=== PATIENT | male | born 1975 | race Two or more races ===

== ENCOUNTER 2020-07-07 09:16 | Outpatient (REF) | payer OTHER, SELFPAY ==
[2020-07-07 10:03] LABS: MANUAL DIFF FLAG NO
[2020-07-07 10:09] LABS: Basophils Percent Auto 0.3 % (0-2); Eosinophils Absolute Auto 0.1 X10*3/uL (0.0-0.4); Eosinophils Percent Auto 1.4 % (0-4); Hematocrit 44.6 % (42-52); Hemoglobin 14.7 g/dl (14.0-18.0); Imm Gran Pct Auto 1.1 % (0.0-0.4); Lymphocytes Absolute Auto 2.8 X10*3/uL (1.2-4.9); Lymphocytes Percent Auto 32.5 % (20-40); Mean Corpuscular Hemoglobin 29.3 pg (27.0-33.0); Mean Corpuscular Volume 88.8 fL (80-98); Monocytes Absolute Auto 0.6 X10*3/uL (0.1-1.2); Monocytes Percent Auto 7.3 % (2-11); Neutrophils Percent Auto 57.4 % (45-73); Platelet Count 146 X10*3/uL (160-400); Red Blood Count 5.02 X10*6/uL (4.60-5.80); Red Cell Distribution Width 13.6 % (11.0-16.0); White Blood Count 8.7 X10*3/uL (4.8-10.8)
[2020-07-07 10:36] LABS: Alanine Aminotransferase 74 U/L (0-40); Albumin Level 4.5 g/dL (3.5-5.0); Alkaline Phosphatase 80 U/L (39-117); Anion Gap 14 (12-20); Aspartate Amino Transferase 36 U/L (5-37); Bilirubin Total 0.3 mg/dL (0.0-1.0); Blood Urea Nitrogen 18 mg/dL (9-16); Calcium 9.3 mg/dL (8.4-10.2); Carbon Dioxide 29 mmol/L (22-29); Chloride 104 mmol/L (96-108); Cholesterol 156 mg/dL; Estimated Glomerular Filt Rate > 60; Glucose Fasting 166 mg/dL (60-99); HDL Cholesterol 40 mg/dL; LDL Cholesterol Calculated 76 mg/dl; Potassium 4.6 mmol/l (3.3-5.1); Sodium 142 mmol/L (135-145); Total Protein 7.2 g/dL (6.5-8.0); Triglycerides 204 mg/dL
[2020-07-07 10:43] LABS: Glucose Urine UA NEG (NEG); Leukocyte Esterase Urine NEG (NEG); Nitrite Urine NEG (NEG); PH 5.5 (5.0-8.0); Specific Gravity - Urine >= 1.030 (1.005-1.025); Urine Blood TRACE (NEG); Urine Ketones NEG (NEG); Urine Protein NEG (NEG-TRACE)
[2020-07-07 10:46] LABS: Appearance Urine CLEAR; Color Urine YELLOW
[2020-07-07 10:52] LABS: Creatinine Urine 161.51 mg/dL; Microalbum/Creatinine Ratio Ur 5.5 ug/mg cr
[2020-07-07 10:56] LABS: TSH reflex Free T4 1.64 mIU/mL (0.32-4.0)
[2020-07-07 11:07] LABS: RBC Urine 0-2 /HPF (0); WBC Urine 0-2 /HPF (0-4)
== END 2020-07-07 09:17 | disposition home or self-care (01) ==
LOC: HO.LAB 09:16
PROVIDERS: PCP Internal Medicine; Visit Provider Internal Medicine
DX: M51.36 Other intervertebral disc degeneration, lumbar region (principal); K21.9 Gastro-esophageal reflux disease without esophagitis; G47.62 Sleep related leg cramps; E11.9 Type 2 diabetes mellitus without complications; E78.5 Hyperlipidemia, unspecified; R79.89 Other specified abnormal findings of blood chemistry
CPT/HCPCS: 36415; 80053; 80061; 81001; 82043; 84443; 85025

== ENCOUNTER → 2020-09-22 14:45 | Outpatient (BNVA) | payer OTHER, SELFPAY | PROVIDERS: Visit Provider Nurse Practitioner Family | DX: K21.9 Gastro-esophageal reflux disease without esophagitis (principal); E78.5 Hyperlipidemia, unspecified; E11.9 Type 2 diabetes mellitus without complications; E66.9 Obesity, unspecified; Z87.891 Personal history of nicotine dependence; Z79.899 Other long term (current) drug therapy | CPT/HCPCS: Q3014 ==

== ENCOUNTER 2020-10-07 09:05 | Outpatient (REF) | payer OTHER, SELFPAY ==
[2020-10-07 10:32] LABS: MANUAL DIFF FLAG SCAN; PLT CLUMP 1; SCAN SMEAR FLAG 1
[2020-10-07 10:34] LABS: Basophils Percent Auto 0.3 % (0-2); Eosinophils Absolute Auto 0.1 X10*3/uL (0.0-0.4); Eosinophils Percent Auto 1.2 % (0-4); Hematocrit 45.6 % (42-52); Hemoglobin 14.8 g/dl (14.0-18.0); Imm Gran Abs Auto 0.08 X10*3/uL (0.00-0.03); Imm Gran Pct Auto 0.8 % (0.0-0.4); Lymphocytes Absolute Auto 3.2 X10*3/uL (1.2-4.9); Lymphocytes Percent Auto 33.5 % (20-40); Mean Corpuscular HGB Conc 32.5 g/dl (31.0-36.0); Mean Corpuscular Hemoglobin 29.1 pg (27.0-33.0); Mean Corpuscular Volume 89.6 fL (80-98); Monocytes Absolute Auto 0.7 X10*3/uL (0.1-1.2); Monocytes Percent Auto 7.2 % (2-11); Neutrophils Absolute Auto 5.4 X10*3/uL (2.0-8.3); Red Blood Count 5.09 X10*6/uL (4.60-5.80); White Blood Count 9.4 X10*3/uL (4.8-10.8)
[2020-10-07 10:53] LABS: Microalbum/Creatinine Ratio Ur 6.9 ug/mg cr
[2020-10-07 10:57] LABS: Alanine Aminotransferase 71 U/L (0-40); Albumin Level 4.4 g/dL (3.5-5.0); Alkaline Phosphatase 102 U/L (39-117); Anion Gap 13 (12-20); Aspartate Amino Transferase 35 U/L (5-37); Bilirubin Total 0.7 mg/dL (0.0-1.0); Blood Urea Nitrogen 20 mg/dL (9-16); Calcium 9.2 mg/dL (8.4-10.2); Carbon Dioxide 27 mmol/L (22-29); Chloride 104 mmol/L (96-108); Cholesterol 157 mg/dL; Estimated Glomerular Filt Rate > 60; Glucose Fasting 224 mg/dL (60-99); Glucose Urine UA 100 MG/DL (NEG); HDL Cholesterol 35 mg/dL; LDL Cholesterol Calculated 78 mg/dl; Leukocyte Esterase Urine NEG (NEG); Nitrite Urine NEG (NEG); PH 5.5 (5.0-8.0); Potassium 4.3 mmol/L (3.3-5.1); Sodium 140 mmol/L (135-145); Specific Gravity - Urine >= 1.030 (1.005-1.025); Total Protein 7.2 g/dL (6.5-8.0); Triglycerides 222 mg/dL; Urine Blood NEG (NEG); Urine Ketones 5 MG/DL (NEG); Urine Protein NEG (NEG-TRACE)
[2020-10-07 10:58] LABS: Estimated Average Glucose 186 mg/dL; Hemoglobin A1c % 8.1 %
[2020-10-07 11:06] LABS: Appearance Urine CLEAR; Color Urine YELLOW
[2020-10-07 11:18] LABS: TSH reflex Free T4 2.55 uIU/mL (0.32-4.0)
[2020-10-07 11:28] LABS: Platelet Count 151 X10*3/uL (160-400)
[2020-10-07 11:29] LABS: SLIDE REVIEW VERIFIED
== END 2020-10-07 09:06 | disposition home or self-care (01) ==
LOC: HO.LAB 09:05
PROVIDERS: PCP Internal Medicine; Visit Provider Internal Medicine
DX: E11.9 Type 2 diabetes mellitus without complications (principal); E78.5 Hyperlipidemia, unspecified; R79.89 Other specified abnormal findings of blood chemistry; E66.9 Obesity, unspecified; G47.62 Sleep related leg cramps; K21.9 Gastro-esophageal reflux disease without esophagitis
CPT/HCPCS: 36415; 80053; 80061; 81003; 82043; 83036; 84443; 85025

== ENCOUNTER 2020-12-22 02:06 | Emergency (ER) | payer OTHER, SELFPAY ==
--- NOTE | ~2020-12-22 | CT_ITS ---
EXAMINATION: CT ABDOMEN AND PELVIS WITH CONTRAST CLINICAL INFORMATION: Left lower quadrant pain COMPARISON: 03/17/2015 TECHNIQUE: Multidetector volumetric images were obtained from the superior aspect of the liver through the pubic symphysis following administration 85 mL of Omnipaque 350 intravenous contrast. Sagittal and coronal reformatted images were obtained on the technologist's workstation. Oral contrast: No This CT examination was performed using dose optimization techniques as appropriate, variously including the following: *Automated exposure control *Adjustment of mA and/or kV according to patient size (this includes techniques or standardized protocols for targeted exams where dose is matched to indication/reason for exam; i.e. extremities or head) *Use of iterative reconstruction technique DLP: 702 mGy-cm FINDINGS: LUNG BASES: The visualized lung bases are unremarkable. LIVER, GALLBLADDER, AND BILIARY TREE: The liver is normal in size and shape with decreased attenuation. No focal hepatic lesion or biliary ductal dilatation is present. The gallbladder is unremarkable with no evidence of radiopaque gallstones, gallbladder wall thickening, or obvious pericholecystic inflammatory changes. PANCREAS: Unremarkable. SPLEEN: Unremarkable. ADRENAL GLANDS: Unremarkable. KIDNEYS AND URETERS: The kidneys are normal in size, shape, and attenuation. No hydronephrosis, hydroureter, or calculi seen. No perinephric stranding. 0.8 cm hypoattenuating lesion at the upper pole of the right kidney is too small to further characterize. BLADDER: Unremarkable. GASTROINTESTINAL TRACT: The stomach is unremarkable. Normal caliber small bowel. No obstruction. Normal appendix. No colonic wall thickening or inflammatory change. No free air or free fluid. ABDOMINAL WALL: No significant hernia is appreciated. LYMPH NODES: Normal. VASCULAR: Normal caliber aorta with minimal atherosclerotic calcification. PELVIC VISCERA: Normal size prostate. Central prostate calcification. OSSEOUS STRUCTURES: No acute or suspicious osseous abnormality. Posterior fusion hardware at L5-S1. CT/CT abdomen pelvis w con IMPRESSION: No acute findings of the abdomen or pelvis. No inflammatory change. Hepatic steatosis.
[2020-12-22 02:24] VITALS: BP 144/92; PULSE 83; RESP 18; TEMP 36.3; O2SAT 98; BMI 32.4
[2020-12-22 03:04] LABS: Appearance Urine CLEAR; Color Urine DARK YELLOW; Glucose Urine UA 250 MG/DL (NEG); Leukocyte Esterase Urine NEG (NEG); Nitrite Urine NEG (NEG); PH 5.5 (5.0-8.0); Specific Gravity - Urine >= 1.030 (1.005-1.025); UACC Culture Trigger NO; Urine Blood NEG (NEG); Urine Ketones NEG (NEG); Urine Protein NEG (NEG-TRACE)
[2020-12-22 03:07] LABS: MANUAL DIFF FLAG NO
[2020-12-22 03:08] LABS: Basophils Percent Auto 0.2 % (0-2); Eosinophils Absolute Auto 0.1 X10*3/uL (0.0-0.4); Eosinophils Percent Auto 1.4 % (0-4); Hematocrit 39.1 % (42-52); Imm Gran Abs Auto 0.07 X10*3/uL (0.00-0.03); Imm Gran Pct Auto 0.8 % (0.0-0.4); Lymphocytes Absolute Auto 3.5 X10*3/uL (1.2-4.9); Lymphocytes Percent Auto 38.8 % (20-40); Mean Corpuscular HGB Conc 33.2 g/dl (31.0-36.0); Mean Corpuscular Hemoglobin 29.5 pg (27.0-33.0); Mean Corpuscular Volume 88.7 fL (80-98); Mean Platelet Volume 10.7 fL (9.4-12.4); Monocytes Absolute Auto 0.8 X10*3/uL (0.1-1.2); Monocytes Percent Auto 8.4 % (2-11); Neutrophils Absolute Auto 4.6 X10*3/uL (2.0-8.3); Neutrophils Percent Auto 50.4 % (45-73); Platelet Count 232 X10*3/uL (160-400); Red Blood Count 4.41 X10*6/uL (4.60-5.80); Red Cell Distribution Width 13.5 % (11.0-16.0); White Blood Count 9.1 X10*3/uL (4.8-10.8)
--- NOTE | 2020-12-22 03:32 | ED.ABDPAIN ---
HPI - Abdominal Pain General Chief Complaint: Abdominal Pain Stated Complaint: ABD pain Time Seen by Provider: 12/22/20 02:32 Source: patient Mode of arrival: ambulatory History of Present Illness HPI narrative: 45-year-old male with history of diabetes, GERD states that he began having mild abdominal discomfort in mid to left lower quadrant that is nonradiating and rated at a 5/10 without associated fever, chills, nausea, vomiting, diarrhea. Patient states that he has had a left inguinal hernia repair but otherwise no other intra-abdominal surgical history. Patient's last bowel movement was yesterday and he has continued to pass flatus. Otherwise, he denies any urinary pain / burning /frequency, shortness of breath, chest pain / palpitations. Related Data Home Medications Medication Instructions Recorded Confirmed dulaglutide 1.5 mg/0.5 mL 1.5 mg SUBCUT QWEEK 04/01/20 11/19/20 subcutaneous pen injector oxycodone 10 mg tablet 10 mg PO Q6-8H PRN tab 06/18/20 10/06/20 Previous Rx's Medication Instructions Recorded lancets 28 gauge See Rx Instructions .ROUTE BID 04/07/20 #200 ea blood-glucose meter #1 ea 05/04/20 lancets 28 gauge #100 ea 05/04/20 metformin 1,000 mg tablet 1,000 mg PO BID #180 tab 07/21/20 flash glucose sensor #1 ea 08/07/20 flash glucose sensor #1 ea 08/07/20 flash glucose sensor #1 ea 08/27/20 flash glucose scanning reader #1 ea 09/04/20 pantoprazole 40 mg tablet,delayed 40 mg PO DAILY 90 Days #90 tab 09/22/20 release blood sugar diagnostic 1 strip MISCELLANEOUS BID #200 11/08/20 strip amoxicillin 875 mg-potassium 1 tab PO BID #20 tab 11/19/20 clavulanate 125 mg tablet prednisone 20 mg tablet 20 mg PO .COMPLEX #18 tab 11/19/20 glipizide 5 mg tablet 5 mg PO DAILY #90 tab 11/27/20 pioglitazone 30 mg tablet 30 mg PO DAILY #30 tab 12/05/20 Allergies Allergy/AdvReac Type Severity Reaction Status Date / Time cyclobenzaprine AdvReac Severe confusion Verified 11/19/20 09:57 Review of Systems Review of Systems Pertinent positives and negatives as stated in HPI 10 point review of systems is otherwise negative. Physical Exam Vital Signs: Vital Signs: Last Vital Signs Temp 97.3 F 12/22/20 02:24 Pulse 75 12/22/20 04:00 Resp 20 12/22/20 04:00 BP 139/95 H 12/22/20 04:00 Pulse Ox 98 12/22/20 04:00 Body Mass Index 32.4 VITAL SIGNS: Reviewed. GENERAL: Well developed, well nourished, in no acute distress. HEAD: Normocephalic/atraumatic EYES: PERRLA, EOMI EARS: Ext canals without abnormality OROPHARYNX: no oral lesions noted, posterior pharynx clear NECK: Supple, no adenopathy LUNGS: Normal breath sounds. No adventitious sounds or accessory muscle use. SpO2<98> CARDIOVASCULAR: Regular rate and rhythm without noted murmurs, no JVD or lower extremity edema. ABDOMEN: Soft, Mild tenderness to palpation over left lower quadrant and mid lower abdomen, non-distended with bowel sounds. No rigidity. No guarding. No palpable masses or hernias noted SKIN: Inspection of the skin reveals no rashes NEUROLOGIC: Alert and oriented x 4. Strength and sensation to light touch were grossly intact x 4. Course Course Course Narrative: 45-year-old male with history and clinical presentation suggestive of possible early diverticulitis and less likely hernia and doubt SBO. Review of all investigations negative for any acute findings. All results discussed with patient at bedside and he will be discharged in stable condition with suspected abdominal muscle strain. MDM - Abdominal Pain Lab Data Result diagrams: 12/22/20 02:59 12/22/20 02:59 Labs: Lab Results 12/22/20 12/22/20 12/22/20 Range/Units 02:59 02:59 02:59 WBC 9.1 (4.8-10.8) X10*3/uL RBC 4.41 L (4.60-5.80) X10*6/uL Hgb 13.0 L (14.0-18.0) g/dl Hct 39.1 L (42-52) % MCV 88.7 (80-98) fL MCH 29.5 (27.0-33.0) pg MCHC 33.2 (31.0-36.0) g/dl RDW 13.5 (11.0-16.0) % Plt Count 232 D (160-400) X10*3/uL MPV 10.7 (9.4-12.4) fL Immature Gran % (Auto) 0.8 H (0.0-0.4) % Neut % (Auto) 50.4 (45-73) % Lymph % (Auto) 38.8 (20-40) % [place] % (Auto) 8.4 (2-11) % Eos % (Auto) 1.4 (0-4) % Baso % (Auto) 0.2 (0-2) % Lymph # (Auto) 3.5 (1.2-4.9) X10*3/uL [place] # (Auto) 0.8 (0.1-1.2) X10*3/uL Eos # (Auto) 0.1 (0.0-0.4) X10*3/uL Baso # (Auto) 0.0 (0.0-0.2) X10*3/uL Abs Immat Gran (auto) 0.07 H (0.00-0.03) X10*3/uL Absolute Neuts (auto) 4.6 (2.0-8.3) X10*3/uL Absolute Nucleated RBC 0.000 (0.0-0.012) X10*3/uL Nucleated RBC % (auto) 0.0 (0.0-0.2) /100WBC Sodium 142 (135-145) mmol/L Potassium 4.1 (3.3-5.1) mmol/L Chloride 108 (96-108) mmol/L Carbon Dioxide 25 (22-29) mmol/L Anion Gap 13 (12-20) BUN 15 (9-16) mg/dL Creatinine 0.94 (0.5-1.4) mg/dL Estim Creat Clear Calc 102.7 Estimated GFR > 60 Random Glucose 218 H (60-115) mg/dL Calcium 9.3 (8.4-10.2) mg/dL Total Bilirubin 0.2 (0.0-1.0) mg/dL AST 20 D (5-37) U/L ALT 41 H (0-40) U/L Alkaline Phosphatase 85 (39-117) U/L Total Protein 6.5 (6.5-8.0) g/dL Albumin 4.0 (3.5-5.0) g/dL Lipase 55 (8-78) U/L Urine Color DARK YELLOW Urine Appearance CLEAR Urine pH 5.5 (5.0-8.0) Ur Specific [place] >= 1.030 H (1.005-1.025) Urine Protein NEG (NEG-TRACE) MG/DL Urine Glucose (UA) 250 H (NEG) MG/DL Urine Ketones NEG (NEG) MG/DL Urine Blood NEG (NEG) Urine Nitrite NEG (NEG) Ur Leukocyte Esterase NEG (NEG) Discharge Plan Discharge Clinical Impression: Abdominal muscle strain Patient Disposition: Home, Self-Care Instructions: Muscle Strain (ED) Additional Instructions: 1. Resume all home medications as prescribed. 2. recommend [id number] Tylenol/ ibuprofen as needed for pain control. 3. Please follow-up with your primary care provider for re-evaluation and further outpatient follow-up. Return to the ER for acute worsening of symptoms. Prescriptions: No Action lancets [FreeStyle Lancets] 28 gauge misc See Rx Instructions .ROUTE BID Qty: 200 RF: 0 (DME) lancets [FreeStyle Lancets] 28 gauge misc See Rx Instructions .ROUTE .MEDSUPPLY Qty: 100 RF: 0 (DME) blood-glucose meter [FreeStyle Lite Meter] Kit See Rx Instructions .ROUTE .MEDSUPPLY Qty: 1 RF: 0 oxycodone 10 mg tablet 10 mg PO Q6-8H PRNRF: 0 metformin 1,000 mg tablet 1,000 mg PO BID Qty: 180 RF: 3 (DME) FreeStyle Nikhil 14 Day Sensor Kit See Rx Instructions .ROUTE .MEDSUPPLY Qty: 1 RF: 0 (DME) FreeStyle Nikhil 2 Sensor Kit See Rx Instructions .ROUTE .MEDSUPPLY Qty: 1 RF: 12 (DME) FreeStyle Nikhil 14 Day Sensor Kit See Rx Instructions .ROUTE .MEDSUPPLY Qty: 1 RF: 12 (DME) FreeStyle Nikhil 2 [place] Misc See Rx Instructions .ROUTE .MEDSUPPLY Qty: 1 RF: 0 blood sugar diagnostic [FreeStyle Lite Strips] Strip 1 strip miscellaneous BID Qty: 200 RF: 0 glipizide 5 mg tablet 5 mg PO DAILY Qty: 90 RF: 0 pioglitazone 30 mg tablet 30 mg PO DAILY Qty: 30 RF: 3 Trulicity 1.5 mg/0.5 mL pen injector 1.5 mg subcut QWEEK RF: 0 prednisone 20 mg tablet 20 mg PO .COMPLEX Qty: 18 RF: 0 amoxicillin-pot clavulanate [Augmentin] 875-125 mg tablet 1 tab PO BID Qty: 20 RF: 0 pantoprazole 40 mg tablet,delayed release (DR/EC) 40 mg PO DAILY 90 Days Qty: 90 RF: 2 Referrals: Aki Ritchie MD [Primary Care Provider] - 2 days [facility] Past Medical History Source: nursing notes reviewed Medical History Diabetes mellitus Dyslipidemia Elevated LFTs Erectile dysfunction GERD (gastroesophageal reflux disease) Lumbar degenerative disc disease Nocturnal leg cramps Obesity (BMI 30-39.9) Osteoarthritis of right shoulder Right wrist pain Surgical History History of left inguinal hernia repair (~03/2017) Status post lumbar spine surgery for decompression of spinal cord Family History Family History Father Medical history unknown Mother Medical history unknown Stroke Son No problems noted. Social History Social History Household Members: None Alcohol intake: current Alcohol intake frequency: holidays/special occasions only Advance Directives: No
[2020-12-22 03:40] LABS: Alanine Aminotransferase 41 U/L (0-40); Alkaline Phosphatase 85 U/L (39-117); Anion Gap 13 (12-20); Aspartate Amino Transferase 20 U/L (5-37); Bilirubin Total 0.2 mg/dL (0.0-1.0); Blood Urea Nitrogen 15 mg/dL (9-16); Calcium 9.3 mg/dL (8.4-10.2); Carbon Dioxide 25 mmol/L (22-29); Chloride 108 mmol/L (96-108); Creatinine Clr Calc Pharmacy 102.7; Estimated Glomerular Filt Rate > 60; Glucose Random 218 mg/dL (60-115); Lipase 55 U/L (8-78); Potassium 4.1 mmol/L (3.3-5.1); Sodium 142 mmol/L (135-145); Total Protein 6.5 g/dL (6.5-8.0)
[2020-12-22 04:00] VITALS: BP 139/95; PULSE 75; RESP 20; O2SAT 98
[2020-12-22] MEDS: iohexoL 350 MG/ML 100 ML INFUS..BTL 85 ML IV (04:02)
== END 2020-12-22 04:35 | disposition home or self-care (01) ==
PROVIDERS: Emergency Provider Student in an Organized Health Care Education/Training Program; PCP Internal Medicine
DX: S39.011A Strain of muscle, fascia and tendon of abdomen, initial encounter (principal); X58.XXXA Exposure to other specified factors, initial encounter; Y93.9 Activity, unspecified; Y92.9 Unspecified place or not applicable; Y99.9 Unspecified external cause status
CPT/HCPCS: 36415; 74177; 80053; 81003; 83690; 85025; 99284; Q9967

== ENCOUNTER 2020-12-23 03:52 | Emergency (ER) | payer OTHER, SELFPAY ==
[2020-12-23 04:09] VITALS: BP 146/92; PULSE 84; RESP 22; TEMP 37; O2SAT 97; BMI 69.3
[2020-12-23 04:40] LABS: MANUAL DIFF FLAG NO
[2020-12-23 04:42] LABS: Basophils Percent Auto 0.2 % (0-2); Eosinophils Absolute Auto 0.1 X10*3/uL (0.0-0.4); Eosinophils Percent Auto 1.3 % (0-4); Hemoglobin 13.1 g/dl (14.0-18.0); Imm Gran Abs Auto 0.07 X10*3/uL (0.00-0.03); Imm Gran Pct Auto 0.7 % (0.0-0.4); Lymphocytes Absolute Auto 3.5 X10*3/uL (1.2-4.9); Lymphocytes Percent Auto 37.7 % (20-40); Mean Corpuscular HGB Conc 33.6 g/dl (31.0-36.0); Mean Corpuscular Hemoglobin 29.8 pg (27.0-33.0); Mean Corpuscular Volume 88.8 fL (80-98); Mean Platelet Volume 10.6 fL (9.4-12.4); Monocytes Absolute Auto 0.8 X10*3/uL (0.1-1.2); Monocytes Percent Auto 8.2 % (2-11); Neutrophils Absolute Auto 4.9 X10*3/uL (2.0-8.3); Neutrophils Percent Auto 51.9 % (45-73); Platelet Count 238 X10*3/uL (160-400); Red Blood Count 4.39 X10*6/uL (4.60-5.80); Red Cell Distribution Width 13.6 % (11.0-16.0); White Blood Count 9.4 X10*3/uL (4.8-10.8)
[2020-12-23 05:09] LABS: Alanine Aminotransferase 43 U/L (0-40); Alkaline Phosphatase 88 U/L (39-117); Anion Gap 14 (12-20); Aspartate Amino Transferase 22 U/L (5-37); Bilirubin Total 0.4 mg/dL (0.0-1.0); Blood Urea Nitrogen 17 mg/dL (9-16); Calcium 9.2 mg/dL (8.4-10.2); Carbon Dioxide 25 mmol/L (22-29); Chloride 106 mmol/L (96-108); Creatinine Clr Calc Pharmacy 154.8; Estimated Glomerular Filt Rate > 60; Glucose Random 288 mg/dL (60-115); Potassium 3.8 mmol/L (3.3-5.1); Sodium 141 mmol/L (135-145); Total Protein 6.5 g/dL (6.5-8.0)
[2020-12-23] MEDS: Phenazopyridine HCL 200 MG TABLET PO (05:10)
--- NOTE | 2020-12-23 05:11 | ED.MALEGU ---
HPI - Male Genitourinary General Chief complaint: Urogenital-Male Stated complaint: Pelvic pain Time Seen by Provider: 12/23/20 05:05 Source: patient Mode of arrival: ambulatory Limitations: no limitations History of Present Illness HPI Narrative: patient comes to emergency room complaining of dysuria. Patient states that yesterday he was seen here for abdominal pain, diagnosed with abdominal muscle strain. However, patient states that starting yesterday every time that he urinates it lynne, denies hematuria. Denies fever chills, no flank pain. Denies testicular pain. Denies concerns for sexually transmitted disease Related Data Home Medications Medication Instructions Recorded Confirmed dulaglutide 1.5 mg/0.5 mL 1.5 mg SUBCUT QWEEK 04/01/20 11/19/20 subcutaneous pen injector oxycodone 10 mg tablet 10 mg PO Q6-8H PRN tab 06/18/20 10/06/20 Previous Rx's Medication Instructions Recorded lancets 28 gauge See Rx Instructions .ROUTE BID 04/07/20 #200 ea blood-glucose meter #1 ea 05/04/20 lancets 28 gauge #100 ea 05/04/20 metformin 1,000 mg tablet 1,000 mg PO BID #180 tab 07/21/20 flash glucose sensor #1 ea 08/07/20 flash glucose sensor #1 ea 08/07/20 flash glucose sensor #1 ea 08/27/20 flash glucose scanning reader #1 ea 09/04/20 pantoprazole 40 mg tablet,delayed 40 mg PO DAILY 90 Days #90 tab 09/22/20 release blood sugar diagnostic 1 strip MISCELLANEOUS BID #200 11/08/20 strip amoxicillin 875 mg-potassium 1 tab PO BID #20 tab 11/19/20 clavulanate 125 mg tablet prednisone 20 mg tablet 20 mg PO .COMPLEX #18 tab 11/19/20 glipizide 5 mg tablet 5 mg PO DAILY #90 tab 11/27/20 pioglitazone 30 mg tablet 30 mg PO DAILY #30 tab 12/05/20 ciprofloxacin HCl 500 mg PO BID #20 tab 12/23/20 phenazopyridine 100 mg PO TID PRN #10 tab 12/23/20 Allergies Allergy/AdvReac Type Severity Reaction Status Date / Time cyclobenzaprine AdvReac Severe confusion Verified 11/19/20 09:57 Review of Systems Review of Systems: Constitutional : No Weight loss, No Fever, No Chills, No Night Sweats, No Fatigue, No Malaise ENT/Mouth : No Hearing loss, No Ear Pain, No Nasal Congestion, No Sinus Pain, No Hoarseness, No sore throat, No Rhinorrhea, No Swallowing Difficulty Eyes: No Eye Pain, No Swelling, No Redness, No Foreign Body, No Discharge, No Vision Changes Cardiovascular : No Chest Pain, No SOB, No Dyspnea on Exertion, No Orthopnea, No Edema, No Palpitations Respiratory : No Cough, No Sputum, No Wheezing, No Smoke Exposure, No Dyspnea Gastrointestinal : No Nausea, No Vomiting, No Diarrhea, No Constipation, No abdominal Pain, No Hematochezia, No Melena Genitourinary : complaining of dysuria, no urinary frequency, complaining of suprapubic discomfort, denies testicular pain, no penile discharge No Urinary Incontinence, No Urgency, No Flank Pain, No Urinary Flow Changes, No Hesitancy Musculoskeletal : No joint pain, No Myalgias, No Joint Swelling Skin : No Skin Lesions, No rash Neuro : No Weakness, No Numbness, No Paresthesias, No Loss of Consciousness, No Dizziness, No Headache Psych : No Anxiety/Panic, No Depression, No SI/HI/AH/VH, No Social Issues, Heme/Lymph: No Bruising, No Bleeding,No Lymphadenopathy Endocrine : No Polyuria, No Polydipsia, No Temperature Intolerance [facility] Past Medical History Medical History Diabetes mellitus Dyslipidemia Elevated LFTs Erectile dysfunction GERD (gastroesophageal reflux disease) Lumbar degenerative disc disease Nocturnal leg cramps Obesity (BMI 30-39.9) Osteoarthritis of right shoulder Right wrist pain Surgical History History of left inguinal hernia repair (~03/2017) Status post lumbar spine surgery for decompression of spinal cord Family History Family History Father Medical history unknown Mother Medical history unknown Stroke Son No problems noted. Social History Social History Household Members: None Alcohol intake: never Patient Tobacco Use Status: Never used Tobacco Use of substances other than those prescribed or required for medical reasons: No Advance Directives: No Advance Directives Information Provided: No Physical Exam Vital Signs: Vital Signs: Last Vital Signs Temp 98.6 F 12/23/20 06:00 Pulse 68 12/23/20 06:00 Resp 15 12/23/20 06:00 BP 142/92 H 12/23/20 06:00 Pulse Ox 97 12/23/20 06:00 Body Mass Index 69.3 Appearance: Alert. Oriented X3. No acute distress. Eyes: Pupils equal, round and reactive to light. ENT: Pharynx normal. Neck: Normal inspection. Neck supple. No lymph nodes noted. No crepitus CVS: Normal heart rate and rhythm. Pulses normal. Normal S1 and S2 Respiratory: No respiratory distress. Breath sounds normal. No Wheezing. No rales Abdomen: Soft mild suprapubic tenderness on deep palpation. No rigidity. No distention. back: Negative CVA tenderness bilaterally Skin: Skin warm and dry. Normal skin color. Normal skin turgor. Extremities: No lower extremity edema. No lower extremity edema. No Lacerations. No Rash Neuro: Oriented X 3. No motor deficit. No sensory deficit. Moving all extermities. No slurred speech. Course Course Course Narrative: patient's urinalysis is negative for UTI. Patient complaining of bladder spasms. Patient was given 1 dose of. The main emergency room. I discussed with the patient that the chlamydia results are pending. Patient's symptoms likely secondary to cystitis. Patient will be treated with antibiotic, if patient does not improve in 2-3 days, he will need to follow up with Urology, patient may need a cystoscopy. CT scan from December 22 show no acute findings in the abdomen or pelvis. MDM - Male Genitourinary Lab Data Result diagrams: 12/23/20 04:35 12/23/20 04:35 Labs: Lab Results 12/23/20 12/23/20 12/23/20 Range/Units 04:35 04:35 04:35 WBC 9.4 (4.8-10.8) X10*3/uL RBC 4.39 L (4.60-5.80) X10*6/uL Hgb 13.1 L (14.0-18.0) g/dl Hct 39.0 L (42-52) % MCV 88.8 (80-98) fL MCH 29.8 (27.0-33.0) pg MCHC 33.6 (31.0-36.0) g/dl RDW 13.6 (11.0-16.0) % Plt Count 238 (160-400) X10*3/uL MPV 10.6 (9.4-12.4) fL Immature Gran % (Auto) 0.7 H (0.0-0.4) % Neut % (Auto) 51.9 (45-73) % Lymph % (Auto) 37.7 (20-40) % [place] % (Auto) 8.2 (2-11) % Eos % (Auto) 1.3 (0-4) % Baso % (Auto) 0.2 (0-2) % Lymph # (Auto) 3.5 (1.2-4.9) X10*3/uL [place] # (Auto) 0.8 (0.1-1.2) X10*3/uL Eos # (Auto) 0.1 (0.0-0.4) X10*3/uL Baso # (Auto) 0.0 (0.0-0.2) X10*3/uL Abs Immat Gran (auto) 0.07 H (0.00-0.03) X10*3/uL Absolute Neuts (auto) 4.9 (2.0-8.3) X10*3/uL Absolute Nucleated RBC 0.000 (0.0-0.012) X10*3/uL Nucleated RBC % (auto) 0.0 (0.0-0.2) /100WBC Hold Blue Top SEE NOTE Sodium 141 (135-145) mmol/L Potassium 3.8 (3.3-5.1) mmol/L Chloride 106 (96-108) mmol/L Carbon Dioxide 25 (22-29) mmol/L Anion Gap 14 (12-20) BUN 17 H (9-16) mg/dL Creatinine 0.97 (0.5-1.4) mg/dL Estim Creat Clear Calc 154.8 Estimated GFR > 60 Random Glucose 288 H (60-115) mg/dL Calcium 9.2 (8.4-10.2) mg/dL Total Bilirubin 0.4 (0.0-1.0) mg/dL AST 22 (5-37) U/L ALT 43 H (0-40) U/L Alkaline Phosphatase 88 (39-117) U/L Total Protein 6.5 (6.5-8.0) g/dL Albumin 4.0 (3.5-5.0) g/dL Urine Color Urine Appearance Urine pH (5.0-8.0) Ur Specific [place] (1.005-1.025) Urine Protein (NEG-TRACE) MG/DL Urine Glucose (UA) (NEG) MG/DL Urine Ketones (NEG) MG/DL Urine Blood (NEG) Urine Nitrite (NEG) Ur Leukocyte Esterase (NEG) Urine RBC (0) /HPF Urine WBC (0-4) /HPF Ur Squamous Epith Cells /LPF Calcium Oxalate Crystal /LPF Urine Bacteria /LPF Urine Mucus /LPF 12/23/20 Range/Units 05:40 WBC (4.8-10.8) X10*3/uL RBC (4.60-5.80) X10*6/uL Hgb (14.0-18.0) g/dl Hct (42-52) % MCV (80-98) fL MCH (27.0-33.0) pg MCHC (31.0-36.0) g/dl RDW (11.0-16.0) % Plt Count (160-400) X10*3/uL MPV (9.4-12.4) fL Immature Gran % (Auto) (0.0-0.4) % Neut % (Auto) (45-73) % Lymph % (Auto) (20-40) % [place] % (Auto) (2-11) % Eos % (Auto) (0-4) % Baso % (Auto) (0-2) % Lymph # (Auto) (1.2-4.9) X10*3/uL [place] # (Auto) (0.1-1.2) X10*3/uL Eos # (Auto) (0.0-0.4) X10*3/uL Baso # (Auto) (0.0-0.2) X10*3/uL Abs Immat Gran (auto) (0.00-0.03) X10*3/uL Absolute Neuts (auto) (2.0-8.3) X10*3/uL Absolute Nucleated RBC (0.0-0.012) X10*3/uL Nucleated RBC % (auto) (0.0-0.2) /100WBC Hold Blue Top Sodium (135-145) mmol/L Potassium (3.3-5.1) mmol/L Chloride (96-108) mmol/L Carbon Dioxide (22-29) mmol/L Anion Gap (12-20) BUN (9-16) mg/dL Creatinine (0.5-1.4) mg/dL Estim Creat Clear Calc Estimated GFR Random Glucose (60-115) mg/dL Calcium (8.4-10.2) mg/dL Total Bilirubin (0.0-1.0) mg/dL AST (5-37) U/L ALT (0-40) U/L Alkaline Phosphatase (39-117) U/L Total Protein (6.5-8.0) g/dL Albumin (3.5-5.0) g/dL Urine Color YELLOW Urine Appearance CLEAR Urine pH 6.0 (5.0-8.0) Ur Specific [place] >= 1.030 H (1.005-1.025) Urine Protein NEG (NEG-TRACE) MG/DL Urine Glucose (UA) >=1000 H (NEG) MG/DL Urine Ketones NEG (NEG) MG/DL Urine Blood NEG (NEG) Urine Nitrite NEG (NEG) Ur Leukocyte Esterase NEG (NEG) Urine RBC 0-2 (0) /HPF Urine WBC 0-2 (0-4) /HPF Ur Squamous Epith Cells 1+ /LPF Calcium Oxalate Crystal 2+ /LPF Urine Bacteria NONE /LPF Urine Mucus 1+ /LPF Discharge Plan Discharge Clinical Impression: Cystitis Patient Disposition: Home, Self-Care Instructions: Pelvic Pain in Men (ED) Additional Instructions: Please follow-up with your primary care physician tomorrow. If you have any worsening or new symptoms, please return to the emergency room or call 911 Prescriptions: New ciprofloxacin HCl 500 mg tablet 500 mg PO BID Qty: 20 RF: 0 phenazopyridine 100 mg tablet 100 mg PO TID PRN (Reason: pain) Qty: 10 RF: 0 No Action lancets [FreeStyle Lancets] 28 gauge misc See Rx Instructions .ROUTE BID Qty: 200 RF: 0 (DME) lancets [FreeStyle Lancets] 28 gauge misc See Rx Instructions .ROUTE .MEDSUPPLY Qty: 100 RF: 0 (DME) blood-glucose meter [FreeStyle Lite Meter] Kit See Rx Instructions .ROUTE .MEDSUPPLY Qty: 1 RF: 0 oxycodone 10 mg tablet 10 mg PO Q6-8H PRNRF: 0 metformin 1,000 mg tablet 1,000 mg PO BID Qty: 180 RF: 3 (DME) FreeStyle Nikhil 14 Day Sensor Kit See Rx Instructions .ROUTE .MEDSUPPLY Qty: 1 RF: 0 (DME) FreeStyle Nikhil 2 Sensor Kit See Rx Instructions .ROUTE .MEDSUPPLY Qty: 1 RF: 12 (DME) FreeStyle Nikhil 14 Day Sensor Kit See Rx Instructions .ROUTE .MEDSUPPLY Qty: 1 RF: 12 (DME) FreeStyle Nikhil 2 [place] Misc See Rx Instructions .ROUTE .MEDSUPPLY Qty: 1 RF: 0 blood sugar diagnostic [FreeStyle Lite Strips] Strip 1 strip miscellaneous BID Qty: 200 RF: 0 glipizide 5 mg tablet 5 mg PO DAILY Qty: 90 RF: 0 pioglitazone 30 mg tablet 30 mg PO DAILY Qty: 30 RF: 3 Trulicity 1.5 mg/0.5 mL pen injector 1.5 mg subcut QWEEK RF: 0 prednisone 20 mg tablet 20 mg PO .COMPLEX Qty: 18 RF: 0 amoxicillin-pot clavulanate [Augmentin] 875-125 mg tablet 1 tab PO BID Qty: 20 RF: 0 pantoprazole 40 mg tablet,delayed release (DR/EC) 40 mg PO DAILY 90 Days Qty: 90 RF: 2 Referrals: Nate Xiong MD [Physician] - 2 days
[2020-12-23 05:48] LABS: Glucose Urine UA >=1000 MG/DL (NEG); Leukocyte Esterase Urine NEG (NEG); Nitrite Urine NEG (NEG); Specific Gravity - Urine >= 1.030 (1.005-1.025); Urine Blood NEG (NEG); Urine Ketones NEG (NEG); Urine Protein NEG (NEG-TRACE)
[2020-12-23 05:49] LABS: Appearance Urine CLEAR; Color Urine YELLOW
[2020-12-23 05:59] LABS: Mucus Urine 1+ /LPF; RBC Urine 0-2 /HPF (0); Squamous Epithelial Cell Urine 1+ /LPF; WBC Urine 0-2 /HPF (0-4)
[2020-12-23 06:00] VITALS: BP 142/92; PULSE 68; RESP 15; TEMP 37; O2SAT 97
[2020-12-23 06:00] LABS: Calcium Oxalate Crystals Urine 2+ /LPF
[2020-12-23 06:41] VITALS: BP 141/100; PULSE 72; RESP 13; O2SAT 98
[2020-12-23 07:21] LABS: CT PCR NOT DETECTED (Not Detect.); NG PCR NOT DETECTED (Not Detect.)
== END 2020-12-23 07:25 | disposition home or self-care (01) ==
PROVIDERS: Emergency Provider Emergency Medicine; PCP Internal Medicine
DX: N30.90 Cystitis, unspecified without hematuria (principal); E11.9 Type 2 diabetes mellitus without complications; Z79.84 Long term (current) use of oral hypoglycemic drugs
CPT/HCPCS: 36415; 80053; 81001; 85025; 87491; 87591; 99283; 99285

== ENCOUNTER 2021-01-06 11:16 | Emergency (ER) | payer OTHER, SELFPAY ==
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
[2021-01-06 11:50] VITALS: BP 140/96; PULSE 94; RESP 16; TEMP 36.9; O2SAT 97; BMI 31.4
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
[2021-01-06] MEDS: Ketorolac Tromethamine 15 MG/ML VIAL IM ×2 (13:16→13:18)
== END 2021-01-06 14:09 | disposition home or self-care (01) ==
PROVIDERS: Emergency Provider Emergency Medicine; PCP Internal Medicine
DX: Z04.1 Encounter for examination and observation following transport accident (principal); M54.5 Low back pain; M54.2 Cervicalgia
CPT/HCPCS: 72100; 96372; 99283; 99284; J1885

== ENCOUNTER 2021-01-11 10:50 | Outpatient (REF) | payer OTHER, SELFPAY ==
[2021-01-11 11:34] LABS: MANUAL DIFF FLAG NO
[2021-01-11 11:45] LABS: Estimated Average Glucose 200 mg/dL; Hemoglobin A1c % 8.6 %
[2021-01-11 11:47] LABS: Basophils Percent Auto 0.4 % (0-2); Eosinophils Absolute Auto 0.1 X10*3/uL (0.0-0.4); Eosinophils Percent Auto 1.1 % (0-4); Hematocrit 43.7 % (42-52); Hemoglobin 14.1 g/dl (14.0-18.0); Imm Gran Abs Auto 0.07 X10*3/uL (0.00-0.03); Imm Gran Pct Auto 0.9 % (0.0-0.4); Lymphocytes Absolute Auto 2.8 X10*3/uL (1.2-4.9); Lymphocytes Percent Auto 35.6 % (20-40); Mean Corpuscular HGB Conc 32.3 g/dl (31.0-36.0); Mean Corpuscular Hemoglobin 28.6 pg (27.0-33.0); Mean Corpuscular Volume 88.6 fL (80-98); Mean Platelet Volume 11.7 fL (9.4-12.4); Monocytes Absolute Auto 0.6 X10*3/uL (0.1-1.2); Monocytes Percent Auto 7.3 % (2-11); Neutrophils Absolute Auto 4.3 X10*3/uL (2.0-8.3); Neutrophils Percent Auto 54.7 % (45-73); Platelet Count 202 X10*3/uL (160-400); Red Blood Count 4.93 X10*6/uL (4.60-5.80); Red Cell Distribution Width 13.2 % (11.0-16.0); White Blood Count 7.8 X10*3/uL (4.8-10.8)
[2021-01-11 11:55] LABS: Alanine Aminotransferase 60 U/L (0-40); Albumin Level 4.4 g/dL (3.5-5.0); Alkaline Phosphatase 99 U/L (39-117); Anion Gap 12 (12-20); Aspartate Amino Transferase 35 U/L (5-37); Bilirubin Total 0.3 mg/dL (0.0-1.0); Blood Urea Nitrogen 15 mg/dL (9-16); Calcium 9.6 mg/dL (8.4-10.2); Carbon Dioxide 29 mmol/L (22-29); Chloride 106 mmol/L (96-108); Cholesterol 145 mg/dL; Estimated Glomerular Filt Rate > 60; Glucose Fasting 142 mg/dL (60-99); HDL Cholesterol 37 mg/dL; LDL Cholesterol Calculated 75 mg/dl; Potassium 4.8 mmol/L (3.3-5.1); Sodium 142 mmol/L (135-145); Total Protein 7.2 g/dL (6.5-8.0); Triglycerides 166 mg/dL
[2021-01-11 12:19] LABS: TSH reflex Free T4 2.05 uIU/mL (0.32-4.0)
[2021-01-11 12:32] LABS: Creatinine Urine 96.99 mg/dL; Microalbumin Urine < 5.0 mg/L
[2021-01-11 13:25] LABS: Glucose Urine UA NEG (NEG); Leukocyte Esterase Urine NEG (NEG); Nitrite Urine NEG (NEG); Specific Gravity - Urine 1.015 (1.005-1.025); Urine Blood NEG (NEG); Urine Ketones NEG (NEG); Urine Protein NEG (NEG-TRACE)
[2021-01-11 13:28] LABS: Appearance Urine CLEAR; Color Urine YELLOW
== END 2021-01-11 10:51 | disposition home or self-care (01) ==
LOC: HO.LAB 10:50
PROVIDERS: PCP Internal Medicine; Visit Provider Internal Medicine
DX: E66.9 Obesity, unspecified (principal); E11.9 Type 2 diabetes mellitus without complications; E78.5 Hyperlipidemia, unspecified; R79.89 Other specified abnormal findings of blood chemistry; G47.62 Sleep related leg cramps; K21.9 Gastro-esophageal reflux disease without esophagitis
CPT/HCPCS: 36415; 80053; 80061; 81003; 82043; 83036; 84443; 85025

== ENCOUNTER 2021-03-22 16:40 | Outpatient (REF) | payer OTHER, SELFPAY ==
[2021-03-22 17:02] LABS: IDNOW Serial# 9DD0AD1C; Strep A Nucleic Acid Negative (Negative)
== END 2021-03-22 16:41 | disposition home or self-care (01) ==
LOC: HO.LNP 16:40
PROVIDERS: Visit Provider Physician Assistant Medical
DX: Z20.822 Contact with and (suspected) exposure to COVID-19 (principal); J02.9 Acute pharyngitis, unspecified
CPT/HCPCS: 87651; U0003; U0005

== ENCOUNTER 2021-04-10 22:31 | Emergency (ER) | payer OTHER, SELFPAY ==
[2021-04-10 22:33] VITALS: BP 136/94; PULSE 86; RESP 16; TEMP 36.2; O2SAT 98; BMI 31.8
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
[2021-04-10] MEDS: cephALEXin 500 MG CAPSULE PO (23:24)
== END 2021-04-10 23:28 | disposition home or self-care (01) ==
PROVIDERS: Emergency Provider Emergency Medicine Emergency Medical Services; PCP Internal Medicine
DX: L03.032 Cellulitis of left toe (principal); E11.9 Type 2 diabetes mellitus without complications; Z87.891 Personal history of nicotine dependence; Z79.899 Other long term (current) drug therapy
CPT/HCPCS: 99283

== ENCOUNTER 2021-04-14 20:45 | Emergency (ER) | payer OTHER, SELFPAY ==
--- NOTE | ~2021-04-14 | XR_ITS ---
EXAMINATION: XR KNEE, RIGHT CLINICAL INFORMATION: Knee pain COMPARISON: None TECHNIQUE: Four views of the right knee. FINDINGS: Bones and soft tissues are normal. No fracture. A tiny Joint effusion may be present.. Alignment is anatomic. Joint spaces are well maintained. No abnormal soft tissue calcification. XR/XR knee RT 4V IMPRESSION: Aside from the presence of a possible tiny joint effusion, no abnormality is seen.
[2021-04-14 21:08] VITALS: BP 116/82; PULSE 106; RESP 17; TEMP 36.2; O2SAT 98; BMI 32.3
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
== END 2021-04-14 22:12 | disposition home or self-care (01) ==
PROVIDERS: Emergency Provider Emergency Medicine; PCP Internal Medicine
DX: S86.911A Strain of unspecified muscle(s) and tendon(s) at lower leg level, right leg, initial encounter (principal); E11.9 Type 2 diabetes mellitus without complications; X50.1XXA Overexertion from prolonged static or awkward postures, initial encounter; Y93.9 Activity, unspecified; Y92.9 Unspecified place or not applicable; Y99.9 Unspecified external cause status
CPT/HCPCS: 73564; 99282; 99283

== ENCOUNTER 2021-04-17 10:03 | Outpatient (REF) | payer OTHER, SELFPAY ==
[2021-04-17 10:17] LABS: MANUAL DIFF FLAG NO
[2021-04-17 10:58] LABS: Basophils Percent Auto 0.2 % (0-2); Eosinophils Absolute Auto 0.1 X10*3/uL (0.0-0.4); Eosinophils Percent Auto 1.6 % (0-4); Hematocrit 42.5 % (42.0-52.0); Hemoglobin 13.8 g/dl (14.0-18.0); Imm Gran Abs Auto 0.05 X10*3/uL (0.00-0.03); Imm Gran Pct Auto 0.6 % (0.0-0.4); Lymphocytes Absolute Auto 2.8 X10*3/uL (1.2-4.9); Lymphocytes Percent Auto 34.9 % (20-40); Mean Corpuscular HGB Conc 32.5 g/dl (31.0-36.0); Mean Corpuscular Hemoglobin 28.8 pg (27.0-33.0); Mean Corpuscular Volume 88.5 fL (80.0-98.0); Mean Platelet Volume 11.4 fL (9.4-12.4); Monocytes Absolute Auto 0.7 X10*3/uL (0.1-1.2); Monocytes Percent Auto 8.3 % (2-11); Neutrophils Percent Auto 54.4 % (45-73); Platelet Count 217 X10*3/uL (160-400); White Blood Count 8.1 X10*3/uL (4.8-10.8)
[2021-04-17 10:59] LABS: Appearance Urine CLEAR; Color Urine YELLOW; Glucose Urine UA NEG (NEG); Leukocyte Esterase Urine NEG (NEG); Nitrite Urine NEG (NEG); Urine Blood NEG (NEG); Urine Ketones NEG (NEG); Urine Protein NEG (NEG-TRACE)
[2021-04-17 11:23] LABS: Estimated Average Glucose 186 mg/dL; Hemoglobin A1c % 8.1 %
[2021-04-17 11:28] LABS: Creatinine Urine 138.72 mg/dL; Microalbum/Creatinine Ratio Ur 5.7 ug/mg cr
[2021-04-17 11:40] LABS: Alanine Aminotransferase 52 U/L (0-40); Albumin Level 4.4 g/dL (3.5-5.0); Alkaline Phosphatase 95 U/L (39-117); Anion Gap 14 (12-20); Aspartate Amino Transferase 32 U/L (5-37); Bilirubin Total 0.4 mg/dL (0.0-1.0); Blood Urea Nitrogen 16 mg/dL (9-16); Calcium 9.1 mg/dL (8.4-10.2); Carbon Dioxide 25 mmol/L (22-29); Chloride 104 mmol/L (96-108); Cholesterol 146 mg/dL; Estimated Glomerular Filt Rate > 60; Glucose Fasting 152 mg/dL (60-99); HDL Cholesterol 34 mg/dL; LDL Cholesterol Calculated 73 mg/dl; Potassium 4.8 mmol/L (3.3-5.1); Sodium 138 mmol/L (135-145); Total Protein 7.1 g/dL (6.5-8.0); Triglycerides 197 mg/dL
[2021-04-17 12:01] LABS: TSH reflex Free T4 2.28 uIU/mL (0.32-4.0); Vitamin D 25-OH Total 28.1 ng/mL (>30)
== END 2021-04-17 10:04 | disposition home or self-care (01) ==
LOC: HO.LAB 10:03
PROVIDERS: PCP Internal Medicine; Visit Provider Internal Medicine
DX: E78.00 Pure hypercholesterolemia, unspecified (principal); I10 Essential (primary) hypertension; E11.9 Type 2 diabetes mellitus without complications; E55.9 Vitamin D deficiency, unspecified
CPT/HCPCS: 36415; 80053; 80061; 81003; 82043; 82306; 83036; 84443; 85025

== ENCOUNTER 2021-05-07 21:46 | Emergency (ER) | payer OTHER, SELFPAY ==
[2021-05-07 22:14] VITALS: BP 149/81; PULSE 106; RESP 20; TEMP 36.4; O2SAT 97; BMI 31.8
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
[2021-05-07] MEDS: Ibuprofen 800 MG TABLET PO (23:10)
== END 2021-05-07 23:22 | disposition home or self-care (01) ==
PROVIDERS: Emergency Provider Emergency Medicine; PCP Internal Medicine
DX: S83.8X1A Sprain of other specified parts of right knee, initial encounter (principal); X58.XXXA Exposure to other specified factors, initial encounter; Y93.9 Activity, unspecified; Y92.9 Unspecified place or not applicable; Y99.9 Unspecified external cause status
CPT/HCPCS: 99283

== ENCOUNTER 2021-06-08 17:00 | Emergency (ER) | payer OTHER, SELFPAY ==
[2021-06-08 17:50] VITALS: BP 149/109; PULSE 92; RESP 12; TEMP 36.9; O2SAT 95; BMI 31.4
[2021-06-08 18:33] VITALS: BP 138/95; PULSE 82; RESP 16; TEMP 36.4; O2SAT 98
[2021-06-08 18:50] VITALS: BP 127/92; PULSE 75; RESP 17; TEMP 36.7; O2SAT 99
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
[2021-06-14 17:45] LABS: Lyme Abs Screen <0.90 index
== END 2021-06-08 19:26 | disposition home or self-care (01) ==
PROVIDERS: Physician Assistant; Emergency Provider Emergency Medicine; PCP Internal Medicine
DX: L03.116 Cellulitis of left lower limb (principal); E11.9 Type 2 diabetes mellitus without complications
CPT/HCPCS: 36415; 86617; 86618; 99283; 99284

== ENCOUNTER 2021-07-28 09:42 | Outpatient (REF) | payer OTHER, SELFPAY ==
[2021-07-28 10:07] LABS: MANUAL DIFF FLAG NO
[2021-07-28 10:36] LABS: Basophils Percent Auto 0.2 % (0-2); Eosinophils Absolute Auto 0.1 X10*3/uL (0.0-0.4); Eosinophils Percent Auto 1.3 % (0-4); Hematocrit 43.4 % (42.0-52.0); Hemoglobin 14.3 g/dl (14.0-18.0); Imm Gran Abs Auto 0.04 X10*3/uL (0.00-0.03); Imm Gran Pct Auto 0.4 % (0.0-0.4); Lymphocytes Absolute Auto 2.9 X10*3/uL (1.2-4.9); Lymphocytes Percent Auto 31.7 % (20-40); Mean Corpuscular HGB Conc 32.9 g/dl (31.0-36.0); Mean Corpuscular Hemoglobin 29.1 pg (27.0-33.0); Mean Corpuscular Volume 88.2 fL (80.0-98.0); Mean Platelet Volume 11.5 fL (9.4-12.4); Monocytes Absolute Auto 0.7 X10*3/uL (0.1-1.2); Monocytes Percent Auto 7.5 % (2-11); Neutrophils Absolute Auto 5.5 x10*3/uL (2.0-8.3); Neutrophils Percent Auto 58.9 % (45-73); Platelet Count 244 X10*3/uL (160-400); Red Blood Count 4.92 X10*6/uL (4.60-5.80); Red Cell Distribution Width 13.5 % (11.0-16.0); White Blood Count 9.3 X10*3/uL (4.8-10.8)
[2021-07-28 11:02] LABS: Appearance Urine HAZY; Color Urine YELLOW; Glucose Urine UA NEG (NEG); Leukocyte Esterase Urine NEG (NEG); Nitrite Urine NEG (NEG); PH 7.5 (5.0-8.0); Urine Blood NEG (NEG); Urine Ketones NEG (NEG); Urine Protein NEG (NEG-TRACE)
[2021-07-28 12:33] LABS: Creatinine Urine 116.39 mg/dL; Microalbum/Creatinine Ratio Ur 6.8 ug/mg cr
[2021-07-28 13:10] LABS: TSH reflex Free T4 1.44 uIU/mL (0.32-4.0); Vitamin D 25-OH Total 23.4 ng/mL (>30)
[2021-07-28 13:22] LABS: Alanine Aminotransferase 53 U/L (0-40); Albumin Level 4.4 g/dL (3.5-5.0); Alkaline Phosphatase 94 U/L (39-117); Anion Gap 11 (12-20); Aspartate Amino Transferase 26 U/L (5-37); Bilirubin Total 0.5 mg/dL (0.0-1.0); Carbon Dioxide 28 mmol/L (22-29); Chloride 107 mmol/L (96-108); Cholesterol 158 mg/dL; Estimated Glomerular Filt Rate > 60; Glucose Fasting 143 mg/dL (60-99); HDL Cholesterol 38 mg/dL; LDL Cholesterol Calculated 100 mg/dl; Potassium 4.4 mmol/L (3.3-5.1); Sodium 142 mmol/L (135-145); Total Protein 7.3 g/dL (6.5-8.0); Triglycerides 102 mg/dL
[2021-07-28 15:25] LABS: Estimated Average Glucose 171 mg/dL; Hemoglobin A1c % 7.6 %
[2021-07-28 15:44] LABS: Blood Urea Nitrogen 14 mg/dL (9-16); Calcium 9.7 mg/dL (8.4-10.2)
== END 2021-07-28 09:43 | disposition home or self-care (01) ==
LOC: HO.LAB 09:42
PROVIDERS: PCP Internal Medicine; Visit Provider Internal Medicine
DX: E78.00 Pure hypercholesterolemia, unspecified (principal); E11.9 Type 2 diabetes mellitus without complications; E55.9 Vitamin D deficiency, unspecified; I10 Essential (primary) hypertension
CPT/HCPCS: 36415; 80053; 80061; 81003; 82043; 82306; 83036; 84443; 85025

== ENCOUNTER 2021-10-17 21:03 | Emergency (ER) | payer OTHER, SELFPAY ==
[2021-10-17 21:35] VITALS: BP 137/96; PULSE 107; RESP 16; TEMP 36.3; O2SAT 97; BMI 31.9
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
== END 2021-10-17 22:30 | disposition home or self-care (01) ==
LOC: HO.ED 22:05
PROVIDERS: Emergency Provider Emergency Medicine; PCP Internal Medicine
DX: L03.012 Cellulitis of left finger (principal); E11.9 Type 2 diabetes mellitus without complications
CPT/HCPCS: 99283

== ENCOUNTER 2021-11-26 22:49 | Emergency (ER) | payer OTHER, SELFPAY ==
--- NOTE | ~2021-11-26 | CT_ITS ---
EXAMINATION: CT ABDOMEN AND PELVIS WITHOUT CONTRAST CLINICAL INFORMATION: Left groin pain COMPARISON: 12/22/2020 TECHNIQUE: Multidetector volumetric imaging was performed from the superior aspect of the liver through the pubic symphysis. Sagittal and coronal reformatted images were obtained on the technologist's workstation. This CT examination was performed using dose optimization techniques as appropriate, variously including the following: *Automated exposure control *Adjustment of mA and/or kV according to patient size (this includes techniques or standardized protocols for targeted exams where dose is matched to indication/reason for exam; i.e. extremities or head) *Use of iterative reconstruction technique DLP: 712 mGy-cm FINDINGS: LUNG BASES: The visualized lung bases are unremarkable. LIVER, GALLBLADDER, AND BILIARY TREE: The liver is normal in size, shape, and contour. Moderate diffuse hepatic steatosis. No focal hepatic lesion or biliary ductal dilatation is present. Gallbladder unremarkable. PANCREAS: Unremarkable. SPLEEN: Unremarkable. ADRENAL GLANDS: Unremarkable. KIDNEYS AND URETERS: The kidneys are normal in size, shape, and attenuation. No hydronephrosis, hydroureter, or calculi seen. No perinephric stranding. BLADDER: Underdistended and grossly unremarkable. GASTROINTESTINAL TRACT: The small and large bowel are unremarkable. The appendix is unremarkable. ABDOMINAL WALL: Skin thickening and fat stranding present in the suprapubic region extending inferiorly over the penis and scrotum, incompletely imaged. Small fat-containing indirect inguinal hernia on the left. LYMPH NODES: Normal. VASCULAR: Aorta is atherosclerotic but normal caliber. PELVIC VISCERA: Mild prostatomegaly. Dystrophic calcifications present in central gland. OSSEOUS STRUCTURES: Posterior spinal fusion L4-L5 with interbody spacer. CT/CT abdomen pelvis wo con IMPRESSION: * There is skin thickening and subcutaneous fat stranding and induration in the suprapubic region, and involving the penis. Findings could be compatible with cellulitis. * Small fat-containing indirect inguinal hernia on the left. * Hepatic steatosis.
[2021-11-26 23:29] VITALS: BP 137/100; PULSE 88; RESP 18; TEMP 36.9; O2SAT 98; BMI 32.3
[2021-11-26 23:47] LABS: MANUAL DIFF FLAG NO
[2021-11-26 23:48] LABS: Basophils Percent Auto 0.3 % (0-2); Eosinophils Absolute Auto 0.1 X10*3/uL (0.0-0.4); Eosinophils Percent Auto 0.5 % (0-4); Hematocrit 41.8 % (42.0-52.0); Hemoglobin 13.6 g/dl (14.0-18.0); Imm Gran Abs Auto 0.07 X10*3/uL (0.00-0.03); Imm Gran Pct Auto 0.6 % (0.0-0.4); Lymphocytes Absolute Auto 3.5 X10*3/uL (1.2-4.9); Lymphocytes Percent Auto 31.8 % (20-40); Mean Corpuscular HGB Conc 32.5 g/dl (31.0-36.0); Mean Corpuscular Hemoglobin 28.8 pg (27.0-33.0); Mean Corpuscular Volume 88.4 fL (80.0-98.0); Mean Platelet Volume 9.8 fL (9.4-12.4); Monocytes Absolute Auto 0.8 X10*3/uL (0.1-1.2); Neutrophils Absolute Auto 6.6 x10*3/uL (2.0-8.3); Neutrophils Percent Auto 59.8 % (45-73); Platelet Count 247 X10*3/uL (160-400); Red Blood Count 4.73 X10*6/uL (4.60-5.80); Red Cell Distribution Width 13.1 % (11.0-16.0)
[2021-11-26 23:52] LABS: Appearance Urine CLEAR; Color Urine YELLOW; Glucose Urine UA 250 MG/DL (NEG); Leukocyte Esterase Urine NEG (NEG); Nitrite Urine NEG (NEG); Specific Gravity - Urine >= 1.030 (1.005-1.025); Urine Blood NEG (NEG); Urine Ketones 5 MG/DL (NEG); Urine Protein NEG (NEG-TRACE)
[2021-11-27] VITALS: BP 158/105; PULSE 81; RESP 18; O2SAT 98
[2021-11-27 00:14] LABS: Alanine Aminotransferase 59 U/L (0-40); Albumin Level 4.5 g/dL (3.5-5.0); Alkaline Phosphatase 99 U/L (39-117); Anion Gap 13 (12-20); Aspartate Amino Transferase 27 U/L (5-37); Bilirubin Total 0.4 mg/dL (0.0-1.0); Blood Urea Nitrogen 22 mg/dL (9-16); Calcium 9.3 mg/dL (8.4-10.2); Carbon Dioxide 28 mmol/L (22-29); Chloride 106 mmol/L (96-108); Creatinine Clr Calc Pharmacy 92.6; Estimated Glomerular Filt Rate > 60; Glucose Random 176 mg/dL (60-115); Potassium 4.2 mmol/L (3.3-5.1); Sodium 143 mmol/L (135-145); Total Protein 7.4 g/dL (6.5-8.0)
--- NOTE | 2021-11-27 01:35 | PC.NURSE ---
pt a&ox3, hypertensive, other vss, pt c/o 12/26 pain in penis/groin. pt reports that he was doing some push ups between [id number] and noticed increased swelling and pain afterwards. POC 205. pending ED provider.
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
[2021-11-27 02:06] LABS: Appearance Urine CLEAR; Color Urine YELLOW; Glucose Urine UA 100 MG/DL (NEG); Leukocyte Esterase Urine NEG (NEG); Nitrite Urine NEG (NEG); Specific Gravity - Urine >= 1.030 (1.005-1.025); Urine Blood NEG (NEG); Urine Ketones NEG (NEG); Urine Protein NEG (NEG-TRACE)
[2021-11-27 02:22] LABS: Bacteria Urine TRACE /LPF; RBC Urine 0-2 /HPF (0); Squamous Epithelial Cell Urine TRACE /LPF; WBC Urine 0-2 /HPF (0-4)
[2021-11-27 06:45] LABS: CT PCR NOT DETECTED (Not Detect.); NG PCR NOT DETECTED (Not Detect.)
[2021-11-27 07:29] LABS: Glucose, Whole Blood 205 mg/dL (60-115)
== END 2021-11-27 04:54 | disposition home or self-care (01) ==
PROVIDERS: Emergency Provider Emergency Medicine Emergency Medical Services; PCP Internal Medicine
DX: L03.314 Cellulitis of groin (principal); K40.90 Unilateral inguinal hernia, without obstruction or gangrene, not specified as recurrent; E11.9 Type 2 diabetes mellitus without complications
CPT/HCPCS: 36415; 74176; 80053; 81001; 81003; 82947; 85025; 87491; 87591; 99284

== ENCOUNTER 2021-11-30 09:08 | Outpatient (REF) | payer OTHER, SELFPAY ==
[2021-11-30 09:32] LABS: MANUAL DIFF FLAG NO
[2021-11-30 10:26] LABS: Basophils Percent Auto 0.3 % (0-2); Eosinophils Absolute Auto 0.1 X10*3/uL (0.0-0.4); Eosinophils Percent Auto 1.1 % (0-4); Hematocrit 43.5 % (42.0-52.0); Hemoglobin 14.4 g/dl (14.0-18.0); Lymphocytes Absolute Auto 3.1 X10*3/uL (1.2-4.9); Lymphocytes Percent Auto 29.3 % (20-40); Mean Corpuscular HGB Conc 33.1 g/dl (31.0-36.0); Mean Corpuscular Hemoglobin 29.1 pg (27.0-33.0); Mean Corpuscular Volume 88.1 fL (80.0-98.0); Mean Platelet Volume 11.9 fL (9.4-12.4); Monocytes Absolute Auto 0.8 X10*3/uL (0.1-1.2); Monocytes Percent Auto 7.3 % (2-11); Neutrophils Absolute Auto 6.4 x10*3/uL (2.0-8.3); Platelet Count 239 X10*3/uL (160-400); Red Blood Count 4.94 X10*6/uL (4.60-5.80); Red Cell Distribution Width 13.1 % (11.0-16.0); White Blood Count 10.5 X10*3/uL (4.8-10.8)
[2021-11-30 10:40] LABS: Appearance Urine HAZY; Color Urine YELLOW; Glucose Urine UA 100 MG/DL (NEG); Leukocyte Esterase Urine NEG (NEG); Nitrite Urine NEG (NEG); PH 5.5 (5.0-8.0); Specific Gravity - Urine >= 1.030 (1.005-1.025); Urine Blood NEG (NEG); Urine Ketones 5 MG/DL (NEG); Urine Protein NEG (NEG-TRACE)
[2021-11-30 10:56] LABS: Alanine Aminotransferase 60 U/L (0-40); Albumin Level 4.4 g/dL (3.5-5.0); Alkaline Phosphatase 107 U/L (39-117); Anion Gap 14 (12-20); Aspartate Amino Transferase 28 U/L (5-37); Bilirubin Total 0.5 mg/dL (0.0-1.0); Blood Urea Nitrogen 19 mg/dL (9-16); Calcium 9.4 mg/dL (8.4-10.2); Carbon Dioxide 27 mmol/L (22-29); Chloride 104 mmol/L (96-108); Cholesterol 138 mg/dL; Estimated Glomerular Filt Rate > 60; Glucose Fasting 207 mg/dL (60-99); HDL Cholesterol 34 mg/dL; LDL Cholesterol Calculated 67 mg/dl; Potassium 4.2 mmol/L (3.3-5.1); Sodium 141 mmol/L (135-145); Total Protein 7.4 g/dL (6.5-8.0); Triglycerides 187 mg/dL
[2021-11-30 10:59] LABS: Estimated Average Glucose 214 mg/dL; Hemoglobin A1c % 9.1 %
[2021-11-30 11:18] LABS: TSH reflex Free T4 3.07 uIU/mL (0.32-4.0); Vitamin D 25-OH Total 33.8 ng/mL (>30)
[2021-11-30 11:31] LABS: Creatinine Urine 275.41 mg/dL; Microalbum/Creatinine Ratio Ur 5.4 ug/mg cr
== END 2021-11-30 09:09 | disposition home or self-care (01) ==
LOC: HO.LAB 09:08
PROVIDERS: PCP Internal Medicine; Visit Provider Internal Medicine
DX: E55.9 Vitamin D deficiency, unspecified (principal); E11.9 Type 2 diabetes mellitus without complications; I10 Essential (primary) hypertension; E78.00 Pure hypercholesterolemia, unspecified
CPT/HCPCS: 36415; 80053; 80061; 81003; 82043; 82306; 83036; 84443; 85025

== ENCOUNTER → 2021-12-01 13:46 | Outpatient (BNVA) | payer OTHER, SELFPAY | PROVIDERS: PCP Internal Medicine; Visit Provider Surgery | DX: N49.2 Inflammatory disorders of scrotum (principal); N48.22 Cellulitis of corpus cavernosum and penis; K40.91 Unilateral inguinal hernia, without obstruction or gangrene, recurrent; E11.9 Type 2 diabetes mellitus without complications; N52.9 Male erectile dysfunction, unspecified; E66.9 Obesity, unspecified; Z68.32 Body mass index [BMI] 32.0-32.9, adult; E78.5 Hyperlipidemia, unspecified; R79.89 Other specified abnormal findings of blood chemistry | CPT/HCPCS: 99202 ==

== ENCOUNTER → 2021-12-27 11:14 | Outpatient (BNVA) | payer OTHER, SELFPAY | PROVIDERS: PCP Internal Medicine; Visit Provider Dietitian, Registered | DX: E11.65 Type 2 diabetes mellitus with hyperglycemia (principal); Z71.3 Dietary counseling and surveillance | CPT/HCPCS: 97802 ==

== ENCOUNTER 2022-06-10 09:07 | Outpatient (REF) | payer OTHER, SELFPAY ==
[2022-06-10 10:26] LABS: Hemoglobin 14.9 g/dl (14.0-18.0); Imm Gran Abs Auto 0.08 X10*3/uL (0.00-0.03); Imm Gran Pct Auto 1.1 % (0.0-0.4); MANUAL DIFF FLAG SCAN; PLT CLUMP 1; Red Cell Distribution Width 12.6 % (11.0-16.0); SCAN SMEAR FLAG 1
[2022-06-10 10:28] LABS: Basophils Percent Auto 0.4 % (0-2); Eosinophils Absolute Auto 0.1 X10*3/uL (0.0-0.4); Eosinophils Percent Auto 1.2 % (0-4); Hematocrit 44.2 % (42.0-52.0); Lymphocytes Absolute Auto 2.4 X10*3/uL (1.2-4.9); Lymphocytes Percent Auto 33.2 % (20-40); Mean Corpuscular HGB Conc 33.7 g/dl (31.0-36.0); Mean Corpuscular Hemoglobin 28.8 pg (27.0-33.0); Mean Corpuscular Volume 85.5 fL (80.0-98.0); Monocytes Absolute Auto 0.5 X10*3/uL (0.1-1.2); Monocytes Percent Auto 7.1 % (2-11); Neutrophils Absolute Auto 4.2 x10*3/uL (2.0-8.3); Red Blood Count 5.17 X10*6/uL (4.60-5.80)
[2022-06-10 10:31] LABS: Estimated Average Glucose 246 mg/dL; Hemoglobin A1c % 10.2 %
[2022-06-10 10:32] LABS: Appearance Urine Clear; Color Urine Yellow; Glucose Urine UA >=1000 mg/dL (Negative); Leukocyte Esterase Urine Negative (Negative); Nitrite Urine Negative (Negative); PH 5.5 (5.0-9.0); Specific Gravity - Urine >= 1.030 (1.005-1.025); UMIC TRIGGER UACC YES; Urine Blood Negative (Negative); Urine Ketones Trace mg/dL (Negative); Urine Protein Negative (Neg-Trace)
[2022-06-10 10:40] LABS: SLIDE REVIEW VERIFIED; White Blood Count 7.3 X10*3/uL (4.8-10.8)
[2022-06-10 10:49] LABS: Bacteria Urine None Seen (None Seen); Hyaline Casts Urine 0-2 /LPF (0-2); RBC Urine 0-2 /HPF (0-2); Squamous Epithelial Cell Urine 0-2 /HPF (0-2); WBC Urine 0-5 /HPF (0-5)
[2022-06-10 11:12] LABS: Alanine Aminotransferase 67 U/L (0-40); Albumin Level 4.4 g/dL (3.5-5.0); Alkaline Phosphatase 125 U/L (39-117); Anion Gap 14 (12-20); Aspartate Amino Transferase 33 U/L (5-37); Bilirubin Total 0.4 mg/dL (0.0-1.0); Blood Urea Nitrogen 19 mg/dL (9-16); Calcium 9.3 mg/dL (8.4-10.2); Carbon Dioxide 26 mmol/L (22-29); Chloride 103 mmol/L (96-108); Cholesterol 148 mg/dL; Estimated Glomerular Filt Rate > 60; Glucose Fasting 330 mg/dL (60-99); HDL Cholesterol 30 mg/dL; Potassium 4.2 mmol/L (3.3-5.1); Sodium 139 mmol/L (135-145); Thyroid Stimulating Hormone 2.22 uIU/mL (0.32-4.0); Total Protein 7.3 g/dL (6.5-8.0); Triglycerides 449 mg/dL
[2022-06-10 11:28] LABS: Creatinine Urine 81.03 mg/dL; Microalbum/Creatinine Ratio Ur 19.7 ug/mg cr
== END 2022-06-10 09:08 | disposition home or self-care (01) ==
LOC: HO.LAB 09:07
PROVIDERS: PCP Internal Medicine; Visit Provider Internal Medicine
DX: I10 Essential (primary) hypertension (principal); E03.9 Hypothyroidism, unspecified; E78.00 Pure hypercholesterolemia, unspecified; E11.9 Type 2 diabetes mellitus without complications
CPT/HCPCS: 36415; 80053; 80061; 81001; 82043; 83036; 84443; 85025

== ENCOUNTER 2022-07-16 21:41 | Emergency (ER) | payer OTHER, SELFPAY ==
[2022-07-16 21:42] VITALS: BP 167/110; PULSE 113; RESP 20; TEMP 37.6; O2SAT 95; BMI 31.4
[2022-07-16 22:14] LABS: COVID-19 Test Negative (Negative); IDNOW Serial# 16C4AD1C; IDNOW Serial# BCCEAD1C; Influenza A Positive (Negative); Influenza B2 Negative (Negative)
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
[2022-07-16] MEDS: Ibuprofen 600 MG TABLET PO (22:49)
--- NOTE | 2022-07-16 22:51 | PC.NURSE ---
pt medicated per MAR for 01/26 body aches/joint pain
== END 2022-07-16 22:52 | disposition home or self-care (01) ==
PROVIDERS: Emergency Provider Emergency Medicine; PCP Internal Medicine
DX: J11.1 Influenza due to unidentified influenza virus with other respiratory manifestations (principal); J02.9 Acute pharyngitis, unspecified; Z20.822 Contact with and (suspected) exposure to COVID-19
CPT/HCPCS: 87502; 87635; 99283

== ENCOUNTER 2022-09-02 11:07 | Outpatient (REF) | payer OTHER, SELFPAY ==
[2022-09-02 11:55] LABS: Basophils Percent Auto 0.4 % (0-2); Eosinophils Absolute Auto 0.1 X10*3/uL (0.0-0.4); Eosinophils Percent Auto 1.1 % (0-4); Hematocrit 44.2 % (42.0-52.0); Hemoglobin 14.6 g/dl (14.0-18.0); Imm Gran Abs Auto 0.06 X10*3/uL (0.00-0.03); Imm Gran Pct Auto 0.8 % (0.0-0.4); Lymphocytes Absolute Auto 2.6 X10*3/uL (1.2-4.9); Lymphocytes Percent Auto 36.2 % (20-40); MANUAL DIFF FLAG SCAN; Mean Corpuscular Volume 87.9 fL (80.0-98.0); Monocytes Absolute Auto 0.6 X10*3/uL (0.1-1.2); Monocytes Percent Auto 7.8 % (2-11); Neutrophils Absolute Auto 3.8 x10*3/uL (2.0-8.3); Neutrophils Percent Auto 53.7 % (45-73); PLT CLUMP 1; Red Blood Count 5.03 X10*6/uL (4.60-5.80); Red Cell Distribution Width 13.1 % (11.0-16.0); SCAN SMEAR FLAG 1
[2022-09-02 12:06] LABS: Estimated Average Glucose 269 mg/dL
[2022-09-02 12:13] LABS: White Blood Count 7.1 X10*3/uL (4.8-10.8)
[2022-09-02 12:16] LABS: SLIDE REVIEW VERIFIED
[2022-09-02 12:30] LABS: Alanine Aminotransferase 78 U/L (0-40); Albumin Level 4.3 g/dL (3.5-5.0); Alkaline Phosphatase 101 U/L (39-117); Anion Gap 13 (12-20); Aspartate Amino Transferase 45 U/L (5-37); Bilirubin Total 0.8 mg/dL (0.0-1.0); Blood Urea Nitrogen 17 mg/dL (9-16); Carbon Dioxide 28 mmol/L (22-29); Chloride 104 mmol/L (96-108); Cholesterol 151 mg/dL; Estimated Glomerular Filt Rate > 60; Glucose Fasting 188 mg/dL (60-99); HDL Cholesterol 39 mg/dL; LDL Cholesterol Calculated 88 mg/dl; Potassium 4.3 mmol/L (3.3-5.1); Sodium 141 mmol/L (135-145); Total Protein 6.8 g/dL (6.5-8.0); Triglycerides 122 mg/dL
[2022-09-02 12:47] LABS: TSH reflex Free T4 2.08 uIU/mL (0.32-4.0); Vitamin D 25-OH Total 32.2 ng/mL (>30)
[2022-09-02 12:52] LABS: Appearance Urine Clear; Color Urine Yellow; Glucose Urine UA Negative (Negative); Leukocyte Esterase Urine Negative (Negative); Nitrite Urine Negative (Negative); PH 5.5 (5.0-9.0); Specific Gravity - Urine 1.025 (1.005-1.025); Urine Blood Negative (Negative); Urine Ketones Negative (Negative); Urine Protein Negative (Neg-Trace)
[2022-09-02 13:10] LABS: Creatinine Urine 172.47 mg/dL; Microalbum/Creatinine Ratio Ur 6.3 ug/mg cr
== END 2022-09-02 11:08 | disposition home or self-care (01) ==
LOC: HO.LAB 11:07
PROVIDERS: PCP Internal Medicine; Visit Provider Internal Medicine
DX: E11.9 Type 2 diabetes mellitus without complications (principal); E55.9 Vitamin D deficiency, unspecified; E78.00 Pure hypercholesterolemia, unspecified; R30.0 Dysuria; I10 Essential (primary) hypertension
CPT/HCPCS: 36415; 80053; 80061; 81003; 82043; 82306; 83036; 84443; 85025

== ENCOUNTER 2022-12-12 07:41 | Outpatient (REF) | payer OTHER, SELFPAY ==
[2022-12-12 08:32] LABS: MANUAL DIFF FLAG SCAN
[2022-12-12 08:35] LABS: Basophils Percent Auto 0.4 % (0-2); Eosinophils Absolute Auto 0.1 X10*3/uL (0.0-0.4); Eosinophils Percent Auto 1.1 % (0-4); Hematocrit 44.5 % (42.0-52.0); Hemoglobin 14.7 g/dl (14.0-18.0); Imm Gran Abs Auto 0.07 X10*3/uL (0.00-0.03); Imm Gran Pct Auto 0.8 % (0.0-0.4); Lymphocytes Percent Auto 43.2 % (20-40); Mean Corpuscular Hemoglobin 28.7 pg (27.0-33.0); Mean Corpuscular Volume 86.7 fL (80.0-98.0); Monocytes Absolute Auto 0.6 X10*3/uL (0.1-1.2); Monocytes Percent Auto 6.9 % (2-11); Neutrophils Absolute Auto 4.4 x10*3/uL (2.0-8.3); Neutrophils Percent Auto 47.6 % (45-73); PLT CLUMP 1; Red Blood Count 5.13 X10*6/uL (4.60-5.80); Red Cell Distribution Width 13.5 % (11.0-16.0); SCAN SMEAR FLAG 1
[2022-12-12 08:43] LABS: Estimated Average Glucose 220 mg/dL; Hemoglobin A1c % 9.3 %
[2022-12-12 09:05] LABS: White Blood Count 9.1 X10*3/uL (4.8-10.8)
[2022-12-12 09:06] LABS: SLIDE REVIEW VERIFIED
[2022-12-12 09:09] LABS: Alanine Aminotransferase 53 U/L (0-40); Albumin Level 4.1 g/dL (3.5-5.0); Alkaline Phosphatase 100 U/L (39-117); Anion Gap 15 (12-20); Aspartate Amino Transferase 30 U/L (5-37); Bilirubin Total 0.5 mg/dL (0.0-1.0); Blood Urea Nitrogen 17 mg/dL (9-16); Calcium 9.7 mg/dL (8.4-10.2); Carbon Dioxide 27 mmol/L (22-29); Chloride 104 mmol/L (96-108); Cholesterol 143 mg/dL; Estimated Glomerular Filt Rate > 60; Glucose Fasting 213 mg/dL (60-99); HDL Cholesterol 31 mg/dL; LDL Cholesterol Calculated 57 mg/dl; Potassium 3.8 mmol/L (3.3-5.1); Sodium 142 mmol/L (135-145); Total Protein 7.2 g/dL (6.5-8.0); Triglycerides 279 mg/dL
[2022-12-12 09:19] LABS: Appearance Urine Turbid; Color Urine Dark Yellow; Glucose Urine UA 250 mg/dL (Negative); Leukocyte Esterase Urine Negative (Negative); Nitrite Urine Negative (Negative); PH 5.5 (5.0-9.0); Specific Gravity - Urine >= 1.030 (1.005-1.025); UMIC TRIGGER UACC YES; Urine Blood Negative (Negative); Urine Ketones Trace mg/dL (Negative); Urine Protein 30 (1+) mg/dL (Neg-Trace)
[2022-12-12 09:26] LABS: TSH reflex Free T4 3.16 uIU/mL (0.32-4.0)
[2022-12-12 10:07] LABS: Bacteria Urine None Seen (None Seen); Calcium Oxalate Crystals Urine Present; Hyaline Casts Urine 0-2 /LPF (0-2); RBC Urine 0-2 /HPF (0-2); Squamous Epithelial Cell Urine 0-2 /HPF (0-2); WBC Urine 0-5 /HPF (0-5)
== END 2022-12-12 07:42 | disposition home or self-care (01) ==
LOC: HO.LAB 07:41
PROVIDERS: PCP Internal Medicine; Visit Provider Internal Medicine
DX: E11.9 Type 2 diabetes mellitus without complications (principal); E78.00 Pure hypercholesterolemia, unspecified; I10 Essential (primary) hypertension; R30.0 Dysuria
CPT/HCPCS: 36415; 80053; 80061; 81001; 82043; 83036; 84443; 85025

== ENCOUNTER 2023-03-13 10:55 | Outpatient (REF) | payer OTHER, SELFPAY ==
[2023-03-13 12:10] LABS: Appearance Urine Clear; Color Urine Yellow; Glucose Urine UA >=1000 mg/dL (Negative); Leukocyte Esterase Urine Negative (Negative); Nitrite Urine Negative (Negative); PH 5.5 (5.0-9.0); Specific Gravity - Urine >= 1.030 (1.005-1.025); UMIC TRIGGER UACC YES; Urine Blood Negative (Negative); Urine Ketones Trace mg/dL (Negative); Urine Protein Negative (Neg-Trace)
[2023-03-13 12:18] LABS: Estimated Average Glucose 258 mg/dL; Hemoglobin A1c % 10.6 % (<6.0)
[2023-03-13 12:28] LABS: Creatinine Urine 200.66 mg/dL; Microalbum/Creatinine Ratio Ur 8.9 ug/mg cr (<30)
[2023-03-13 12:29] LABS: Bacteria Urine None Seen (None Seen); Hyaline Casts Urine 0-2 /LPF (0-2); RBC Urine 0-2 /HPF (0-2); Squamous Epithelial Cell Urine 0-2 /HPF (0-2); WBC Urine 0-5 /HPF (0-5)
[2023-03-13 12:42] LABS: Basophils Percent Auto 0.4 % (0-2); Eosinophils Absolute Auto 0.1 X10*3/uL (0.0-0.4); Eosinophils Percent Auto 1.3 % (0-4); Imm Gran Abs Auto 0.05 X10*3/uL (0.00-0.03); Imm Gran Pct Auto 0.6 % (0.0-0.4); Lymphocytes Absolute Auto 3.1 X10*3/uL (1.2-4.9); Lymphocytes Percent Auto 38.8 % (20-40); MANUAL DIFF FLAG SCAN; Mean Corpuscular HGB Conc 33.3 g/dl (31.0-36.0); Mean Corpuscular Hemoglobin 29.1 pg (27.0-33.0); Mean Corpuscular Volume 87.4 fL (80.0-98.0); Monocytes Absolute Auto 0.6 X10*3/uL (0.1-1.2); Monocytes Percent Auto 7.5 % (2-11); Neutrophils Absolute Auto 4.1 x10*3/uL (2.0-8.3); Neutrophils Percent Auto 51.4 % (45-73); PLT CLUMP 1; Red Blood Count 5.15 X10*6/uL (4.60-5.80); Red Cell Distribution Width 12.8 % (11.0-16.0); SCAN SMEAR FLAG 1
[2023-03-13 13:27] LABS: Alanine Aminotransferase 60 U/L (0-40); Albumin Level 4.3 g/dL (3.5-5.0); Alkaline Phosphatase 94 U/L (39-117); Anion Gap 15 (12-20); Aspartate Amino Transferase 29 U/L (5-37); Bilirubin Total 0.4 mg/dL (0.0-1.0); Blood Urea Nitrogen 18 mg/dL (9-16); Calcium 9.3 mg/dL (8.4-10.2); Carbon Dioxide 26 mmol/L (22-29); Chloride 104 mmol/L (96-108); Cholesterol 146 mg/dL (<200); Estimated Glomerular Filt Rate > 60; Glucose Fasting 267 mg/dL (60-99); HDL Cholesterol 35 mg/dL (>40); LDL Cholesterol Calculated 63 mg/dL (<100); Potassium 3.9 mmol/L (3.3-5.1); Sodium 141 mmol/L (135-145); Total Protein 7.2 g/dL (6.5-8.0); Triglycerides 244 mg/dL (<150)
[2023-03-13 13:29] LABS: TSH reflex Free T4 2.85 uIU/mL (0.32-4.0); Vitamin D 25-OH Total 48.9 ng/mL (>30)
[2023-03-13 13:45] LABS: Folate 15.7 ng/mL (> or = 4.0); Vitamin B12 900 pg/mL (200-900)
[2023-03-13 14:10] LABS: White Blood Count 7.9 X10*3/uL (4.8-10.8)
[2023-03-13 14:12] LABS: SLIDE REVIEW VERIFIED
== END 2023-03-13 10:56 | disposition home or self-care (01) ==
LOC: HO.LAB 10:55
PROVIDERS: PCP Internal Medicine; Visit Provider Internal Medicine
DX: E53.8 Deficiency of other specified B group vitamins (principal); I10 Essential (primary) hypertension; E78.00 Pure hypercholesterolemia, unspecified; E11.9 Type 2 diabetes mellitus without complications; E55.9 Vitamin D deficiency, unspecified
CPT/HCPCS: 36415; 80053; 80061; 81001; 81003; 82043; 82306; 82570; 82607; 82746; 83036; 84443; 85025

== ENCOUNTER 2023-03-17 00:25 | Emergency (ER) | payer OTHER, SELFPAY ==
[2023-03-17 00:33] VITALS: BP 122/89; PULSE 90; RESP 20; TEMP 36.3; O2SAT 98; BMI 30.7
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
[2023-03-17] MEDS: Acetaminophen 325 MG TABLET 975 MG PO (01:42)
[2023-03-17] MEDS: Ibuprofen 800 MG TABLET PO (01:43)
--- NOTE | 2023-03-17 01:49 | PC.NURSE ---
pt a&o, no sob or chest pain, reviewed discharge instructions with pt, pt verbalized understanding, medicated at discharge.
== END 2023-03-17 01:51 | disposition home or self-care (01) ==
PROVIDERS: Emergency Provider Emergency Medicine; PCP Internal Medicine
DX: S39.012A Strain of muscle, fascia and tendon of lower back, initial encounter (principal); S13.4XXA Sprain of ligaments of cervical spine, initial encounter; V43.52XA Car driver injured in collision with other type car in traffic accident, initial encounter; Y93.9 Activity, unspecified; Y92.410 Unspecified street and highway as the place of occurrence of the external cause; Y99.9 Unspecified external cause status; Z79.899 Other long term (current) drug therapy; Z87.891 Personal history of nicotine dependence
CPT/HCPCS: 99283; 99284

== ENCOUNTER 2023-04-19 14:56 | Outpatient (AMB) | payer OTHER, SELFPAY ==
[2023-04-19 15:07] VITALS: BP 142/94; PULSE 105; O2SAT 98; BMI 31.0
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
== END 2023-04-19 15:37 | disposition home or self-care (01) ==
PROVIDERS: PCP Internal Medicine; Visit Provider Physician Assistant
DX: M54.2 Cervicalgia (principal); M89.8X1 Other specified disorders of bone, shoulder; V89.2XXA Person injured in unspecified motor-vehicle accident, traffic, initial encounter; Z04.3 Encounter for examination and observation following other accident
CPT/HCPCS: 99213

== ENCOUNTER 2023-04-24 12:21 | Outpatient (REF) | payer OTHER, SELFPAY ==
--- NOTE | ~2023-04-24 | XR_ITS ---
EXAMINATION: XR LUMBOSACRAL SPINE WITH OBLIQUES CLINICAL INFORMATION: Low back pain COMPARISON: 01/06/2021 TECHNIQUE: AP, both oblique, and lateral views of the lumbar spine. Lateral view of the lumbosacral junction. FINDINGS: There is straightening of lumbar lordosis. Patient is status post posterior fusion of L5-S1 pedicles, in stable position since previous examination. There is intervertebral disc spacer seen at the level of L5-S1. Position of hardware is stable. Neuroforamina are not encroached. There is no evidence of spondylolysis or spondylolisthesis. XR/XR lumbar spine 4V min IMPRESSION: No interval change.
--- NOTE | ~2023-04-24 | XR_ITS ---
EXAMINATION: XR CERVICAL SPINE CLINICAL INFORMATION: Neck pain COMPARISON: August 2015 TECHNIQUE: 5 the cervical spine including oblique views FINDINGS: There is straightening of cervical lordosis and narrowing of C5-C6 and C6-C7 intervertebral disc spaces with mild marginal spurring. There is no neuroforaminal encroachment seen. Soft tissues unremarkable. XR/XR cervical spine 4V IMPRESSION: Stable mild 2 level degenerative changes.
--- NOTE | ~2023-04-24 | XR_ITS ---
EXAMINATION: XR SCAPULA, LEFT CLINICAL INFORMATION: Left scapular pain COMPARISON: None available. TECHNIQUE: AP and scapular Y views of the left scapula. FINDINGS: The bones and soft tissues are normal. No scapular fracture. Glenohumeral and acromioclavicular alignment is normal. XR/XR scapula LT IMPRESSION: Normal left scapula.
== END 2023-04-24 12:22 | disposition home or self-care (01) ==
LOC: HO.XRAY 12:21
PROVIDERS: PCP Internal Medicine; Visit Provider Physician Assistant
DX: M54.2 Cervicalgia (principal); M54.50 Low back pain, unspecified; M89.8X1 Other specified disorders of bone, shoulder
CPT/HCPCS: 72050; 72110; 73010

== ENCOUNTER 2023-05-01 15:38 | Outpatient (AMB) | payer OTHER, SELFPAY ==
[2023-05-01 15:43] VITALS: BP 124/86; PULSE 120; O2SAT 95; BMI 30.5
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
== END 2023-05-01 16:26 | disposition home or self-care (01) ==
PROVIDERS: PCP Internal Medicine; Visit Provider Internal Medicine
DX: E11.9 Type 2 diabetes mellitus without complications (principal); E78.5 Hyperlipidemia, unspecified; R79.89 Other specified abnormal findings of blood chemistry; M25.531 Pain in right wrist; M51.36 Other intervertebral disc degeneration, lumbar region; K21.9 Gastro-esophageal reflux disease without esophagitis; G47.62 Sleep related leg cramps; N52.9 Male erectile dysfunction, unspecified; E66.9 Obesity, unspecified
CPT/HCPCS: 99499

== ENCOUNTER 2023-07-27 10:23 | Outpatient (REF) | payer OTHER, SELFPAY ==
[2023-07-27 10:41] LABS: MANUAL DIFF FLAG NO
[2023-07-27 11:12] LABS: Estimated Average Glucose 252 mg/dL; Hemoglobin A1c % 10.4 % (<6.0)
[2023-07-27 11:19] LABS: Appearance Urine Clear; Color Urine Yellow; Glucose Urine UA >=1000 mg/dL (Negative); Leukocyte Esterase Urine Negative (Negative); Nitrite Urine Negative (Negative); PH 6.5 (5.0-9.0); Specific Gravity - Urine >= 1.030 (1.005-1.025); UMIC TRIGGER UACC YES; Urine Blood Negative (Negative); Urine Ketones 15 mg/dL (Negative); Urine Protein Negative (Neg-Trace)
[2023-07-27 11:19] LABS: Basophils Percent Auto 0.3 % (0-2); Eosinophils Absolute Auto 0.1 X10*3/uL (0.0-0.4); Eosinophils Percent Auto 0.9 % (0-4); Hematocrit 46.2 % (42.0-52.0); Hemoglobin 15.5 g/dl (14.0-18.0); Imm Gran Abs Auto 0.08 X10*3/uL (0.00-0.03); Imm Gran Pct Auto 1.1 % (0.0-0.4); Lymphocytes Absolute Auto 2.3 X10*3/uL (1.2-4.9); Lymphocytes Percent Auto 30.9 % (20-40); Mean Corpuscular HGB Conc 33.5 g/dl (31.0-36.0); Mean Corpuscular Hemoglobin 29.1 pg (27.0-33.0); Mean Corpuscular Volume 86.8 fL (80.0-98.0); Monocytes Absolute Auto 0.5 X10*3/uL (0.1-1.2); Monocytes Percent Auto 6.7 % (2-11); Neutrophils Absolute Auto 4.5 x10*3/uL (2.0-8.3); Neutrophils Percent Auto 60.1 % (45-73); Platelet Count 103 X10*3/uL (160-400); Red Blood Count 5.32 X10*6/uL (4.60-5.80); Red Cell Distribution Width 12.5 % (11.0-16.0); White Blood Count 7.5 X10*3/uL (4.8-10.8)
[2023-07-27 11:26] LABS: Bacteria Urine None Seen (None Seen); Hyaline Casts Urine 0-2 /LPF (0-2); RBC Urine 0-2 /HPF (0-2); Squamous Epithelial Cell Urine 0-2 /HPF (0-2); WBC Urine 0-5 /HPF (0-5)
[2023-07-27 12:09] LABS: Creatinine Urine 63.19 mg/dL
[2023-07-27 12:10] LABS: Alanine Aminotransferase 52 U/L (0-40); Albumin Level 4.2 g/dL (3.5-5.0); Alkaline Phosphatase 81 U/L (39-117); Anion Gap 13 (12-20); Aspartate Amino Transferase 26 U/L (5-37); Bilirubin Total 0.5 mg/dL (0.0-1.0); Blood Urea Nitrogen 17 mg/dL (9-16); Calcium 9.1 mg/dL (8.4-10.2); Carbon Dioxide 25 mmol/L (22-29); Chloride 107 mmol/L (96-108); Cholesterol 159 mg/dL (<200); Estimated Glomerular Filt Rate > 60; Glucose Fasting 176 mg/dL (60-99); HDL Cholesterol 38 mg/dL (>40); LDL Cholesterol Calculated 70 mg/dL (<100); Potassium 4.1 mmol/L (3.3-5.1); Sodium 141 mmol/L (135-145); Total Protein 7.2 g/dL (6.5-8.0); Triglycerides 256 mg/dL (<150)
[2023-07-27 12:30] LABS: TSH reflex Free T4 1.14 uIU/mL (0.32-4.0); Vitamin D 25-OH Total 39.2 ng/mL (>30)
[2023-07-28 13:44] LABS: C Peptide 2.29 ng/mL (0.80-3.85)
== END 2023-07-27 10:24 | disposition home or self-care (01) ==
LOC: HO.LAB 10:23
PROVIDERS: PCP Internal Medicine; Visit Provider Internal Medicine
DX: E55.9 Vitamin D deficiency, unspecified (principal); E78.00 Pure hypercholesterolemia, unspecified; E11.9 Type 2 diabetes mellitus without complications; I10 Essential (primary) hypertension
CPT/HCPCS: 36415; 80053; 80061; 81001; 82043; 82306; 82570; 83036; 84443; 84681; 85025

== ENCOUNTER 2023-08-28 13:50 | Outpatient (AMB) | payer OTHER, SELFPAY ==
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
[2023-08-28 13:56] VITALS: BP 127/79; PULSE 93; BMI 29.7
== END 2023-08-28 14:12 | disposition home or self-care (01) ==
PROVIDERS: PCP Internal Medicine; Visit Provider Surgery
DX: Z86.010 Personal history of colon polyps (principal)
CPT/HCPCS: 99203

== ENCOUNTER → 2023-08-28 13:50 | Outpatient (BNVA) | payer OTHER, SELFPAY | PROVIDERS: PCP Internal Medicine; Visit Provider Surgery | DX: Z86.010 Personal history of colon polyps (principal) | CPT/HCPCS: 99202 ==

== ENCOUNTER 2023-09-04 22:13 | Emergency (ER) | payer OTHER, SELFPAY ==
[2023-09-04 22:23] VITALS: BP 121/89; PULSE 96; RESP 18; TEMP 37.2; O2SAT 99; BMI 29.2
[2023-09-04 22:37] LABS: Glucose, Whole Blood 250 mg/dL (60-115)
[2023-09-04 23:52] LABS: Influenza A PCR POSITIVE (Negative); Influenza B PCR NEGATIVE (Negative); Resp Syncy Virus RNA Qual PCR NEGATIVE (Negative); SARS COV2 PCR INHOUSE NEGATIVE (Negative)
== END 2023-09-05 00:58 | disposition left against medical advice (07) ==
PROVIDERS: Emergency Provider Emergency Medicine
DX: R51.9 Headache, unspecified (principal); R52 Pain, unspecified; Z11.52 Encounter for screening for COVID-19; Z20.828 Contact with and (suspected) exposure to other viral communicable diseases
CPT/HCPCS: 0241U; 82947; 99282; 99283

== ENCOUNTER 2023-10-03 09:55 | Day surgery (SDC) | payer OTHER, SELFPAY ==
[2023-09-28 07:11] VITALS: BMI 29.7
[2023-10-03 10:06] VITALS: BMI 29.6
[2023-10-03] MEDS: Lactated Ringers 1,000 ML 80 ML IVCONT (10:16)
[2023-10-03 10:31] VITALS: BP 115/88; PULSE 86; RESP 18; TEMP 36.8; O2SAT 99
[2023-10-03 10:31] LABS: Glucose, Whole Blood 210 mg/dL (60-115)
--- NOTE | 2023-10-03 10:57 | MHC.SHP ---
Pre-Procedural Eval Section A - 24 Hr Update-Section A only Date of Service: 10/03/23 Section B - Complete if H&P > 30 days Chief Complaint: Personal history of colonic polyps Details of Present Illness: has a hx of a large tubular adenoma Relevant Family History (Specify if Yes): No Relevant Social History: None Present Medications: see Short Stay Collaborative assessment Medical History: Significant History (DM, chronic back pain, OA, dyslipidemia, GERD) Allergies: Allergies Allergy/AdvReac Type Severity Reaction Status Date / Time cyclobenzaprine AdvReac Severe confusion Verified 10/03/23 10:10 Plan I have reviewed the history and physical and performed a pertinent physical examination on my patient. No changes have occurred unless specified. Time Spent With Patient Time: Total time managing care of this patient today ____ minutes.
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
--- NOTE | 2023-10-03 12:34 | W.PM.OPN ---
Operative Note Operative Note Date of Service: 10/03/23 Narrative: Preop diagnosis: History of adenomatous polyp Postop diagnosis: Small polyp, about 5 mm in the right colon near the hepatic flexure otherwise normal colonoscopy Procedure: Colonoscopy with polypectomy using cold forceps Surgeon: Lobito Solorzano MD The patient is a 48-year-old male who has a history of a large adenomatous colon polyp. He undergoes a colonoscopy every 5 years. He understands the technique of the procedure as well as the risks, benefits, and alternatives. The patient was brought to the operating room and placed in left lateral decubitus position under monitored anesthesia care. A surgical time-out was done. A full digital rectal exam was done and this did not reveal any significant anal lesions. The tip of the Olympus colonoscope was gently introduced through the anal orifice advanced with insufflation all the way to the cecum. The cecum was intubated. The cecum was identified by visualization of the ileocecal valve as well as the appendiceal orifice. The cecal mucosa was unremarkable. The scope was gradually withdrawn with careful examination of the entire colonic mucosa being done with scope withdrawal. The patient had adequate bowel prep so it was unlikely that any lesion may have been missed. In the right colon near the hepatic flexure, there was note of a 5 mm polyp. This was removed using multiple bites of a cold forceps. We continued to withdraw the scope with careful examination of the rest of colonic mucosa. The rectum was reached and there were no lesions seen. The anal canal was unremarkable. The scope was then withdrawn completely with desufflation. The patient tolerated the procedure well. There were no immediate complications. His next colonoscopy may be in the next 5 years.
[2023-10-03 12:35] VITALS: BP 137/93; PULSE 76; RESP 12; TEMP 36.1; O2SAT 97
[2023-10-03 12:40] VITALS: BP 145/96; PULSE 89; RESP 14; O2SAT 97
[2023-10-03 12:45] VITALS: BP 128/87; PULSE 76; RESP 14; O2SAT 98
[2023-10-03 12:50] VITALS: BP 126/87; PULSE 75; RESP 16; O2SAT 97
[2023-10-03 13:05] VITALS: BP 136/90; PULSE 76; RESP 16; TEMP 36.2; O2SAT 96
== END 2023-10-03 13:53 | disposition home or self-care (01) ==
PROVIDERS: Visit Provider Surgery
PROC: 0DBE8ZZ Excision of Large Intestine, Via Natural or Artificial Opening Endoscopic (ICD-10-PCS; CPT 45380; principal; 2023-10-03 12:00)
DX: Z12.11 Encounter for screening for malignant neoplasm of colon (principal); Z86.010 Personal history of colon polyps; D12.3 Benign neoplasm of transverse colon; R79.89 Other specified abnormal findings of blood chemistry; K21.9 Gastro-esophageal reflux disease without esophagitis; E78.5 Hyperlipidemia, unspecified; E66.9 Obesity, unspecified; Z68.29 Body mass index [BMI] 29.0-29.9, adult; E11.9 Type 2 diabetes mellitus without complications; Z79.84 Long term (current) use of oral hypoglycemic drugs; Z79.85 Long-term (current) use of injectable non-insulin antidiabetic drugs; Z79.899 Other long term (current) drug therapy; Z88.8 Allergy status to other drugs, medicaments and biological substances; Z87.891 Personal history of nicotine dependence
CPT/HCPCS: 45380; 82947; 88305; J0330; J2704; J3010

== ENCOUNTER → 2023-10-03 09:55 | Outpatient (BNV) | payer OTHER, SELFPAY | PROVIDERS: Visit Provider Surgery | DX: Z12.11 Encounter for screening for malignant neoplasm of colon (principal); K63.5 Polyp of colon; Z86.010 Personal history of colon polyps | CPT/HCPCS: 45380 ==

== ENCOUNTER 2023-10-16 13:14 | Outpatient (AMB) | payer OTHER, SELFPAY ==
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
== END 2023-10-16 13:30 | disposition home or self-care (01) ==
PROVIDERS: PCP Internal Medicine; Visit Provider Surgery
DX: D12.6 Benign neoplasm of colon, unspecified (principal)
CPT/HCPCS: 99212

== ENCOUNTER → 2023-10-16 13:14 | Outpatient (BNVA) | payer OTHER, SELFPAY | PROVIDERS: PCP Internal Medicine; Visit Provider Surgery | DX: D12.6 Benign neoplasm of colon, unspecified (principal); Z98.890 Other specified postprocedural states | CPT/HCPCS: 99212 ==

== ENCOUNTER 2023-11-01 15:15 | Outpatient (AMB) | payer OTHER, SELFPAY ==
[2023-11-01 15:16] VITALS: BP 118/88; PULSE 94; O2SAT 98; BMI 29.7
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
== END 2023-11-01 15:54 | disposition home or self-care (01) ==
PROVIDERS: PCP Internal Medicine; Visit Provider Internal Medicine
DX: E11.9 Type 2 diabetes mellitus without complications (principal); E78.5 Hyperlipidemia, unspecified; R79.89 Other specified abnormal findings of blood chemistry; M25.531 Pain in right wrist; M51.36 Other intervertebral disc degeneration, lumbar region; K21.9 Gastro-esophageal reflux disease without esophagitis; G47.62 Sleep related leg cramps; N52.9 Male erectile dysfunction, unspecified; E66.3 Overweight
CPT/HCPCS: 83036; 99214

== ENCOUNTER 2023-12-14 10:20 | Outpatient (AMB) | payer OTHER, SELFPAY ==
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
[2023-12-14 10:30] VITALS: BP 134/90; PULSE 90; O2SAT 96; BMI 29.7
== END 2023-12-14 11:20 | disposition home or self-care (01) ==
PROVIDERS: PCP Internal Medicine; Visit Provider Internal Medicine
DX: S29.011S Strain of muscle and tendon of front wall of thorax, sequela (principal); V89.2XXS Person injured in unspecified motor-vehicle accident, traffic, sequela; S29.019S Strain of muscle and tendon of unspecified wall of thorax, sequela
CPT/HCPCS: 99213

== ENCOUNTER 2024-01-10 09:55 | Outpatient (AMB) | payer OTHER, SELFPAY ==
[2024-01-10 09:56] VITALS: BP 104/82; PULSE 85; O2SAT 96; BMI 29.2
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
== END 2024-01-10 10:41 | disposition home or self-care (01) ==
PROVIDERS: PCP Internal Medicine; Visit Provider Internal Medicine
DX: S29.011S Strain of muscle and tendon of front wall of thorax, sequela (principal); S29.019S Strain of muscle and tendon of unspecified wall of thorax, sequela; V89.2XXS Person injured in unspecified motor-vehicle accident, traffic, sequela
CPT/HCPCS: 99213

== ENCOUNTER 2024-01-10 10:46 | Outpatient (REF) | payer OTHER, SELFPAY ==
[2024-01-10 11:10] LABS: MANUAL DIFF FLAG NO
[2024-01-10 12:24] LABS: Basophils Percent Auto 0.3 % (0-2); Eosinophils Absolute Auto 0.1 X10*3/uL (0.0-0.4); Eosinophils Percent Auto 1.4 % (0-4); Hematocrit 46.5 % (42.0-52.0); Hemoglobin 15.6 g/dl (14.0-18.0); Imm Gran Abs Auto 0.06 X10*3/uL (0.00-0.03); Imm Gran Pct Auto 0.8 % (0.0-0.4); Lymphocytes Absolute Auto 2.7 X10*3/uL (1.2-4.9); Lymphocytes Percent Auto 34.8 % (20-40); Mean Corpuscular HGB Conc 33.5 g/dl (31.0-36.0); Mean Corpuscular Hemoglobin 29.6 pg (27.0-33.0); Mean Corpuscular Volume 88.2 fL (80.0-98.0); Mean Platelet Volume 11.9 fL (9.4-12.4); Monocytes Absolute Auto 0.6 X10*3/uL (0.1-1.2); Monocytes Percent Auto 8.2 % (2-11); Neutrophils Absolute Auto 4.3 x10*3/uL (2.0-8.3); Neutrophils Percent Auto 54.5 % (45-73); Platelet Count 157 X10*3/uL (160-400); Red Blood Count 5.27 X10*6/uL (4.60-5.80); Red Cell Distribution Width 13.7 % (11.0-16.0); White Blood Count 7.9 X10*3/uL (4.8-10.8)
[2024-01-10 12:32] LABS: Estimated Average Glucose 209 mg/dL; Hemoglobin A1c % 8.9 % (<6.0)
[2024-01-10 12:53] LABS: Appearance Urine Clear; Color Urine Yellow; Glucose Urine UA >=1000 mg/dL (Negative); Leukocyte Esterase Urine Negative (Negative); Nitrite Urine Negative (Negative); PH 5.5 (5.0-9.0); Specific Gravity - Urine >= 1.030 (1.005-1.025); UMIC TRIGGER UACC YES; Urine Blood Negative (Negative); Urine Ketones Trace mg/dL (Negative); Urine Protein Negative (Neg-Trace)
[2024-01-10 13:02] LABS: Bacteria Urine None Seen (None Seen); Hyaline Casts Urine 0-2 /LPF (0-2); RBC Urine 0-2 /HPF (0-2); Squamous Epithelial Cell Urine 0-2 /HPF (0-2); WBC Urine 0-5 /HPF (0-5)
[2024-01-10 13:36] LABS: Alanine Aminotransferase 47 U/L (0-40); Albumin Level 4.5 g/dL (3.5-5.0); Alkaline Phosphatase 73 U/L (39-117); Anion Gap 11 (12-20); Aspartate Amino Transferase 29 U/L (5-37); Bilirubin Total 0.4 mg/dL (0.0-1.0); Blood Urea Nitrogen 18 mg/dL (9-16); Calcium 9.8 mg/dL (8.4-10.2); Carbon Dioxide 29 mmol/L (22-29); Chloride 106 mmol/L (96-108); Cholesterol 150 mg/dL (<200); Estimated Glomerular Filt Rate > 60; Glucose Fasting 150 mg/dL (60-99); HDL Cholesterol 39 mg/dL (>40); LDL Cholesterol Calculated 79 mg/dL (<100); Sodium 142 mmol/L (135-145); Total Protein 7.3 g/dL (6.5-8.0); Triglycerides 163 mg/dL (<150)
[2024-01-10 13:51] LABS: TSH reflex Free T4 1.87 uIU/mL (0.32-4.0); Vitamin D 25-OH Total 41.3 ng/mL (>30)
[2024-01-10 14:18] LABS: Creatinine Urine 88.93 mg/dL; Microalbum/Creatinine Ratio Ur 6.7 ug/mg cr (<30)
== END 2024-01-10 10:47 | disposition home or self-care (01) ==
LOC: HO.LAB 10:46
PROVIDERS: PCP Internal Medicine; Visit Provider Internal Medicine
DX: E55.9 Vitamin D deficiency, unspecified (principal); E11.9 Type 2 diabetes mellitus without complications; E78.00 Pure hypercholesterolemia, unspecified; D64.9 Anemia, unspecified
CPT/HCPCS: 36415; 80053; 80061; 81001; 82043; 82306; 82570; 83036; 84443; 85025

== ENCOUNTER 2024-03-04 15:25 | Outpatient (AMB) | payer OTHER, SELFPAY ==
[2024-03-04 15:27] VITALS: BP 102/84; PULSE 92; O2SAT 96; BMI 29.4
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
== END 2024-03-04 15:59 | disposition home or self-care (01) ==
PROVIDERS: PCP Internal Medicine; Visit Provider Internal Medicine
DX: E11.9 Type 2 diabetes mellitus without complications (principal); E78.5 Hyperlipidemia, unspecified; R79.89 Other specified abnormal findings of blood chemistry; M25.531 Pain in right wrist; M51.36 Other intervertebral disc degeneration, lumbar region; K21.9 Gastro-esophageal reflux disease without esophagitis; G47.62 Sleep related leg cramps; N52.9 Male erectile dysfunction, unspecified; E66.3 Overweight

== ENCOUNTER → 2024-03-04 15:25 | Outpatient (BNVA) | payer OTHER, SELFPAY | PROVIDERS: PCP Internal Medicine; Visit Provider Internal Medicine | DX: E11.9 Type 2 diabetes mellitus without complications (principal); E78.5 Hyperlipidemia, unspecified; R79.89 Other specified abnormal findings of blood chemistry; M25.531 Pain in right wrist; M51.36 Other intervertebral disc degeneration, lumbar region; K21.9 Gastro-esophageal reflux disease without esophagitis; G47.62 Sleep related leg cramps; N52.9 Male erectile dysfunction, unspecified; E66.3 Overweight; Z79.84 Long term (current) use of oral hypoglycemic drugs; Z79.85 Long-term (current) use of injectable non-insulin antidiabetic drugs; Z79.891 Long term (current) use of opiate analgesic; Z79.899 Other long term (current) drug therapy | CPT/HCPCS: 99212 ==

== ENCOUNTER 2024-05-28 09:53 | Outpatient (REF) | payer OTHER, SELFPAY ==
[2024-05-28 10:08] LABS: MANUAL DIFF FLAG NO
[2024-05-28 11:16] LABS: Appearance Urine Clear; Color Urine Yellow; Glucose Urine UA >=1000 mg/dL (Negative); Leukocyte Esterase Urine Negative (Negative); Nitrite Urine Negative (Negative); PH 5.5 (5.0-9.0); Specific Gravity - Urine >= 1.030 (1.005-1.025); UMIC TRIGGER UACC YES; Urine Blood Negative (Negative); Urine Ketones Trace mg/dL (Negative); Urine Protein Negative (Neg-Trace)
[2024-05-28 11:27] LABS: Bacteria Urine None Seen (None Seen); Hyaline Casts Urine 0-2 /LPF (0-2); RBC Urine 0-2 /HPF (0-2); Squamous Epithelial Cell Urine 0-2 /HPF (0-2); WBC Urine 0-5 /HPF (0-5)
[2024-05-28 11:29] LABS: Basophils Percent Auto 0.5 % (0-2); Eosinophils Absolute Auto 0.2 X10*3/uL (0.0-0.4); Eosinophils Percent Auto 2.2 % (0-4); Hematocrit 47.2 % (42.0-52.0); Hemoglobin 15.7 g/dl (14.0-18.0); Imm Gran Abs Auto 0.07 X10*3/uL (0.00-0.03); Imm Gran Pct Auto 0.9 % (0.0-0.4); Lymphocytes Absolute Auto 2.4 X10*3/uL (1.2-4.9); Lymphocytes Percent Auto 31.6 % (20-40); Mean Corpuscular HGB Conc 33.3 g/dl (31.0-36.0); Mean Corpuscular Hemoglobin 29.1 pg (27.0-33.0); Mean Corpuscular Volume 87.4 fL (80.0-98.0); Mean Platelet Volume 11.7 fL (9.4-12.4); Monocytes Absolute Auto 0.6 X10*3/uL (0.1-1.2); Monocytes Percent Auto 7.5 % (2-11); Neutrophils Absolute Auto 4.3 x10*3/uL (2.0-8.3); Neutrophils Percent Auto 57.3 % (45-73); Platelet Count 192 X10*3/uL (160-400); Red Cell Distribution Width 13.2 % (11.0-16.0); White Blood Count 7.4 X10*3/uL (4.8-10.8)
[2024-05-28 11:43] LABS: Estimated Average Glucose 177 mg/dL; Hemoglobin A1C 242.4609 umol/L; Hemoglobin A1c % 7.8 % (<6.0); Total Hemoglobin (HGBA1C) 3928.0183 umol/L
[2024-05-28 11:49] LABS: Creatinine Urine 95.91 mg/dL; Microalbum/Creatinine Ratio Ur 8.3 ug/mg cr (<30)
[2024-05-28 12:00] LABS: Alanine Aminotransferase 45 U/L (0-40); Albumin Level 4.3 g/dL (3.5-5.0); Alkaline Phosphatase 78 U/L (39-117); Anion Gap 16 (12-20); Aspartate Amino Transferase 26 U/L (5-37); Bilirubin Total 0.5 mg/dL (0.0-1.0); Blood Urea Nitrogen 12 mg/dL (9-16); Calcium 9.1 mg/dL (8.4-10.2); Carbon Dioxide 29 mmol/L (22-29); Chloride 105 mmol/L (96-108); Cholesterol 146 mg/dL (<200); Estimated Glomerular Filt Rate > 60; Glucose Fasting 144 mg/dL (60-99); HDL Cholesterol 39 mg/dL (>40); LDL Cholesterol Calculated 80 mg/dL (<100); Potassium 4.1 mmol/L (3.3-5.1); Sodium 146 mmol/L (135-145); Total Protein 7.4 g/dL (6.5-8.0); Triglycerides 135 mg/dL (<150)
[2024-05-28 12:21] LABS: TSH reflex Free T4 1.64 uIU/mL (0.32-4.0); Vitamin D 25-OH Total 43.6 ng/mL (>30)
== END 2024-05-28 09:54 | disposition home or self-care (01) ==
LOC: HO.LAB 09:53
PROVIDERS: PCP Internal Medicine; Visit Provider Internal Medicine
DX: D64.9 Anemia, unspecified (principal); E78.00 Pure hypercholesterolemia, unspecified; E11.9 Type 2 diabetes mellitus without complications; E55.9 Vitamin D deficiency, unspecified; R30.0 Dysuria
CPT/HCPCS: 36415; 80053; 80061; 81001; 82043; 82306; 82570; 83036; 84443; 85025

== ENCOUNTER 2024-06-03 14:27 | Outpatient (AMB) | payer OTHER, SELFPAY ==
[2024-06-03 14:29] VITALS: BP 110/76; PULSE 95; O2SAT 97; BMI 29.4
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
== END 2024-06-03 15:20 | disposition home or self-care (01) ==
PROVIDERS: PCP Internal Medicine; Visit Provider Internal Medicine
DX: E11.9 Type 2 diabetes mellitus without complications (principal); E78.5 Hyperlipidemia, unspecified; R79.89 Other specified abnormal findings of blood chemistry; M25.531 Pain in right wrist; M51.360 Other intervertebral disc degeneration, lumbar region with discogenic back pain only; K21.9 Gastro-esophageal reflux disease without esophagitis; G47.62 Sleep related leg cramps; N52.9 Male erectile dysfunction, unspecified; E66.3 Overweight

== ENCOUNTER → 2024-06-03 14:27 | Outpatient (BNVA) | payer OTHER, SELFPAY | PROVIDERS: PCP Internal Medicine; Visit Provider Internal Medicine | DX: E11.9 Type 2 diabetes mellitus without complications (principal); E78.5 Hyperlipidemia, unspecified; R79.89 Other specified abnormal findings of blood chemistry; M25.531 Pain in right wrist; K21.9 Gastro-esophageal reflux disease without esophagitis; G47.62 Sleep related leg cramps; N52.9 Male erectile dysfunction, unspecified; E66.3 Overweight; Z68.29 Body mass index [BMI] 29.0-29.9, adult; Z79.84 Long term (current) use of oral hypoglycemic drugs; Z79.891 Long term (current) use of opiate analgesic; Z79.899 Other long term (current) drug therapy | CPT/HCPCS: 96127 ==

== ENCOUNTER 2024-09-04 10:03 | Outpatient (REF) | payer OTHER, SELFPAY ==
[2024-09-04 10:25] LABS: MANUAL DIFF FLAG NO
[2024-09-04 11:06] LABS: Basophils Percent Auto 0.4 % (0-2); Eosinophils Absolute Auto 0.1 X10*3/uL (0.0-0.4); Eosinophils Percent Auto 1.3 % (0-4); Hematocrit 46.2 % (42.0-52.0); Hemoglobin 15.6 g/dl (14.0-18.0); Imm Gran Abs Auto 0.05 X10*3/uL (0.00-0.03); Imm Gran Pct Auto 0.7 % (0.0-0.4); Lymphocytes Absolute Auto 2.4 X10*3/uL (1.2-4.9); Lymphocytes Percent Auto 35.1 % (20-40); Mean Corpuscular HGB Conc 33.8 g/dl (31.0-36.0); Mean Corpuscular Hemoglobin 29.4 pg (27.0-33.0); Mean Platelet Volume 11.6 fL (9.4-12.4); Monocytes Absolute Auto 0.5 X10*3/uL (0.1-1.2); Neutrophils Absolute Auto 3.7 x10*3/uL (2.0-8.3); Neutrophils Percent Auto 54.5 % (45-73); Platelet Count 165 X10*3/uL (160-400); Red Blood Count 5.31 X10*6/uL (4.60-5.80); Red Cell Distribution Width 13.2 % (11.0-16.0); White Blood Count 6.8 X10*3/uL (4.8-10.8)
[2024-09-04 11:11] LABS: Estimated Average Glucose 177 mg/dL; Hemoglobin A1c % 7.8 % (<6.0); Total Hemoglobin (HGBA1C) 4003.6884 umol/L
[2024-09-04 11:48] LABS: Appearance Urine Clear; Color Urine Dark Yellow; Glucose Urine UA >=1000 mg/dL (Negative); Leukocyte Esterase Urine Negative (Negative); Nitrite Urine Negative (Negative); Specific Gravity - Urine >= 1.030 (1.005-1.025); UMIC TRIGGER UACC YES; Urine Blood Negative (Negative); Urine Ketones Trace mg/dL (Negative); Urine Protein Negative (Neg-Trace)
[2024-09-04 11:48] LABS: Alanine Aminotransferase 50 U/L (0-40); Albumin Level 4.4 g/dL (3.5-5.0); Alkaline Phosphatase 102 U/L (39-117); Anion Gap 10 (12-20); Aspartate Amino Transferase 28 U/L (5-37); Bilirubin Total 0.7 mg/dL (0.0-1.0); Blood Urea Nitrogen 18 mg/dL (9-16); Calcium 9.5 mg/dL (8.4-10.2); Carbon Dioxide 28 mmol/L (22-29); Chloride 106 mmol/L (96-108); Cholesterol 142 mg/dL (<200); Estimated Glomerular Filt Rate > 60; Glucose Fasting 174 mg/dL (60-99); HDL Cholesterol 37 mg/dL (>40); LDL Cholesterol Calculated 77 mg/dL (<100); Potassium 4.3 mmol/L (3.3-5.1); Sodium 140 mmol/L (135-145); Total Protein 7.9 g/dL (6.5-8.0); Triglycerides 140 mg/dL (<150)
[2024-09-04 11:53] LABS: Bacteria Urine None Seen (None Seen); Hyaline Casts Urine 0-2 /LPF (0-2); RBC Urine 0-2 /HPF (0-2); Squamous Epithelial Cell Urine 0-2 /HPF (0-2); WBC Urine 0-5 /HPF (0-5)
[2024-09-04 12:04] LABS: TSH reflex Free T4 1.81 uIU/mL (0.32-4.0); Vitamin D 25-OH Total 51.8 ng/mL (>30)
[2024-09-04 12:09] LABS: Creatinine Urine 184.79 mg/dL
[2024-09-04 12:14] LABS: Folate 15.2 ng/mL (> or = 4.0); Vitamin B12 956 pg/mL (200-900)
== END 2024-09-04 10:04 | disposition home or self-care (01) ==
LOC: HO.LAB 10:03
PROVIDERS: PCP Internal Medicine; Visit Provider Internal Medicine
DX: E11.9 Type 2 diabetes mellitus without complications (principal); E78.00 Pure hypercholesterolemia, unspecified; E53.8 Deficiency of other specified B group vitamins; E55.9 Vitamin D deficiency, unspecified; D64.9 Anemia, unspecified; R30.0 Dysuria
CPT/HCPCS: 36415; 80053; 80061; 81001; 82043; 82306; 82570; 82607; 82746; 83036; 84443; 85025

== ENCOUNTER 2024-09-09 14:28 | Outpatient (AMB) | payer OTHER, SELFPAY ==
[2024-09-09 14:35] VITALS: BP 122/84; PULSE 90; O2SAT 97; BMI 29.3
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
== END 2024-09-09 15:42 | disposition home or self-care (01) ==
LOC: HO.HMCH 14:28
PROVIDERS: PCP Internal Medicine; Visit Provider Internal Medicine
DX: E11.9 Type 2 diabetes mellitus without complications (principal); E78.5 Hyperlipidemia, unspecified; R79.89 Other specified abnormal findings of blood chemistry; M25.531 Pain in right wrist; M51.360 Other intervertebral disc degeneration, lumbar region with discogenic back pain only; K21.9 Gastro-esophageal reflux disease without esophagitis; G47.62 Sleep related leg cramps; M25.562 Pain in left knee; M25.571 Pain in right ankle and joints of right foot; N52.9 Male erectile dysfunction, unspecified; E66.3 Overweight

== ENCOUNTER → 2024-09-09 14:28 | Outpatient (BNVA) | payer OTHER, SELFPAY | PROVIDERS: PCP Internal Medicine; Visit Provider Internal Medicine | DX: E11.9 Type 2 diabetes mellitus without complications (principal); E78.5 Hyperlipidemia, unspecified; R79.89 Other specified abnormal findings of blood chemistry; M25.531 Pain in right wrist; M51.360 Other intervertebral disc degeneration, lumbar region with discogenic back pain only; K21.9 Gastro-esophageal reflux disease without esophagitis; G47.62 Sleep related leg cramps; M25.562 Pain in left knee; M25.571 Pain in right ankle and joints of right foot; N52.9 Male erectile dysfunction, unspecified; E66.3 Overweight; Z68.29 Body mass index [BMI] 29.0-29.9, adult; Z79.84 Long term (current) use of oral hypoglycemic drugs; Z79.891 Long term (current) use of opiate analgesic; Z79.899 Other long term (current) drug therapy | CPT/HCPCS: 96127 ==

== ENCOUNTER 2024-10-23 22:45 | Emergency (ER) | payer OTHER, SELFPAY ==
--- NOTE | ~2024-10-23 | XR_ITS ---
CLINICAL HISTORY: Hx of back surg,, acute worsening pain 3 views lumbar spine Comparison: CR/SR - XR LUMBAR SPINE 4V MIN - 04/24/23 13:01 EST Findings: Postsurgical changes of posterior fixation at L5-S1 by means of bilateral rods and pedicle screws with interbody device. No abnormal lucency surrounding the hardware. Normal lumbar vertebral body height and alignment. No acute fracture. No significant degenerative changes from T12-L1 through L4-L5. Mild degenerative changes at L5-S1. Sacroiliac joint spaces maintained. IMPRESSION: No acute findings. This document has been electronically signed by: Johnathan Schultz MD on 10/24/2024 01:11:35
[2024-10-23 22:47] VITALS: BP 131/92; PULSE 88; RESP 18; TEMP 36.6; O2SAT 99; BMI 28.2
--- NOTE | 2024-10-23 23:31 | PC.NURSE ---
RN to bedside to answer pt's inquiry made with another RN. Upon arrival to bedside the pt was noted to be seated on the edge of the bed asking when he would be seen. This RN attempted to educate the patient on flow and that there have been people in the department for a longer period of time as he has been in the department for less than 45 minutes at the time. This RN specifically stated The providers see patients in the order that they arrive unless there is something more critical that arises , the pt replied I have hardware and pain in my back, guess no one cares and it's not important. if you aren't going to help me then i'm just going to leave, I'm not going to sit here in pain . Pt remains in the bed awaiting primary provider tara at this time
[2024-10-24 00:02] VITALS: BP 142/86; PULSE 94; RESP 22; TEMP 36.7; O2SAT 99
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
[2024-10-24] MEDS: Ketorolac Tromethamine 30 MG/ML VIAL IM (00:44)
[2024-10-24] MEDS: HYDROmorphone HCl 1 MG/ML SYRINGE IM (00:44)
[2024-10-24 02:26] VITALS: BP 142/86; PULSE 94; RESP 22; TEMP 36.7; O2SAT 99
== END 2024-10-24 02:27 | disposition home or self-care (01) ==
PROVIDERS: Emergency Provider Emergency Medicine; PCP Internal Medicine
DX: M54.50 Low back pain, unspecified (principal); M79.605 Pain in left leg; M79.604 Pain in right leg; E11.40 Type 2 diabetes mellitus with diabetic neuropathy, unspecified; Z79.84 Long term (current) use of oral hypoglycemic drugs; Z87.891 Personal history of nicotine dependence; Z79.899 Other long term (current) drug therapy
CPT/HCPCS: 72100; 96372; 99283; 99284; J1171; J1885

== ENCOUNTER → 2024-10-24 00:21 | Outpatient (BNV) | payer OTHER, SELFPAY | PROVIDERS: Emergency Provider Emergency Medicine; PCP Internal Medicine; Visit Provider Radiology Diagnostic Radiology | DX: M54.50 Low back pain, unspecified (principal) | CPT/HCPCS: 72100 ==

== ENCOUNTER 2024-10-29 14:30 | Outpatient (AMB) | payer OTHER, SELFPAY ==
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
[2024-10-29 14:33] VITALS: BP 112/82; PULSE 92; RESP 16; TEMP 37; O2SAT 95; BMI 29.0
--- OUTSIDE RECORDS SUMMARY | 2024-10-29 15:38 | XMS_ITS | Clinical Summary ---
Author Organization [address] [facility] Address [address] [place] [address] Phone Care Team Providers Care Automatic Mold Sander Name Role Phone Aki Ritchie MD Primary Care Provider + [phone] Social History Tobacco Use Types Packs/Day Years Used Date Smoking Tobacco: Never Assessed Sex and Gender Information Value Date Recorded Sex Assigned at Not on file Legal Sex Male 1:47 AM EST Gender Identity Not on file Sexual Orientation Not on file Plan of Treatment Upcoming Encounters Date Type Department Care Team (Late st Contact Info) Description 11/01/2024 2:30 PM EDT Consult Neurosurgery [facility] [address] [id number] Leighton Reina PA [address] [place] [address] [phone] Health Maintenance Due Date Last Done Comments DTaP,Tdap,and Td Vaccines (1 - Tdap) 1992 Hepatitis B Vaccines (1 of 3 - 19+ 3-dose series) 1992 Pneumococcal Vaccine: 50+ Ye ars (1 of 1 - PCV) 08/22/2023 Zoster Vaccines (1 of 2) 08/22/2023 COVID-19 Vaccine ( - 2023-2 5 season) 2024 Cholesterol Screening (Lipid Panel) 10/28/2024 Colorectal Cancer Screening: Colonoscopy 10/28/2024 Depression Screening 10/28/2024 HIV Screening 10/28/2024 Hepatitis C Screening 10/28/2024 Medicare Annual Wellness Visit 10/28/2024 Social Influencers of Health Screening 10/28/2024 Influenza Vaccine (Season Ended) 2025 HIB Vaccines Aged Out No longer eligi ble based on patient's age to complete this topic HPV Vaccines Aged Out No longer eligi ble based on patient's age to complete this topic Hepatitis A Vaccines Aged Out No long er eligible based on patient's age to complete this topic IPV Vaccines Aged Out No longer eligi ble based on patient's age to complete this topic MMR Vaccines Aged Out No longer eligi ble based on patient's age to complete this topic Meningococcal ACWY Vaccine Aged Out N o longer eligible based on patient's age to complete this topic Meningococcal B Vaccine Aged Out No l onger eligible based on patient's age to complete this topic Pneumococcal Vaccine: Pediat rics (0 to 5 Years) and At-Risk Patients (6 to 64 Years) Aged Out No longer eligible b ased on patient's age to complete this topic RSV Immunization Patients Un kyra 20 months Aged Out No longer eligible b ased on patient's age to complete this topic Varicella Vaccines Aged Out No longer eligible based on patient's age to complete this topic Insurance [employer] MEDICARE Member Subscriber Plan / Payer (Ef fective 2018-Present) Name:Edgar Cole Relation to Subscriber:Self Name:Edgar Cole Payer ID:[id number] Group ID:[id number] Type:Not on file Address: [place] [address] [place] [id number] Care Teams Automatic Mold Sander Relationship Specialty Start Date End Date Aki Ritchie MD [address] [place] [address] [facility] FIDEL Hoffmann PCP - General Internal Medicine 11/17/16
== END 2024-10-29 15:19 | disposition home or self-care (01) ==
LOC: HO.HMCH 14:31
PROVIDERS: PCP Internal Medicine
DX: G89.29 Other chronic pain (principal); M54.41 Lumbago with sciatica, right side

== ENCOUNTER → 2024-10-29 14:30 | Outpatient (BNVA) | payer OTHER, SELFPAY | PROVIDERS: PCP Internal Medicine | DX: M54.41 Lumbago with sciatica, right side (principal); G89.29 Other chronic pain | CPT/HCPCS: 96127; 99212 ==

== ENCOUNTER 2024-11-12 17:20 | Emergency (ER) | payer OTHER, SELFPAY ==
--- NOTE | ~2024-11-12 | XR_ITS ---
CLINICAL HISTORY: fall pain 5 view, chest and right ribs Comparison: None Findings: No fractures or dislocations. The visualized lungs are normal. Vertically IMPRESSION: No acute rib fractures. This document has been electronically signed by: Hedy See MD on 11/12/2024 19:09:22
[2024-11-12 17:47] VITALS: BP 108/74; PULSE 102; RESP 16; TEMP 36.2; O2SAT 98; BMI 30.2
--- OUTSIDE RECORDS SUMMARY | 2024-11-12 21:43 | XMS_ITS | Clinical Summary ---
Author Organization 175 [facility] Address [address] [place] [address] Phone Care Team Providers Care Refrigerator Room Clerk Name Role Phone Aki Ritchie MD Primary Care Provider + [phone] Allergies Active Allergy Reactions Criticality Noted Date Comments Cyclobenzaprine Other High 10/31/2024 confusion Medications acetaminophen (TYLENOL) 500 mg tablet TAKE 2 TABLETS BY MOUTH EVERY 8 HOURS NEEDED FOR FEVER OR PAIN 5 Active Jardiance 25 mg tablet Take 1 tablet (25 mg total) by mouth 1 (one) time each day in the morning. 5 Active ibuprofen (ADVIL,MOTRIN) 800 mg tablet Take 1 tablet (800 mg total) by mouth every 8 (eight) hours if needed. for pain 5 Active oxyCODONE (ROXICODONE) 10 mg immediate release tablet 5 Active pantoprazole (PROTONIX) 40 mg EC tablet Take 1 tablet (40 mg total) by mouth 1 (one) time each day. 5 Active Ozempic 2 mg/dose (8 mg/3 mL) injection pen ADMINISTER 2 MG UNDER THE SKIN EVERY WEEK FOR 4 WEEKS 5 Active metFORMIN (GLUCOPHAGE) 1,000 mg tablet Take 1 tablet (1,000 mg total) by mouth 2 (two) times a day. 5 Active Trulicity 3 mg/0.5 mL pen injector injection ADMINISTER 3 MG UNDER THE SKIN EVERY WEEK FOR 4 WEEKS 07/24/202 4 Active Active Problems Problem Noted Date Diagnosed Date Acute back pain with sciatica 11/01/2024 Assessment & Plan (11/01/2024 5:10 PM EDT): Mr. Barnett describes right sided low back pain with radiation down the backs of both legs starting in October 20. It lasted several days. At this point it has mostly resolved. Of note he is status post L5-S1 posterior lumbar interbody fusion with pedicle screw fixation performed by Dr. Nazario about 10 years ago. Examination, he is neurologically intact with good strength. Recent x-rays of the lumbar spine at [facility] (Former[facility]) show evidence of his prior L5-S1 posterior lumbar interbody fusion with pedicle screw fixation. On close inspection, it appears that one of his S1 screws may be fractured. I reviewed the films with Dr. Nazario who agreed. I am going to send the patient for some plain x-rays at [facility] with flexion, extension, and oblique views to see if we can see a fracture. If those are clear, we will begin physical therapy. If he still has pain after his therapy, we can consider an MRI of the lumbar spine at that time. Encounters Date Type Department Care Team Description 11/07/2024 Telephone Neurosurgery [facility] [address] [phone] Leighton Reina PA 11/03/2024 5:20 PM EDT - 11/03/2024 11:59 PM EDT Hospital Encounter [facility] Xray [address] [place] [id number] Acute back pain with sciatica, unspecified laterality Discharge Disposition: Home or Self Care 11/01/2024 2:30 PM EDT Consult Neurosurgery [facility] [address] [phone] Leighton Reina PA Acute back pain with sciatica, unspecified laterality from Last 3 Months Immunizations Name Administration Dates Next Due Hepatitis A Adult (Havrix; Vaqta) 19yo and older 09/21/2012 Hepatitis B (Gamclao-E-Tdugj , Recombivax HB-Adult) 19yo and older 09/21/2012 Influenza Split 06/06/2012 Pneumococcal polysaccharide 23 valent (Pneumovax 23) 2yo and older 06/06/2012 Td Tetanus diptheria (Tdvax) 7yo and older 11/01 Tdap Tetanus diptheria acell ular pertussis (Boostrix; Adacel) 7yo and older 04/08/2015 Surgical History Surgery Date Site/Laterality Comments COLONOSCOPY OTHER SURGICAL HISTORY S/P Lumbar Spine Surgery for decompression of spinal cord by - 7-8yrs ago OTHER SURGICAL HISTORY N/A H/O Left inguinal hernia repair 03/2017 Medical History Medical History Date Comments Overweight Cervical myofascial strain Acute lumbar myofascial strain Erectile dysfunction Osteoarthritis of right shoulder Nocturnal leg cramps GERD (gastroesophageal reflux disease) Elevated LFTs Lumbar degenerative disc disease Dyslipidemia Diabetes mellitus (CMS/HCC V24, CMS/HCC V28) Family History Medical History Relation Name Comments ALS Father Stroke Mother Relation Name Status Comments Father Mother Social History Tobacco Use Types Packs/Day Years Used Date Smoking Tobacco: Former Cigarettes Smokeless Tobacco: Never Sex and Gender Information Value Date Recorded Sex Assigned at Not on file Legal Sex Male 1:47 AM EST Gender Identity Not on file Sexual Orientation Not on file Obstetrics History Plan of Treatment Upcoming Encounters Date Type Department Care Team (Late st Contact Info) Description 11/25/2024 12:00 PM EDT Evaluation Outpatient Rehabilitation [address] [phone] Hunter Rojo, PT Health Maintenance Due Date Last Done Comments Hepatitis B Vaccines (2 of 3 - 19+ 3-dose series) 10/19/2012 09/21/2012 Pneumococcal Vaccine: 50+ Years (2 of 2 - PCV) 08/22/2023 06/06/2012 Zoster Vaccines (1 of 2) 08/22/2023 COVID-19 Vaccine ( season) 2024 01/11/2022, 04/22/2021, 10/07/2020, Additional history exists Cholesterol Screening (Lipid Panel) 10/28/2024 Colorectal Cancer Screening: Colonoscopy 10/28/2024 Depression Screening 10/28/2024 HIV Screening 10/28/2024 Hepatitis C Screening 10/28/2024 Medicare Annual Wellness Visit 10/28/2024 Social Influencers of Health Screening 10/28/2024 Influenza Vaccine (Season Ended) 2025 06/06/2012 DTaP,Tdap,and Td Vaccines (3 - Td or Tdap) 11/02/2027 11/01/2017, 04/08/2015 Pneumococcal Vaccine: Pediatrics (0 to 5 Years) and At-Risk Patients (6 to 64 Years) Aged Out 06/06/2012 No longer eligible based on patient's age to complete this topic Hepatitis A Vaccines Aged Out 09/21/2012 No long er eligible based on patient's age to complete this topic HIB Vaccines Aged Out No longer eligi [...] to complete this topic RSV Immunization Patients Under 20 months Aged Out No longer eligible based on patient's age to complete this topic Varicella Vaccines Aged Out No longer eligible based on patient's age to complete this topic Procedures Procedure Name Priority Date/Time Associated Diagnosis Comments XR LUMBAR SPINE 4+ VIEWS Routine 11/03/2024 5:40 PM EDT Acute back pain with sciatica, unspecified laterality from Last 3 Months Results * XR Lumbar Spine 4+ Views (11/03/2024 5:40 PM EDT) Anatomical Region Laterality Modality Spine, L-spine Radiographic Palmira ging 11/04/2024 7:41 AM EDT Impressions 11/04/2024 7:48 AM EDT Alignment is anatomic and there is no abnormal relative bony motion with flexion and extension. Range of motion is limited. No bony fracture is seen. The patient has undergone previous posterior fusion with placement of a disc spacer at the L5-S1 level. There is a nondisplaced fracture of one of the S1 pedicle screws; this is favored to be on the left but this is difficult to state with certainty as it is only visualized on lateral projection. Code 56813 -------- FINAL REPORT -------- Dictated By: Juanito Shay Dictated Date: 11/04/2024 07:41 ET Assigned Physician: Juanito Shay Reviewed and Electronically Signed By: Juanito Shay Signed Date: 11/04/2024 07:48 ET Workstation ID: [id number] Transcribed By: Self Edit Transcribed Date: 11/04/2024 07:41 ET Narrative 11/04/2024 7:48 AM EDT HISTORY: The patient is a 49-year-old male with low back pain. FINDINGS: Lateral views of the lumbosacral spine in neutral, flexion, and extension positions, along with AP, right and left oblique, and coned-down spot lateral views, are obtained. The study demonstrates that the patient has undergone previous posterior fusion, with placement of a disc spacer, at the L5-S1 level. The surgical hardware appears well-positioned. There is a nondisplaced fracture of one of the S1 pedicle screws; this is felt likely to be on the left but this is difficult to state with certainty as this fracture is only clearly seen on lateral projection. The alignment of the bony structures is anatomic. There is no abnormal relative bony motion with flexion and extension. Range of motion is limited. No bony fracture is seen. The remaining disc spaces are well-maintained. There is no evidence of facet joint disease. Procedure Note Juanito Shay MD - 11/04/2024 HISTORY: The patient is a 49-year-old male with low back pain. FINDINGS: Lateral views of the lumbosacral spine in neutral, flexion, andextension positions, along with AP, right and left oblique, and coned-downspot lateral views, are obtained. The study demonstrates that the patienthas undergone previous posterior fusion, with placement of a disc spacer,at the L5-S1 level. The surgical hardware appears well-positioned. Thereis a nondisplaced fracture of one of the S1 pedicle screws; this is feltlikely to be on the left but this is difficult to state with certainty asthis fracture is only clearly seen on lateral projection. The alignment ofthe bony structures is anatomic. There is no abnormal relative bony motionwith flexion and extension. Range of motion is limited. No bony fractureis seen. The remaining disc spaces are well-maintained. There is noevidence of facet joint disease. IMPRESSION: Alignment is anatomic and there is no abnormal relative bony motion withflexion and extension. Range of motion is limited. No bony fracture isseen. The patient has undergone previous posterior fusion with placementof a disc spacer at the L5-S1 level. There is a nondisplaced fracture ofone of the S1 pedicle screws; this is favored to be on the left but thisis difficult to state with certainty as it is only visualized on lateralprojection. Code 75244 -------- FINAL REPORT -------- Dictated By: Juanito Shay Dictated Date: 11/04/2024 07:41 ET Assigned Physician: Juanito Shay Reviewed and Electronically Signed By: Juanito Shay Signed Date: 11/04/2024 07:48 ET Workstation ID: [id number] Transcribed By: Self Edit Transcribed Date: 11/04/2024 07:41 ET Leighton DAMON IMG XR PROCEDURES Final Resul t from Last 3 Months [place] [address] [employer] MEDIC[employer] Member Subscriber Plan / Payer (Ef fective 2018-Present) Name:Edgar Cole Relation to Subscriber:Self Name:Edgar Cole Payer ID:[id number] Group ID:[id number] Type:Not on file Address: [place] [address] [place] [address] Care Teams Refrigerator Room Clerk Relationship Specialty Start Date End Date Aki Ritchie MD [address] [place] [address] Mildred Hoffmann [place] PCP - General Internal Medicine 11/17/16
[2024-11-12 21:45] VITALS: BP 130/89; PULSE 75; RESP 16; TEMP 36.7; O2SAT 97
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
[2024-11-12] MEDS: Ketorolac Tromethamine 15 MG/ML VIAL IM (22:40)
[2024-11-12 22:55] VITALS: BP 130/89; PULSE 75; RESP 16; TEMP 36.7; O2SAT 97
== END 2024-11-12 22:56 | disposition home or self-care (01) ==
PROVIDERS: Emergency Provider Emergency Medicine Emergency Medical Services; PCP Internal Medicine
DX: R07.89 Other chest pain (principal); R07.81 Pleurodynia
CPT/HCPCS: 71101; 96372; 99284; J1885

== ENCOUNTER → 2024-11-12 18:30 | Outpatient (BNV) | payer OTHER, SELFPAY | PROVIDERS: PCP Internal Medicine; Visit Provider Student in an Organized Health Care Education/Training Program | DX: R07.89 Other chest pain (principal) | CPT/HCPCS: 71101 ==

== ENCOUNTER 2024-12-30 10:48 | Outpatient (REF) | payer OTHER, SELFPAY ==
--- OUTSIDE RECORDS SUMMARY | 2024-12-25 15:30 | XMS_ITS | Encounter Summary ---
Author Organization [place] [address] Care Team Providers Care Counter Caser Name Role Phone Aki Ritchie MD Primary Care Provider + [phone] Reason for Visit * Consultation (Routine) - Authorized Specialty Diagnoses / Procedures Referred By Contmarycruz t Referred To Contact Physical Therapy Diagnoses Acute back pain with sciatica, unspecified laterality Leighton Reina PA [address] [place] [address] Phone: tel: fax: Referral ID Status Reason Start Date Expiration Date Visits Requested Visits Authorized [id number] Authorized Specialty Services Required 11/01/2024 11/01/2025 21 21 Encounter Details Date Type Department Care Team (Late st Contact Info) Description 12/25/2024 3:30 PM EDT Treatment Outpatient Rehabilitation - [address] [phone] Balbina Perera PTA Acute back pain with sciatica, unspecified laterality (Primary Dx) Social History Tobacco Use Types Packs/Day Years Used Date Smoking Tobacco: Former Cigarettes Smokeless Tobacco: Never Sex and Gender Information Value Date Recorded Sex Assigned at Not on file Legal Sex Male 1:47 AM EST Gender Identity Not on file Sexual Orientation Not on file documented as of this encounter Progress Notes * Balbina Perera PTA - 12/25/2024 3:30 PM EDT [facility]- Outpatient PHYSICAL THERAPY DAILY TREATMENT NOTE - OP Date: 12/25/2024 Visit Number: [id number] Patient Name: Edgar Cole : 1975 Age: 49 y.o. Gender: male Diagnosis: ICD-10-CM ICD-9-CM 1. Acute back pain with sciatica, unspecified laterality M54.40 724.3 Date of Onset/Surgery: 10/20/2024 Referring Provider: Leighton Reina PA Insurance: Payor: [facility] / Plan: [facility] / Product Type: *No Product type* / Patient Identified by: Balbina Perera PTA Language: Speaks and understands Turkish as preferred language with no stave bolt equalizer required Medications: Current Outpatient Medications on File Prior to Visit Medication Sig Dispense Refill acetaminophen (TYLENOL) 500 mg tablet TAKE 2 TABLETS BY MOUTH EVERY 8 HOURS NEEDED FOR FEVER OR PAIN ibuprofen (ADVIL,MOTRIN) 800 mg tablet Take 1 tablet (800 mg total) by mouth every 8 (eight) hours if needed. for pain Jardiance 25 mg tablet Take 1 tablet (25 mg total) by mouth 1 (one) time each day in the morning. metFORMIN (GLUCOPHAGE) 1,000 mg tablet Take 1 tablet (1,000 mg total) by mouth 2 (two) times a day. oxyCODONE (ROXICODONE) 10 mg immediate release tablet Ozempic 2 mg/dose (8 mg/3 mL) injection pen ADMINISTER 2 MG UNDER THE SKIN EVERY WEEK FOR 4 WEEKS pantoprazole (PROTONIX) 40 mg EC tablet Take 1 tablet (40 mg total) by mouth 1 (one) time each day. Trulicity 3 mg/0.5 mL pen injector injection ADMINISTER 3 MG UNDER THE SKIN EVERY WEEK FOR 4 WEEKS (Patient not taking: Reported on 11/01/2024) No current facility-administered medications on file prior to visit. Allergies: is allergic to cyclobenzaprine. Precautions: None Fall risk: Yes SUBJECTIVE: Subjective Report: I feel it across my low back. Chart Reviewed: Yes Pain: 6/10 Low back. OBJECTIVE: Vitals: There were no vitals filed for this visit.; TREATMENT INTERVENTION: Manual Therapy: STM/MFR to L/S paraspinals, Glut Meds. Manual (B) Quad, HS stretching. Unloading in H/L. Therex: Nu Step L4 x 5 minutes. Cat/Camel x 10 reps. Quadriped w/ Alt Ue's x 10 reps. Seated Hip ADD w/ (B) Hip IR w/ OTB x 2 sets of 10. Standing HS stretch on 2nd step x 3 reps on each side w/ 20 sec hold. Modified bridges w/ hip add x 10 reps. Crunches in H/L w/ GTB x 2 sets of 10. Lumbar unloading in H/L. ASSESSMENT/Response to Treatment Good No LE Rad sx's. Patient Education: Education provided: None PLAN POC Development/Review: No Change in the Plan of Care; Participants: Patient Interventions Time Entry: Modalities: Therapeutic procedures: Therex: 30 Total Treatment Time: 30 Documentation completed by Balbina Perera PTA documented in this encounter Plan of Treatment Upcoming Encounters Date Type Department Care Team (Late st Contact Info) Description 12/30/2024 3:30 PM EDT Treatment Outpatient [address] [phone] Balbina Perera PTA 01/02/2025 3:30 PM EDT Treatment Outpatient [address] [phone] Hunter Rojo, PT documented as of this encounter Goals Goal Patient Goal Type Associated Problems Recent Progress Patient-Stated? Author STG's General Yes Hunter Rojo, PT Note: Pt will demonstrate lower abd/TA strength of 4-//5 or better to increase tolerance to household activities. Pt demonstrate lx flexion to 40 degrees or better for ADL's Pt is Independent and compliant with initial HEP. LTG's General Yes Hunter Rojo, PT Note: Pt will demonstrate lower abd/TA strength of 4/5 or better to increase tolerance to household activities. Pt demonstrate lx flexion to 50 degrees or better for ADL's Pt will be Independent and compliant with final HEP. documented as of this encounter Visit Diagnoses Diagnosis Acute back pain with sciatica, unspecified laterality- Primary documented in this encounter Care Teams Counter Caser Relationship Specialty Start Date End Date Aki Ritchie MD [address] [place] [address] Dr Mildred [address] F[address] Hoffmann PCP - General Internal Medicine 11/17/16 documented as of this encounter
[2024-12-30 11:02] LABS: MANUAL DIFF FLAG NO
[2024-12-30 11:52] LABS: Appearance Urine Clear; Glucose Urine UA >=1000 mg/dL (Negative); PH 5.5 (5.0-9.0); Specific Gravity - Urine >= 1.030 (1.005-1.025); UMIC TRIGGER UACC YES
[2024-12-30 11:59] LABS: Hematocrit 45.7 % (42.0-52.0); Hemoglobin 15.3 g/dl (14.0-18.0); Imm Gran Abs Auto 0.12 X10*3/uL (0.00-0.03); Imm Gran Pct Auto 1.5 % (0.0-0.4); Lymphocytes Absolute Auto 2.5 X10*3/uL (1.2-4.9); Mean Corpuscular HGB Conc 33.5 g/dl (31.0-36.0); Mean Corpuscular Hemoglobin 29.0 pg (27.0-33.0); Mean Corpuscular Volume 86.6 fL (80.0-98.0); NRBC Abs Auto 0.000 X10*3/uL (0.0-0.012); NRBC Pct Auto 0.0 /100WBC (0.0-0.2); Platelet Count 164 X10*3/uL (160-400); Red Blood Count 5.28 X10*6/uL (4.60-5.80); White Blood Count 7.8 X10*3/uL (4.8-10.8)
[2024-12-30 12:24] LABS: Microalbum/Creatinine Ratio Ur 6.4 ug/mg cr (<30)
[2024-12-30 12:40] LABS: Hemoglobin A1C 258.1180 umol/L; Total Hemoglobin (HGBA1C) 4032.6076 umol/L
[2024-12-30 12:45] LABS: Alanine Aminotransferase 52 U/L (0-40); Albumin Level 4.6 g/dL (3.5-5.0); Alkaline Phosphatase 79 U/L (39-117); Anion Gap 12 (12-20); Aspartate Amino Transferase 28 U/L (5-37); Blood Urea Nitrogen 14 mg/dL (9-16); Calcium 9.3 mg/dL (8.4-10.2); Carbon Dioxide 28 mmol/L (22-29); Chloride 107 mmol/L (96-108); Cholesterol 156 mg/dL (<200); Estimated Glomerular Filt Rate > 60; HDL Cholesterol 40 mg/dL (>40); Potassium 4.0 mmol/L (3.3-5.1); Sodium 143 mmol/L (135-145); Total Protein 7.5 g/dL (6.5-8.0); Triglycerides 135 mg/dL (<150)
== END 2024-12-30 10:49 | disposition home or self-care (01) ==
LOC: HO.LAB 10:48
PROVIDERS: PCP Internal Medicine; Visit Provider Internal Medicine
DX: E11.9 Type 2 diabetes mellitus without complications (principal); E78.00 Pure hypercholesterolemia, unspecified; E55.9 Vitamin D deficiency, unspecified; D64.9 Anemia, unspecified; R30.0 Dysuria
CPT/HCPCS: 36415; 80053; 80061; 81001; 82043; 82306; 82570; 83036; 84443; 85025

== ENCOUNTER 2024-12-31 12:22 | Outpatient (AMB) | payer OTHER, SELFPAY ==
--- OUTSIDE RECORDS SUMMARY | 2024-12-30 15:30 | XMS_ITS | Encounter Summary ---
Author Organization [place] [address] Care Team Providers Care City Planning Aide Name Role Phone Aki Ritchie MD Primary Care Provider + [phone] Reason for Visit * Consultation (Routine) - Authorized Specialty Diagnoses / Procedures Referred By Contmarycruz t Referred To Contact Physical Therapy Diagnoses Acute back pain with sciatica, unspecified laterality Leighton Reina PA [address] [place] [id number] Phone: tel: fax: Referral ID Status Reason Start Date Expiration Date Visits Requested Visits Authorized [id number] Authorized Specialty Services Required 11/01/2024 11/01/2025 21 21 Encounter Details Date Type Department Care Team (Late st Contact Info) Description 12/30/2024 3:30 PM EDT Treatment Outpatient Rehabilitation - [address] [phone] Balbina Perera PTA Acute back pain with [...] Progress Notes * Balbina Perera PTA - 12/30/2024 3:30 PM EDT [facility]- Outpatient PHYSICAL THERAPY DAILY TREATMENT NOTE - OP Date: 12/30/2024 Visit Number: 7 Patient Name: Edgar Cole : 1975 Age: 49 y.o. Gender: male Diagnosis: ICD-10-CM ICD-9-CM 1. 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 It's moderate now. Chart Reviewed: Yes Pain: 6/10 Low back. OBJECTIVE: Vitals: There were no vitals filed for this visit.; TREATMENT INTERVENTION: Manual Therapy: STM/MFR to L/S paraspinals, Glut Meds. Manual (B) Quad, HS stretching. Unloading in H/L. Therex: Nu Step L4 x 5 minutes. Cat/Camel x 10 reps. Supine HS stretch w/ strap x 3 reps w/ 20 sec hold on each side. Standing Paloff Press outs w/ Green cord x 2 sets of 10. Modified bridges w/ hip add x 10 reps. Lumbar unloading in H/L. ASSESSMENT/Response to Treatment Good No LE Rad sx's. Slight decrease in Low back pain. Patient Education: Education provided: None PLAN POC Development/Review: No Change in the Plan of Care; Participants: Patient Interventions Time Entry: Modalities: Therapeutic procedures: Therex: 30 Total Treatment Time: 30 Documentation completed by Balbina Perera PTA documented in this encounter Plan of Treatment Upcoming Encounters Date Type Department Care Team (Late st Contact Info) Description 01/02/2025 3:30 PM EDT Treatment Outpatient [address] [phone] Hunter Rojo PT documented as of this encounter Goals Goal Patient Goal Type Associated Problems Recent Progress Patient-Stated? Author STG's General Yes Hunter Rojo PT Note: Pt will demonstrate lower abd/TA strength of 4-//5 or better to increase tolerance to household activities. Pt demonstrate lx flexion to 40 degrees or better for ADL's Pt is Independent and compliant with initial HEP. LTG's General Yes Hunter Rojo PT Note: Pt will demonstrate lower abd/TA strength of 4/5 or better to increase tolerance to household activities. Pt demonstrate lx flexion to 50 degrees or better for ADL's Pt will be Independent and compliant with final HEP. documented as of this encounter Visit Diagnoses Diagnosis Acute back pain with sciatica, unspecified laterality- Primary documented in this encounter Care Teams City Planning Aide Relationship Specialty Start Date End Date Aki Ritchie MD [address] [place] [address] [address] [place], [place] PCP - General Internal Medicine 11/17/16 documented as of this encounter
[2024-12-31 12:35] VITALS: BP 120/84; PULSE 86; O2SAT 97
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
== END 2024-12-31 13:05 | disposition home or self-care (01) ==
LOC: HO.HMCH 12:23
PROVIDERS: PCP Internal Medicine; Visit Provider Internal Medicine
DX: E11.9 Type 2 diabetes mellitus without complications (principal); E78.5 Hyperlipidemia, unspecified; R79.89 Other specified abnormal findings of blood chemistry; M25.531 Pain in right wrist; M51.360 Other intervertebral disc degeneration, lumbar region with discogenic back pain only; K21.9 Gastro-esophageal reflux disease without esophagitis; G47.62 Sleep related leg cramps; N52.9 Male erectile dysfunction, unspecified; E66.3 Overweight

== ENCOUNTER → 2024-12-31 12:22 | Outpatient (BNVA) | payer OTHER, SELFPAY | PROVIDERS: PCP Internal Medicine; Visit Provider Internal Medicine | DX: E11.9 Type 2 diabetes mellitus without complications (principal); E78.5 Hyperlipidemia, unspecified; K21.9 Gastro-esophageal reflux disease without esophagitis; R79.89 Other specified abnormal findings of blood chemistry; M25.531 Pain in right wrist; M51.360 Other intervertebral disc degeneration, lumbar region with discogenic back pain only; G47.62 Sleep related leg cramps; N52.9 Male erectile dysfunction, unspecified; E66.3 Overweight; Z68.30 Body mass index [BMI] 30.0-30.9, adult | CPT/HCPCS: 96127 ==

== ENCOUNTER 2025-01-12 01:29 | Emergency (ER) | payer OTHER, SELFPAY ==
[2025-01-12 01:43] VITALS: BMI 29.0
[2025-01-12 01:48] VITALS: BP 130/77; PULSE 88; RESP 18; TEMP 36.5; O2SAT 98
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
--- OUTSIDE RECORDS SUMMARY | 2025-01-12 02:59 | XMS_ITS | Clinical Summary ---
Author Organization [facility] Address [address] [place] [id number] Phone Care Team Providers Care Supervisor Contact And Service Clerks Name Role Phone Aki Ritchie MD Primary Care Provider [phone] Allergies No known active allergies Medications cyclobenzaprine (FLEXERIL) 10 MG tablet Take 1 tablet (10 mg total) by mouth 3 (three) times a day as needed. 20 tablet 11/24/2023 Active Social History Tobacco Use Types Packs/Day Years Used Date Smoking Tobacco: Never Assessed Education Answer Date Recorded Are you interested in more education? Not on garcia e 11/24/2023 Are you concerned about learning? Not on file 11/24/2023 No 11/24/2023 No 11/24/2023 Digital Access Answer Date Recorded No 11/24/2023 No 11/24/2023 Reliable internet access at home? Not on file 11/24/2023 Device with a working camera? Not on file Intimate Partner Violence Answer Date R ecorded Are you denied basic needs s uch as food, clothing, or medical care? No 11/24/2023 In the past 12 months have y ou been in a relationship with a person who hurts, threatens, or tries to control you? No 11/24/2023 Are you denied basic needs s uch as food, clothing, or medical care? No 11/24/2023 In the past 12 months have y ou been in a relationship with a person who hurts, threatens, or tries to control you? No 11/24/2023 Sex and Gender Information Value Date Recorded Sex Assigned at Male 11/24/2023 5:55 PM EDT Legal Sex Male 5:45 PM EDT Gender Identity Male 11/24/2023 5:55 PM EDT Sexual Orientation Not on file Last Filed Vital Signs Vital Sign Reading Time Taken Comments Blood Pressure 122/80 11/24/2023 9:18 PM EDT Pulse 90 11/24/2023 9:18 PM EDT Temperature 36.2 C (97.2 F) 11/24/2023 9:18 PM EDT Respiratory Rate 18 11/24/2023 9:18 PM EDT Oxygen Saturation 97% 11/24/2023 9:18 PM EDT Inhaled Oxygen Concentration - - Weight 81.6 kg (180 lb) 11/24/2023 5:54 PM EDT Height 167.6 cm (5' 6 ) 11/24/2023 5:54 PM EDT Body Mass Index 29.05 11/24/2023 5:54 PM EDT Plan of Treatment Health Maintenance Due Date Last Done Comments Adult Td,Tdap Booster 1975 LIPID PANEL 1975 DEPRESSION SCREENING 1985 SMOKING Hx and SMOKELESS TOB ACCO SCREENING 1986 HEPATITIS C SCREENING 08/22/1991 HIV ONE-TIME SCREENING (18-6 5 YEARS) 08/22/1991 SCREENING FOR DIABETES 2008 COLOGUARD 2018 COLONOSCOPY 2018 COLORECTAL CANCER SCREENING 2018 FIT TEST 2018 FOBT 2018 SIGMOIDOSCOPY 2018 VIRTUAL COLONOSCOPY 2018 PNEUMOCOCCAL VACCINES (50+ y ears) (1 of 1 - PCV) 08/22/2023 ZOSTER VACCINES (1 of 2) 08/22/2023 COVID-19 VACCINE (2023-2 5 season) 2024 HEPATITIS A VACCINES Aged Out No long er eligible based on patient's age to complete this topic HIB VACCINES Aged Out No longer eligi ble based on patient's age to complete this topic MENINGOCOCCAL VACCINES (ACWY) Aged Out No longer eligible based on patient's age to complete this topic MENINGOCOCCAL VACCINES (B) Aged Out N o longer eligible based on patient's age to complete this topic Medical Devices Not on file Insurance MEDICARE REPLACEMENT MEDICARE REPLACEMENT MEDICARE [place] [address] [place] [address] ONE CARE MEDICARE REPLACEMENT CARE MEDICARE [place] [address] [place] [address] CARE MEDICARE REPLACEMENT [facility] ONE CARE MEDICARE REPLACEMENT [facility] Care Teams Supervisor Contact And Service Clerks Relationship Specialty Start Date End Date Aki Ritchie MD [address] [place] [address] [place] [address] PCP - General Internal Medicine 11/24/23 Additional Source Comments The information contained in this document represents components of the legal health record. It is not the complete legal health record.[facility]
[2025-01-12 03:31] VITALS: BP 130/77; PULSE 88; RESP 18; TEMP 36.5; O2SAT 98
== END 2025-01-12 03:28 | disposition home or self-care (01) ==
PROVIDERS: Emergency Provider Emergency Medicine; PCP Internal Medicine
DX: L08.9 Local infection of the skin and subcutaneous tissue, unspecified (principal); L03.032 Cellulitis of left toe; R22.42 Localized swelling, mass and lump, left lower limb; E11.9 Type 2 diabetes mellitus without complications; Z79.899 Other long term (current) drug therapy; Z87.891 Personal history of nicotine dependence; Z79.4 Long term (current) use of insulin
CPT/HCPCS: 87070; 87077; 87186; 87205; 99283; 99284

== ENCOUNTER 2025-01-31 13:56 | Outpatient (AMB) | payer OTHER, SELFPAY ==
--- OUTSIDE RECORDS SUMMARY | 2025-01-29 14:30 | XMS_ITS | Encounter Summary ---
Author Organization [facility] [address] Care Team Providers Care Wall Worker Name Role Phone Aki Ritchie MD Primary Care Provider + [phone] Reason for Visit * Consultation (Routine) - Authorized Specialty Diagnoses / Procedures Referred By Contmarycruz castro Referred To Contact Physical Therapy Diagnoses Acute back pain with sciatica, unspecified laterality Leighton Reina PA [address] [place] [address] Phone: tel: fax: Referral ID Status Reason Start Date Expiration Date Visits Requested Visits Authorized [id number] Authorized Specialty Services Required 11/01/2024 11/01/2025 21 21 Encounter Details Date Type Department Care Team ([facility] st Contact Info) Description 01/29/2025 2:30 PM EDT Treatment Outpatient [address] [address] Balbina Perera PTA Acute back pain with [...] Progress Notes * Balbina Perera PTA - 01/29/2025 2:30 PM EDT [facility]- Outpatient PHYSICAL THERAPY DAILY TREATMENT NOTE - OP Date: 01/29/2025 Visit Number: [id number] Patient Name: Edgar oCle : 1975 Age: 49 y.o. Gender: male Diagnosis: ICD-10-CM ICD-9-CM 1. Acute back pain with sciatica, unspecified laterality M54.40 724.3 Date of Onset/Surgery: 10/20/2024 Referring Provider: Leighton Reina PA Insurance: Payor: [facility] / Plan: [facility] / Product Type: *No Product type* / Patient Identified by: Balbina Perera PTA Language: Speaks and understands Bruneian as preferred language with no sales enablement lead required Medications: Current Outpatient Medications on File [...] risk: Yes SUBJECTIVE: Subjective Report: I had pain that started on Monday out of the Blue. I was in my friends pool on Sat and I was fine. The pain increased over 3 days and it was going into the back of both of my legs.Today, I feel it across my low back. I tried to do the Lumbar unloading that you showed me w/o any relief. Chart Reviewed: Yes Pain: Low back w/o LE Rad sx's. 12/26. OBJECTIVE: Vitals: There were no vitals filed for this visit.; TREATMENT INTERVENTION: Manual Therapy: STM/MFR to L/S paraspinals. Pin/stretch L Piriformis. Lumbar Unloading Technique in H/L. Therex: Nu Step L5 x 5 minutes. Self Lumbar Unloading outside of True stretch x 4 reps w/ 10-15 sec distraction. Prone RF stretch w/ strap x 2 reps on each side w/ 30 sec hold. Lion stretch x 2 reps w/ 30 sec hold. Quadriped w/ ALT LE's x 10 reps on each side. Lateral Flex strengthening in standing w/ [place] cord x 2 sets of 10 on each side. Seated Crunches w/ Blue cord x 2 sets of 10.( Held today) ASSESSMENT/Response to Treatment Good Low back pain 10/26. No Rad LE Sx's reported @ end of session. Increased RF length as demonstrated w/ prone RF stretch w/ strap. No antalgic GT present @ beginning or end of session. Patient Education: Education provided: Pt educated on aggressively kicking w/ swimming. PLAN POC Development/Review: No Change in the Plan of Care; Participants: Patient Interventions Time Entry: Modalities: Therapeutic procedures: Therex: 21 Manual Therapy: 9 Total Treatment Time: 30 Documentation completed by Balbina Perera PTA documented in this encounter Plan of Treatment Upcoming Encounters Date Type Department Care Team (Late st Contact Info) Description 02/03/2025 3:00 PM EDT Treatment Outpatient Rehabilitation [address] [address] Hunter Rojo PT documented as of this encounter Goals Goal Patient Goal Type Associated Problems Recent Progress Patient-Stated? Author LTG's General Yes Hunter Rojo PT Note: [...] Primary documented in this encounter Care Teams Wall Worker Relationship Specialty Start Date End Date Aki Ritchie MD [address] [place] [address] Dr [address] [place], [place] PCP - General Internal Medicine 11/17/16 documented as of this encounter
[2025-01-31 13:57] VITALS: BP 110/86; PULSE 97; O2SAT 97; BMI 28.9
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
== END 2025-01-31 14:49 | disposition home or self-care (01) ==
LOC: HO.HMCH 13:56
PROVIDERS: PCP Internal Medicine; Visit Provider Nurse Practitioner Family
DX: L03.119 Cellulitis of unspecified part of limb (principal)

== ENCOUNTER → 2025-01-31 13:56 | Outpatient (BNVA) | payer OTHER, SELFPAY | PROVIDERS: PCP Internal Medicine; Visit Provider Nurse Practitioner Family | DX: L03.032 Cellulitis of left toe (principal) | CPT/HCPCS: 96127; 99212 ==

== ENCOUNTER 2025-02-18 16:04 | Outpatient (AMB) | payer OTHER, SELFPAY ==
[2025-02-18 16:08] VITALS: BP 100/72; PULSE 99; TEMP 36.6; O2SAT 98; BMI 29.0
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
--- OUTSIDE RECORDS SUMMARY | 2025-02-18 16:47 | XMS_ITS | Clinical Summary ---
Author Organization [address] [facility] Address [address] [place] [address] Phone Care Team Providers Care Director Microbiology Name Role Phone Aki Ritchie MD Primary Care Provider + [phone] Allergies Active Allergy Reactions Criticality Noted Date [...] Trulicity 3 mg/0.5 mL pen injector injection 4 Active blood sugar diagnostic (FreeStyle Lite Strips) test strip USE 1 STRIP TO CHECK BLOOD GLUCOSE TWICE DAILY Active FreeStyle Lite Meter monitoring kit See administration instructions. Active cephalexin (KEFLEX) 500 mg capsule Take 1 capsule (500 mg total) by mouth. Active Lantus Solostar U-100 Insulin 100 unit/mL (3 mL) injection pen ADMINISTER 10 UNITS UNDER THE SKIN EVERY EVENING Active ketorolac (TORADOL) 10 mg tablet Active FreeStyle Lancets 28 gauge lancets 2 (two) times a day. as directed Active Unifine Pentips 32 gauge x 5/32 needle USE DIRECTED EVERY EVENING Active sulfamethoxazo le-trimethopri m (BACTRIM DS,SEPTRA DS) 800-160 mg per tablet Take 1 tablet by mouth 2 (two) times a day. for 7 days Active Active Problems Problem Noted Date Diagnosed Date Acute bilateral low back pain with bilateral sci atica 11/01/2024 Assessment & Plan (02/04/2025 3:35 PM EDT): Mr. Sellers describes low back pain with radiation down the backs of both legs. He says that the leg pain can come and go and the back pain is not really consistent either. He has been going to physical therapy and just completed the course. Talked about an MRI, but given that his symptoms come and go he would not consider surgical intervention at this time. He will continue with his home exercises and take NSAIDs when he has having a bad day. We talked about acupuncture as another reasonable conservative modality. He will follow-up with us on an as-needed basis. Assessment & Plan (11/01/2024 5:10 PM EDT): [...] Recent x-rays of the lumbar spine at [facility] show evidence of his prior L5-S1 posterior lumbar interbody fusion with pedicle screw fixation. On close inspection, it appears that one of his S1 screws may be fractured. I reviewed the films with Dr. Nazario who agreed. I am going to send the patient for some plain x-rays at [facility] with flexion, extension, and oblique views to see if we can see a fracture. If those are clear, we will begin physical therapy. If he still has pain after his therapy, we can consider an MRI of the lumbar spine at that time. Encounters Date Type Department Care Team Description 02/04/2025 3:00 PM EDT Office Visit Neurosurgery [place] [address] [place] [address] Leighton Reina PA Acute bilateral low back pain with bilateral sciatica (Primary Dx) 02/03/2025 3:00 PM EDT Treatment Outpatient [address] [phone] Hunter Rojo, PT Acute back pain with sciatica, unspecified laterality (Primary Dx) 01/29/2025 2:30 PM EDT Treatment Outpatient [address] [phone] Balbina Perera, EDUCATION MANAGERS Acute back pain with sciatica, unspecified laterality (Primary Dx) 01/22/2025 2:30 PM EDT Treatment Outpatient [address] [phone] Hunter Rojo, PT Acute back pain with sciatica, unspecified laterality (Primary Dx) 01/20/2025 3:00 PM EDT Treatment Outpatient [address] [phone] Balbina Perera, EDUCATION MANAGERS Acute back pain with sciatica, unspecified laterality (Primary Dx) 01/15/2025 3:00 PM EDT Treatment Outpatient [address] [phone] Lolos, Balbina H, EDUCATION MANAGERS Acute back pain with sciatica, unspecified laterality (Primary Dx) 01/13/2025 3:00 PM EDT Treatment Outpatient [address] [phone] Lolos, Balbina H, [employer]UCATION MANAGERS Acute back pain with sciatica, unspecified laterality (Primary Dx) 01/09/2025 1:30 PM EDT Treatment Outpatient [address] [phone] Hunter Rojo, PT Acute back pain with sciatica, unspecified laterality (Primary Dx) 12/30/2024 3:30 PM EDT Treatment Outpatient [address] [phone] Lohaleys, Balbina H, [employer]UCATION MANAGERS Acute back pain with sciatica, unspecified laterality (Primary Dx) 12/25/2024 3:30 PM EDT Treatment Outpatient [address] [phone] Lohaleys, Balbina H, [employer]UCATION MANAGERS Acute back pain with sciatica, unspecified laterality (Primary Dx) 12/23/2024 3:30 PM EDT Treatment Outpatient [address] [phone] Hunter Rojo, PT Acute back pain with sciatica, unspecified laterality (Primary Dx) 12/09/2024 3:30 PM EDT Treatment Outpatient [address] [phone] Lohaleys, Balbina H, [employer]UCATION MANAGERS Acute back pain with sciatica, unspecified laterality (Primary Dx) 12/04/2024 3:30 PM EDT Treatment Outpatient [address] [phone] Lohaleys, Balbina H, [employer]UCATION MANAGERS Acute back pain with sciatica, unspecified laterality (Primary Dx) 12/02/2024 3:00 PM EDT Treatment Outpatient [address] [phone] Balbina Perera H, [employer]UCATION MANAGERS Acute back pain with sciatica, unspecified laterality (Primary Dx) 11/25/2024 12:00 PM EDT Evaluation Outpatient Rehabilitation [address] [phone] Hunter Rojo, PT Acute back pain with sciatica, unspecified laterality (Primary Dx) from Last 3 Months Immunizations Name Administration Dates Next Due Hepatitis A Adult (Havrix; Vaqta) 19yo and older 09/21/2012 Hepatitis B (Emmnhgp-V-Ruwkz , Recombivax HB-Adult) 19yo and older 09/21/2012 [...] Smoking Tobacco: Former Cigarettes Smokeless Tobacco: Never Tobacco Cessation:Counseling Given: Not Answered Sex and Gender Information Value Date Recorded Sex Assigned at Not on file Legal Sex Male 1:47 AM EST Gender Identity Not on file Sexual Orientation Not on file Obstetrics History Last Filed Vital Signs Vital Sign Reading Time Taken Comments Blood Pressure - - Pulse - - Temperature - - Respiratory Rate - - Oxygen Saturation - - Inhaled Oxygen Concentration - - Weight 83 kg (183 lb) 02/04/2025 3:00 PM EDT Height 167.6 cm (5' 6 ) 02/04/2025 3:00 PM EDT Body Mass Index 29.54 02/04/2025 3:00 PM EDT Plan of Treatment Health Maintenance Due Date Last Done Comments Hepatitis B Vaccines (2 of 3 - 19+ 3-dose series) 10/19/2012 09/21/2012 Pneumococcal Vaccine: 50+ Years (2 of 2 - PCV) 08/22/2023 06/06/2012 Zoster Vaccines (1 of 2) 08/22/2023 Depression Screening 06/19/2024 Cholesterol Screening (Lipid Panel) 10/28/2024 Colorectal Cancer Screening: Colonoscopy 10/28/2024 HIV Screening 10/28/2024 Hepatitis C Screening 10/28/2024 Medicare Annual Wellness Visit 10/28/2024 Social Influencers of Health Screening 10/28/2024 COVID-19 Vaccine ( season) 2025 01/11/2022, 04/22/2021, 10/07/2020, Additional history exists Influenza Vaccine (#1) 2025 06/06/2012 DTaP,Tdap,and Td Vaccines (3 - Td or Tdap) 11/02/2027 11/01/2017, 04/08/2015 Hepatitis A Vaccines Aged Out 09/21/2012 No [...] Subscriber Plan / Payer (Ef fective 2018-Present) Name:KURT SELLERS Relation to Subscriber:Self Name:Kurt Sellers Payer ID:[id number] Group ID:[id number] Type:Not on file Address: [place] [address] [place] [id number] Care Teams Director Microbiology Relationship Specialty Start Date End Date Aki Ritchie MD [address] [place] [address] Dr [address] FIDEL Hoffmann PCP - General Internal Medicine 11/17/16
--- OUTSIDE RECORDS SUMMARY | 2025-02-18 16:47 | XMS_ITS | Clinical Summary ---
Author Organization [facility] Address [address] [facility] [address] [place] [id number] Phone Care Team Providers Care Bailiff Name Role Phone Aki Ritchie MD Primary Care Provider [phone] Allergies No known active allergies Medications cyclobenzaprine [...] 08/22/2023 ZOSTER VACCINES (1 of 2) 08/22/2023 INFLUENZA VACCINE (#1) 2025 COVID-19 VACCINE ( - 2023-2 5 season) 2025 HEPATITIS A VACCINES Aged Out No long [...] topic Medical Devices Not on file Insurance CARE MEDICARE REPLACEMENT MEDICARE REPLACEMENT CARE MEDICARE REPLACEMENT CARE MEDICARE REPLACEMENT MEDICARE REPLACEMENT CARE MEDICARE REPLACEMENT [facility] ONE CARE MEDICARE REPLACEMENT [place] [id number] Care Teams Bailiff Relationship Specialty Start Date End Date Aki Ritchie MD [address] [place] [address] Dr [address] [place] [address], [place] [address] PCP - General Internal Medicine 11/24/23 Additional Source Comments The information contained in this document represents components of the legal health record. It is not the complete legal health record.[facility]
== END 2025-02-18 16:59 | disposition home or self-care (01) ==
PROVIDERS: PCP Internal Medicine; Visit Provider Physician Assistant Medical
DX: B35.3 Tinea pedis (principal)

== ENCOUNTER → 2025-02-18 16:04 | Outpatient (BNVA) | payer OTHER, SELFPAY | PROVIDERS: PCP Internal Medicine; Visit Provider Physician Assistant Medical | DX: B35.3 Tinea pedis (principal) | CPT/HCPCS: 99212 ==

== ENCOUNTER 2025-03-03 14:58 | Outpatient (AMB) | payer OTHER, SELFPAY ==
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
[2025-03-03 15:05] VITALS: BMI 29.0
--- OUTSIDE RECORDS SUMMARY | 2025-03-03 20:24 | XMS_ITS | Clinical Summary ---
Author Organization [facility] Address [address] [facility] [address] [place] [address] Phone Care Team Providers Care Glued Wood Tester Name Role Phone Aki Ritchie MD Primary Care Provider [phone] Allergies No known active allergies Medications cyclobenzaprine [...] MEDICARE REPLACEMENT MEDICARE REPLACEMENT CARE MEDICARE REPLACEMENT [facility] ONE CARE MEDICARE REPLACEMENT [place] [id number] Care Teams Glued Wood Tester Relationship Specialty Start Date End Date Aki Ritchie MD [address] [place] [address] Dr Green [address] [place] [address], [place] [address] PCP - General Internal Medicine 11/24/23 Additional Source Comments The information contained in this document represents components of the legal health record. It is not the complete legal health record.[facility]
--- OUTSIDE RECORDS SUMMARY | 2025-03-03 20:24 | XMS_ITS | Clinical Summary ---
Author Organization [address] [facility] Address [address] [place] [address] Phone Care Team Providers Care Senior Clinical Data Manager Name Role Phone Aki Ritchie MD Primary Care Provider [phone] Allergies Active Allergy Reactions Criticality Noted Date [...] Recent x-rays of the lumbar spine at [facility]3] show evidence of his prior L5-S1 posterior lumbar interbody fusion with pedicle screw fixation. On close inspection, it appears that one of his S1 screws may be fractured. I reviewed the films with Dr. Nazario who agreed. I am going to send the patient for some plain x-rays at [facility] with flexion, extension, and oblique views to see if we can see a fracture. If those are clear, we will begin physical therapy. If he still has pain after his therapy, we can consider an MRI of the lumbar spine at that time. Encounters Date Type Department Care Team Description 02/04/2025 3:00 PM EDT Office Visit Neurosurgery [place] [address] [place] [address] Leighton Reina PA Acute bilateral low back pain with bilateral sciatica (Primary Dx) 02/03/2025 3:00 PM EDT Treatment Outpatient [address] [phone] Hunter Rojo, PT Acute back pain with sciatica, unspecified laterality (Primary Dx) 01/29/2025 2:30 PM EDT Treatment Outpatient [address] [phone] Balbina Perera, SENIOR CLINICAL RESEARCH SCIENTIST Acute back pain with sciatica, unspecified laterality (Primary Dx) 01/22/2025 2:30 PM EDT Treatment Outpatient [address] [phone] Hunter Rojo, PT Acute back pain with sciatica, unspecified laterality (Primary Dx) 01/20/2025 3:00 PM EDT Treatment Outpatient [address] [phone] Balbina Perera, SENIOR CLINICAL RESEARCH SCIENTIST Acute back pain with sciatica, unspecified laterality (Primary Dx) 01/15/2025 3:00 PM EDT Treatment Outpatient [address] [phone] Lolos, Balbina H, SENIOR CLINICAL RESEARCH SCIENTIST Acute back pain with sciatica, unspecified laterality (Primary Dx) 01/13/2025 3:00 PM EDT Treatment Outpatient [address] [phone] Lolos, Balbina H, SENIOR CLINICAL RESEARCH SCIENTIST Acute back pain with sciatica, unspecified laterality (Primary Dx) 01/09/2025 1:30 PM EDT Treatment Outpatient [address] [phone] Hunter Rojo, PT Acute back pain with sciatica, unspecified laterality (Primary Dx) 12/30/2024 3:30 PM EDT Treatment Outpatient [address] [phone] Lohaleys, Balbina H, SENIOR CLINICAL RESEARCH SCIENTIST Acute back pain with sciatica, unspecified laterality (Primary Dx) 12/25/2024 3:30 PM EDT Treatment Outpatient [address] [phone] Lohaleys, Balbina H, SENIOR CLINICAL RESEARCH SCIENTIST Acute back pain with sciatica, unspecified laterality (Primary Dx) 12/23/2024 3:30 PM EDT Treatment Outpatient [address] [phone] Hunter Rojo, PT Acute back pain with sciatica, unspecified laterality (Primary Dx) 12/09/2024 3:30 PM EDT Treatment Outpatient [address] [phone] Lohaleys, Balbina H, SENIOR CLINICAL RESEARCH SCIENTIST Acute back pain with sciatica, unspecified laterality (Primary Dx) 12/04/2024 3:30 PM EDT Treatment Outpatient [address] [phone] Lohaleys, Balbina H, SENIOR CLINICAL RESEARCH SCIENTIST Acute back pain with sciatica, unspecified laterality (Primary Dx) 12/02/2024 3:00 PM EDT Treatment Outpatient [address] [phone] Balbina Perera H, SENIOR CLINICAL RESEARCH SCIENTIST Acute back pain with sciatica, unspecified laterality (Primary Dx) from Last 3 Months Immunizations Name Administration Dates Next Due Hepatitis A Adult (Havrix; Vaqta) 19yo and older 09/21/2012 Hepatitis B (Fmdbkxd-R-Huapd , Recombivax HB-Adult) 19yo and older 09/21/2012 [...] patient's age to complete this topic Insurance [facility] MEDICARE Member Subscriber Plan / Payer (Ef fective 2018-Present) Name:KURT SELLERS Relation to Subscriber:Self Name:Kurt Sellers Payer ID:[id number] Group ID:[id number] Type:Not on file Address: [address] [place] [address] Care Teams Senior Clinical Data Manager Relationship Specialty Start Date End Date Aki Ritchie MD [address] [place] [address] [address] FIDEL Hoffmann PCP - General Internal Medicine 11/17/16
== END 2025-03-03 15:48 | disposition home or self-care (01) ==
LOC: HO.HPODS 14:59
PROVIDERS: PCP Internal Medicine; Visit Provider Student in an Organized Health Care Education/Training Program
DX: B35.3 Tinea pedis (principal); E11.9 Type 2 diabetes mellitus without complications
CPT/HCPCS: 99204

== ENCOUNTER 2025-03-03 15:28 | Outpatient (REF) | payer OTHER, SELFPAY | END 2025-03-03 15:29 | disposition home or self-care (01) | LOC: HO.LAB 15:28 | PROVIDERS: Visit Provider Student in an Organized Health Care Education/Training Program | DX: B35.3 Tinea pedis (principal); E11.9 Type 2 diabetes mellitus without complications | CPT/HCPCS: 87101; 87220; 99202 ==

== ENCOUNTER 2025-04-07 10:34 | Outpatient (REF) | payer OTHER, SELFPAY ==
[2025-04-07 10:57] LABS: MANUAL DIFF FLAG NO
[2025-04-07 11:25] LABS: Hematocrit 46.2 % (42.0-52.0); Hemoglobin 15.2 g/dl (14.0-18.0); Imm Gran Abs Auto 0.04 X10*3/uL (0.00-0.03); Imm Gran Pct Auto 0.6 % (0.0-0.4); Lymphocytes Absolute Auto 2.0 X10*3/uL (1.2-4.9); Mean Corpuscular HGB Conc 32.9 g/dl (31.0-36.0); Mean Corpuscular Hemoglobin 29.1 pg (27.0-33.0); Mean Corpuscular Volume 88.5 fL (80.0-98.0); NRBC Abs Auto 0.000 X10*3/uL (0.0-0.012); NRBC Pct Auto 0.0 /100WBC (0.0-0.2); Platelet Count 208 X10*3/uL (160-400); Red Blood Count 5.22 X10*6/uL (4.60-5.80); White Blood Count 6.3 X10*3/uL (4.8-10.8)
[2025-04-07 12:09] LABS: Alanine Aminotransferase 33 U/L (0-40); Albumin Level 4.5 g/dL (3.5-5.0); Alkaline Phosphatase 81 U/L (39-117); Anion Gap 12 (12-20); Aspartate Amino Transferase 27 U/L (5-37); Blood Urea Nitrogen 14 mg/dL (9-16); Calcium 8.9 mg/dL (8.4-10.2); Carbon Dioxide 30 mmol/L (22-29); Chloride 105 mmol/L (96-108); Cholesterol 133 mg/dL (<200); Estimated Glomerular Filt Rate > 60; HDL Cholesterol 37 mg/dL (>40); Potassium 4.3 mmol/L (3.3-5.1); Sodium 143 mmol/L (135-145); Total Protein 7.1 g/dL (6.5-8.0); Triglycerides 106 mg/dL (<150)
[2025-04-07 12:30] LABS: Appearance Urine Clear; Glucose Urine UA >=1000 mg/dL (Negative); PH 6.5 (5.0-9.0); Specific Gravity - Urine >= 1.030 (1.005-1.025); UMIC TRIGGER UACC YES
--- OUTSIDE RECORDS SUMMARY | 2025-04-07 12:39 | XMS_ITS | Clinical Summary ---
Author Organization [facility] Address [address] [facility] [address] [place] [address] Phone Care Team Providers Care Business Banking Representative Name Role Phone Aki Ritchie MD Primary Care Provider [phone] Allergies No known active allergies Medications cyclobenzaprine [...] VACCINE (#1) 2025 COVID-19 VACCINE ( - 2024-2 6 season) 2025 RSV VACCINE (1 - 1-dose 75+ series) 2048 HEPATITIS A VACCINES Aged Out No long [...] MEDICARE REPLACEMENT MEDICARE REPLACEMENT CARE MEDICARE REPLACEMENT MEDICARE REPLACEMENT MEDICARE REPLACEMENT MEDICARE REPLACEMENT [facility] ONE CARE MEDICARE REPLACEMENT [place] [id number] Care Teams Business Banking Representative Relationship Specialty Start Date End Date Aki Ritchie MD [address] [place] [id number] PCP - General Internal Medicine 11/24/23 Additional Source Comments The information contained in this document represents components of the legal health record. It is not the complete legal health record.[facility]
--- OUTSIDE RECORDS SUMMARY | 2025-04-07 12:39 | XMS_ITS | Clinical Summary ---
Author Organization [facility] Address [address] [place] [address] Phone Care Team Providers Care Hearing Therapy Director Name Role Phone Aki Ritchie MD Primary Care Provider + [phone] Allergies Active Allergy Reactions Criticality Noted Date [...] Recent x-rays of the lumbar spine at [facility] show evidence of his prior L5-S1 posterior lumbar interbody fusion with pedicle screw fixation. On close inspection, it appears that one of his S1 screws may be fractured. I reviewed the films with Dr. Nazario who agreed. I am going to send the patient for some plain x-rays at [facility] with flexion, extension, and oblique views to see if we can see a fracture. If those are clear, we will begin physical therapy. If he still has pain after his therapy, we can consider an MRI of the lumbar spine at that time. Encounters Date Type Department Care Team Description 02/04/2025 3:00 PM EDT Office Visit Neurosurgery [place] [address] [place] [address] Leighton Reina PA Acute bilateral low back pain with bilateral sciatica (Primary Dx) 02/03/2025 3:00 PM EDT Treatment Outpatient [address] [phone] Hunter Rojo, PT Acute back pain with sciatica, unspecified laterality (Primary Dx) 01/29/2025 2:30 PM EDT Treatment Outpatient [address] [phone] Balbina Perera, SULFONATION EQUIPMENT OPERATOR Acute back pain with sciatica, unspecified laterality (Primary Dx) 01/22/2025 2:30 PM EDT Treatment Outpatient [address] [phone] Hunter Rojo, PT Acute back pain with sciatica, unspecified laterality (Primary Dx) 01/20/2025 3:00 PM EDT Treatment Outpatient [address] [phone] Balbina Perera, SULFONATION EQUIPMENT OPERATOR Acute back pain with sciatica, unspecified laterality (Primary Dx) 01/15/2025 3:00 PM EDT Treatment Outpatient [address] [phone] Lolos, Balbina H, SULFONATION EQUIPMENT OPERATOR Acute back pain with sciatica, unspecified laterality (Primary Dx) 01/13/2025 3:00 PM EDT Treatment Outpatient Rehabilitation [address] [phone] Balbina Perera, SULFONATION EQUIPMENT OPERATOR Acute back pain with sciatica, unspecified laterality (Primary Dx) 01/09/2025 1:30 PM EDT Treatment Outpatient [address] [phone] Hunter Rojo, DANG Acute back pain with sciatica, unspecified laterality (Primary Dx) from Last 3 Months Immunizations Immunization Administration Dates Next Due Hepatitis A Adult (Havrix; Vaqta) 19yo and older 09/21/2012 Hepatitis B (Znhvtzx-Q-Vbanh , Recombivax HB-Adult) 19yo and older 09/21/2012 [...] Health Maintenance Due Date Last Done Comments Colorectal Cancer Screening: Colonoscopy 1973 Hepatitis B Vaccines (2 of 3 - 19+ 3-dose series) 10/19/2012 09/21/2012 Pneumococcal Vaccine: 50+ Years (2 of 2 - PCV) 08/22/2023 06/06/2012 RSV Immunization Adult Patients (1 - Risk 50-74 years 1-dose series) 08/22/2023 Zoster Vaccines (1 of 2) 08/22/2023 Depression Screening 06/19/2024 Cholesterol Screening (Lipid Panel) 10/28/2024 HIV Screening 10/28/2024 Hepatitis C Screening [...] ID:[id number] Group ID:[id number] Type:Not on file Address: [place] [address] [place] [address] Care Teams Hearing Therapy Director Relationship Specialty Start Date End Date Aki Ritchie MD [address] [place] [address] [address] FIDEL Hoffmann PCP - General Internal Medicine 11/17/16
[2025-04-07 12:41] LABS: Microalbum/Creatinine Ratio Ur 7.9 ug/mg cr (<30)
== END 2025-04-07 10:35 | disposition home or self-care (01) ==
LOC: HO.LAB 10:34
PROVIDERS: PCP Internal Medicine; Visit Provider Internal Medicine
DX: E11.9 Type 2 diabetes mellitus without complications (principal); D64.9 Anemia, unspecified; E78.00 Pure hypercholesterolemia, unspecified
CPT/HCPCS: 36415; 80053; 80061; 81001; 81003; 82043; 82570; 83036; 85025

== ENCOUNTER 2025-04-08 13:02 | Outpatient (AMB) | payer OTHER, SELFPAY ==
[2025-04-08 13:06] VITALS: BP 116/80; PULSE 101; O2SAT 94; BMI 29.5
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
--- OUTSIDE RECORDS SUMMARY | 2025-04-08 16:44 | XMS_ITS | Clinical Summary ---
Author Organization [facility] Address [address] [facility] [address] [place] [id number] Phone Care Team Providers Care Video Game Tester Name Role Phone Aki Ritchie MD Primary Care Provider [phone] Allergies No known active allergies Medications cyclobenzaprine [...] MEDICARE REPLACEMENT MEDICARE REPLACEMENT MEDICARE REPLACEMENT [facility] ONE CARE MEDICARE REPLACEMENT [place] [id number] Care Teams Video Game Tester Relationship Specialty Start Date End Date Aki Ritchie MD [address] [place] [id number] PCP - General Internal Medicine 11/24/23 Additional Source Comments The information contained in this document represents components of the legal health record. It is not the complete legal health record.[facility]
--- OUTSIDE RECORDS SUMMARY | 2025-04-08 16:44 | XMS_ITS | Clinical Summary ---
Author Organization [address] [facility] Address [address] [place] [address] Phone Care Team Providers Care Concrete Rubber Name Role Phone Aki Ritchie MD Primary Care Provider + [phone] Allergies Active Allergy Reactions Criticality Noted Date [...] x-rays of the lumbar spine at [facility] show evidence of his prior L5-S1 posterior lumbar interbody fusion with pedicle screw fixation. On close inspection, it appears that one of his S1 screws may be fractured. I reviewed the films with Dr. Nazario who agreed. I am going to send the patient for some plain x-rays at [facility] with flexion, extension, and oblique views to see if we can see a fracture. If those are clear, we will begin physical therapy. If he still has pain after his therapy, we can consider an MRI of the lumbar spine at that time. Encounters Date Type Department Care Team Description 02/04/2025 3:00 PM EDT Office Visit [facility] [address] [place] [address] Leighton Reina PA Acute bilateral low back pain with bilateral sciatica (Primary Dx) 02/03/2025 3:00 PM EDT Treatment Outpatient [address] [phone] Hunter Rojo, PT Acute back pain with sciatica, unspecified laterality (Primary Dx) 01/29/2025 2:30 PM EDT Treatment Outpatient [address] [phone] Balbina Perera, MANAGER UNIT Acute back pain with sciatica, unspecified laterality (Primary Dx) 01/22/2025 2:30 PM EDT Treatment Outpatient [address] [phone] Hunter Rojo, PT Acute back pain with sciatica, unspecified laterality (Primary Dx) 01/20/2025 3:00 PM EDT Treatment Outpatient [address] [phone] Balbina Perera, MANAGER UNIT Acute back pain with sciatica, unspecified laterality (Primary Dx) 01/15/2025 3:00 PM EDT Treatment Outpatient [address] [phone] Lolos, Balbina H, MANAGER UNIT Acute back pain with sciatica, unspecified laterality (Primary Dx) 01/13/2025 3:00 PM EDT Treatment Outpatient Rehabilitation [address] [phone] Balbina Perera, MANAGER UNIT Acute back pain with sciatica, unspecified laterality (Primary Dx) 01/09/2025 1:30 PM EDT Treatment Outpatient [address] [phone] Hunter Rojo, DANG Acute back pain with sciatica, unspecified laterality (Primary Dx) from Last 3 Months Immunizations Immunization Administration Dates Next Due Hepatitis A Adult (Havrix; Vaqta) 19yo and older 09/21/2012 Hepatitis B (Kqulglx-Z-Jeahd , Recombivax HB-Adult) 19yo and older 09/21/2012 [...] ID:[id number] Group ID:[id number] Type:Not on file Address: [place] [address] [place] [id number] Care Teams Concrete Rubber Relationship Specialty Start Date End Date Aki Ritchie MD [address] [place] [address] [address] FIDEL Hoffmann PCP - General Internal Medicine 11/17/16
== END 2025-04-08 13:53 | disposition home or self-care (01) ==
LOC: HO.HMCH 13:03
PROVIDERS: PCP Internal Medicine; Visit Provider Internal Medicine
DX: E11.9 Type 2 diabetes mellitus without complications (principal); E78.5 Hyperlipidemia, unspecified; R79.89 Other specified abnormal findings of blood chemistry; K21.9 Gastro-esophageal reflux disease without esophagitis; N52.9 Male erectile dysfunction, unspecified; M51.369 Other intervertebral disc degeneration, lumbar region without mention of lumbar back pain or lower extremity pain; G47.62 Sleep related leg cramps; M25.531 Pain in right wrist; E66.3 Overweight

== ENCOUNTER 2025-04-09 10:28 | Outpatient (AMB) | payer OTHER, SELFPAY ==
[2025-04-09 10:43] VITALS: BMI 29.4
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
== END 2025-04-09 11:08 | disposition home or self-care (01) ==
PROVIDERS: PCP Internal Medicine; Visit Provider Student in an Organized Health Care Education/Training Program
DX: B35.3 Tinea pedis (principal); E11.9 Type 2 diabetes mellitus without complications
CPT/HCPCS: 99213

== ENCOUNTER 2025-04-30 13:30 | Outpatient (REF) | payer OTHER, SELFPAY | END 2025-04-30 13:31 | disposition home or self-care (01) | LOC: HO.LNP 13:30 | PROVIDERS: PCP Internal Medicine; Visit Provider Student in an Organized Health Care Education/Training Program | DX: B35.1 Tinea unguium (principal); E11.9 Type 2 diabetes mellitus without complications; B35.3 Tinea pedis | CPT/HCPCS: 87101; 87220; 88304; 88312 ==

== ENCOUNTER 2025-04-30 13:30 | Outpatient (AMB) | payer OTHER, SELFPAY ==
[2025-04-30 13:47] VITALS: BMI 29.4
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
--- OUTSIDE RECORDS SUMMARY | 2025-04-30 16:23 | XMS_ITS | Clinical Summary ---
Author Organization [facility] Address [address] [facility] [address] [place] [id number] Phone Care Team Providers Care Chief Service Observer Name Role Phone Aki Ritchie MD Primary Care Provider [phone] Allergies No known active allergies Medications cyclobenzaprine [...] patient's age to complete this topic IPV VACCINES Aged Out No longer eligi ble based on patient's age to complete this topic MENINGOCOCCAL VACCINES (ACWY) Aged Out No longer eligible based on patient's age to complete this topic MENINGOCOCCAL VACCINES (B) Aged Out N o longer eligible based on patient's age to complete this topic Medical Devices Not on file Insurance MEDICARE REPLACEMENT MEDICARE REPLACEMENT MEDICARE REPLACEMENT MEDICARE REPLACEMENT MEDICARE REPLACEMENT MEDICARE REPLACEMENT [facility] ONE CARE MEDICARE REPLACEMENT Care Teams Chief Service Observer Relationship Specialty Start Date End Date Aki Ritchie MD [address] [place] [address] [address] PCP - General Internal Medicine 11/24/23 Additional Source Comments The information contained in this document represents components of the legal health record. It is not the complete legal health record.[facility]
--- OUTSIDE RECORDS SUMMARY | 2025-04-30 16:24 | XMS_ITS | Clinical Summary ---
Author Organization [address] [facility] Address [address] [place] [address] Phone Care Team Providers Care Meat Carver Name Role Phone Aki Ritchie MD Primary Care Provider + [phone] Allergies Active Allergy Reactions Criticality Noted Date [...] Recent x-rays of the lumbar spine at [facility] show evidence of his prior L5-S1 posterior lumbar interbody fusion with pedicle screw fixation. On close inspection, it appears that one of his S1 screws may be fractured. I reviewed the films with Dr. Nazario who agreed. I am going to send the patient for some plain x-rays at [facility] with flexion, extension, and oblique views to see if we can see a fracture. If those are clear, we will begin physical therapy. If he still has pain after his therapy, we can consider an MRI of the lumbar spine at that time. Encounters Date Type Department Care Team Description 02/04/2025 3:00 PM EDT Office Visit [facility] [address] [place] [address] Leighton Reina PA Acute bilateral low back pain with bilateral sciatica (Primary Dx) 02/03/2025 3:00 PM EDT Treatment Outpatient Rehabilitation - [address] [phone] Hunter Rojo, PT Acute back pain with sciatica, unspecified laterality (Primary Dx) 01/29/2025 2:30 PM EDT Treatment Outpatient Rehabilitation - [address] [phone] Balbina Perera, MOTION PICTURE PHOTOGRAPHER Acute back pain with sciatica, unspecified laterality (Primary Dx) from Last 3 Months Immunizations Immunization Administration Dates Next Due Hepatitis A Adult (Havrix; Vaqta) 19yo and older 09/21/2012 Hepatitis B (Gbnewhh-U-Tpvad , Recombivax HB-Adult) 19yo and older 09/21/2012 [...] Lumbar degenerative disc disease Dyslipidemia Diabetes mellitus ([facility]/HCC V24, CMS/HCC V28) Family History Medical History [...] patient's age to complete this topic [place] [address] [employer] MEDICARE Member Subscriber Plan / Payer (Ef fective 2018-Present) Name:KURT SELLERS Relation to Subscriber:Self Name:Kurt Sellers Payer ID:[id number] Group ID:[id number] Type:Not on file Address: [place] [address] [address] [id number] Care Teams Meat Carver Relationship Specialty Start Date End Date Aki Ritchie MD [address] [place] [address] [address] FIDEL Hoffmann PCP - General Internal Medicine 11/17/16
== END 2025-04-30 14:00 | disposition home or self-care (01) ==
LOC: HO.HPODS 13:31
PROVIDERS: PCP Internal Medicine; Visit Provider Student in an Organized Health Care Education/Training Program
DX: B35.3 Tinea pedis (principal); E11.9 Type 2 diabetes mellitus without complications; B35.1 Tinea unguium
CPT/HCPCS: 99213